=== PATIENT | female | born 1940 | race Caucasian/White ===

== ENCOUNTER → 2016-08-18 | Outpatient (CLI) | payer MEDICARE, OTHER ==
--- NOTE | 2016-08-18 17:06 | CT ---
EXAMINATION TYPE: CT brain wo con DATE OF EXAM: 08/18/2016 4:54 PM COMPARISON: NONE HISTORY: History of stroke. Dizziness and sense of falling to right. CT DLP: 1109.00 mGycm Automated exposure control for dose reduction was used. FINDINGS: Ventricular system is midline. No mass effect or midline shift. Hyperostosis noted. Partially empty s bryon turcica noted.. IMPRESSION: No acute intracranial hemorrhage, mass effect, or midline shift is seen.
== END | disposition home or self-care (01) ==
LOC: RADCTMAIN 16:11
PROVIDERS: ATTEND Psychiatry & Neurology Neurology
DX: Z86.73 Personal history of transient ischemic attack (TIA), and cerebral infarction without residual deficits (principal)
CPT/HCPCS: 70450

== ENCOUNTER → 2017-09-21 | Outpatient (CLI) | payer MEDICARE, OTHER | END | disposition home or self-care (01) | LOC: LABPAT 08:01 | PROVIDERS: ATTEND Orthopaedic Surgery | DX: Z01.812 Encounter for preprocedural laboratory examination (principal); M16.11 Unilateral primary osteoarthritis, right hip | CPT/HCPCS: 36415; 86850; 86900; 86901; 87070 ==

== ENCOUNTER → 2017-09-26 | Outpatient (CLI) | payer MEDICARE, OTHER ==
[2017-09-26 11:51] LABS: Basophils # (A) 0.1 k/uL (0-0.2); Basophils % (A) 1 %; Eosinophils # (A) 0.3 k/uL (0-0.7); Eosinophils % (A) 6 %; HCT 41.9 % (34.0-46.0); Hypochromasia Slight; Lymphocytes # (A) 1.6 k/uL (1.0-4.8); Lymphocytes % (A) 26 %; MCH 30.6 pg (25.0-35.0); MCHC 31.1 g/dL (31.0-37.0); MCV 98.3 fL (80.0-100.0); Mean Platelet Volume 8.2; Monocytes # (A) 0.5 k/uL (0-1.0); Monocytes % (A) 9 %; Neutrophils # (A) 3.4 k/uL (1.3-7.7); Neutrophils % (A) 56 %; Platelet Count 162 k/uL (150-450); RBC 4.26 m/uL (3.80-5.40)
[2017-09-26 11:59] LABS: INR 1.1 (<1.2); Prothrombin Time 10.4 sec (9.0-12.0)
[2017-09-26 12:07] LABS: Potassium 4.5 mmol/L (3.5-5.1)
== END | disposition home or self-care (01) ==
LOC: LABPAT 11:03
PROVIDERS: ATTEND Orthopaedic Surgery
DX: Z01.812 Encounter for preprocedural laboratory examination (principal); M16.11 Unilateral primary osteoarthritis, right hip; Z79.01 Long term (current) use of anticoagulants
CPT/HCPCS: 36415; 80051; 85025; 85610

== ENCOUNTER 2017-09-27 10:30 | Inpatient (IN) | payer MEDICARE, OTHER ==
[2017-09-22 12:40] VITALS: BMI 27.1
--- NOTE | 2017-10-01 15:54 | HP ---
HISTORY AND PHYSICAL Surgery is 10/02/2017. Azul Ravi 76-year-old patient seen with symptomatic right hip osteoarthritis. After treatment options were discussed, she elected to proceed with right total hip arthroplasty. Consent regarding procedure was obtained. Medical clearance provided by Dr. Riley. Cardiac clearance provided by Dr. Cosby. PAST MEDICAL HISTORY: [id number] diabetes, gastroesophageal reflux disease, cardiovascular disease, hyperlipidemia, hypertension. PAST SURGICAL HISTORY: Carpal tunnel surgery, cholecystectomy, knee arthroscopy, rotator cuff repair. Bunionectomy. DAILY MEDICATIONS: Metformin, Micardis, Plavix, Zantac, Vytorin, Orencia, Neurontin. ALLERGIES: ERYTHROMYCIN, ZOFRAN. SOCIAL HISTORY: Patient denies tobacco use. PHYSICAL EXAMINATION: Evaluation right hip: There is very limited range of motion with severe pain. Diffuse tenderness about the hip girdle. Positive hip impingement sign. Straight leg raise is negative. Distal neurovascular exam is intact. RADIOGRAPHS: Radiographs of the right hip reveals severe osteoarthritis. IMPRESSION: 1. Right hip osteoarthritis. 2. Hypertension. 3. Hypercholesterolemia. 4. Gastroesophageal reflux disease. 5. Jkr-bpncgip-elnowfqmg diabetes. PLAN: Direct anterior right total hip arthroplasty. MMODL / IJN: [id number] /
[2017-10-02] MEDS ORDERED: TRANEXAMIC ACID 1,000 MG in SODIUM CHLORIDE 0.9% 50 ML IVPB ONE (05:00)
[2017-10-02] MEDS ORDERED: MELOXICAM 7.5 MG TAB PO ONE (05:00)
[2017-10-02] MEDS ORDERED: ceFAZolin IN SWFI 2 GM/20 ML SYRINGE IVP ONE (05:00)
[2017-10-02] MEDS ORDERED: ACETAMINOPHEN TAB 500 MG TAB PO ONE (05:00)
[2017-10-02] MEDS ORDERED: HYDROmorphone 0.5 MG/0.5 ML SYRINGE IVP PRN ×4 (05:27→12:06)
[2017-10-02] MEDS ORDERED: DEXAMETHASONE SOD PHOSPHATE 10 MG/ML 1 ML VIAL IV ONE (05:27)
[2017-10-02] MEDS ORDERED: ONDANSETRON 4 MG/2 ML VIAL IVP ONE (05:27)
[2017-10-02] MEDS: LACTATED RINGERS 1,000 ML IV SCH (08:59)
[2017-10-02] MEDS ORDERED: LIDOCAINE 1% 20 ML VIAL (10MG/ML) FOR IV START INTRADERMA ONE (08:59)
[2017-10-02 09:08] LABS: Glucose,Whole Blood 176 mg/dL (75-99)
[2017-10-02] MEDS ORDERED: ROPIVACAINE 246.25 MG, EPINEPHrine 0.5 MG, KETOROLAC 30 MG, cloNIDine HCL/PF 80 MCG, WA... MISCELLANE ONE ×5 (09:55)
[2017-10-02] MEDS ORDERED: ceFAZolin 3,000 MG in SODIUM CHLORIDE 0.9% IRRIGATIO 3,000 ML IRRIGATION ONE (10:58)
--- NOTE | 2017-10-02 11:54 | FL ---
Fluoroscopy INDICATION: Pain FINDINGS: Fluoroscopy time: 22 seconds. Images obtained: 1. IMPRESSIONS: 1. Documentation of fluoroscopy.
--- NOTE | 2017-10-02 12:04 | P.OP ---
Date of Procedure: 10/02/17 Preoperative Diagnosis: Right hip osteoarthritis Postoperative Diagnosis: Right hip osteoarthritis Procedure(s) Performed: Direct anterior right total hip arthroplasty Implants: 1. Depuy Corail GUILLORY-coated standard no collar size 13 press-fit femoral stem 2. Depuy pinnacle press-fit acetabular shell 52 mm 3. Depuy pinnacle polyethylene acetabular liner neutral 36 mm ID 52 mm OD 4. Depuy metallic femoral head 36 mm -2 Anesthesia: ADALA, local Surgeon: Asim Oliver Toolroom Attendant #1: Andrea Way Estimated Blood Loss (ml): 250 Pathology: other (Femoral head) Condition: stable Disposition: PACU Indications for Procedure: 76-year-old patient seen with symptomatic right hip osteoarthritis. After treatment options were discussed, she elected to proceed with total hip arthroplasty. Operative Findings: See description of procedure Description of Procedure: The patient was taken to the operative suite. Patient underwent a general anesthetic by the department of anesthesia. Patient was then transferred to the [place] table. Patient was given preoperative IV antibiotics and TXA. Both lower extremities were placed in standard leg spars. The hip was then prepped and draped in the normal sterile orthopedic fashion. A standard anterior incision was made beginning 3 cm lateral and 1 cm distal to the ASIS extending 10 cm. Dissection was then carried down through the subcutaneous soft tissues down to the fascia overlying the tensor fascia florencia. An incision was now made through the fascia. Careful dissection was taken down exposing the tensor fascia florencia muscle. A Cobra retractor was now placed along the medial femoral neck and a second one along the lateral femoral neck. The venous circumflex vessels were now identified, cauterized and clipped. We identified the anterior hip capsule. An incision was made through the hip capsule along the lateral border. Tag sutures were then placed along the anterior capsule and lateral capsule. We then performed a capsulotomy. Retractors were now placed around the femoral neck itself. A Cobra retractor was now placed along the anterior acetabulum. Good exposure was now noted of the femoral head/neck complex. Residual labrum was debrided out. We placed the extremity into 3 turns of fine traction. We were then able to introduce a skid in between the femoral head and acetabulum. A placed a awl into the femoral head. We took 2 turns of traction off the extremity. Rotation was now released. The femoral head was then dislocated without difficulty. Additional releasing was performed of the capsule. The head was then reduced. All traction was released. A femoral neck cut was now made with a sagittal saw. It was completed with an osteotome at the lateral neck area. The femoral head was now removed without difficulty. There was advanced osteoarthritis of both the femoral head and acetabulum. The extremity was now rotated to 60 of external rotation. It was locked in position. Residual labrum was now debrided out. Serial reaming was performed of the acetabulum. Once we reached the appropriate size and a trial was position and fit nicely. The appropriate size was now chosen opened and made available. The wound was irrigated with pulse lavage mechanical irrigation. It was introduced into the acetabulum without difficulty. The C-arm/fluoroscopy was now brought into the operative field. We made sure we had a true AP pelvic view. We now under direct C-arm/ fluoroscopy introduced into the acetabular component with appropriate version and inclination. It was well seated and stable. The C-arm was pulled back. An appropriate liner was introduced and clicked into position. It was felt to be stable. At this point retractors were removed. The extremity was now placed into 120 external rotation with no traction. The leg was now dropped to the ground and adducted. Appropriate retractors were now positioned along the proximal femur. We also placed our femoral look into position. Additional capsular releasing was performed to gain access to the proximal femur. We now used a box osteotome. A canal finder was now utilized. Serial broaching was now performed until we reached the appropriate size with good overall rotational stability. Appropriate calcar planing was performed. A trial head/ neck was placed into position. The hip was now reduced. The C-arm/fluoroscopy was brought back into the operative field. A spot film was obtained of the nonoperative hip. A spot film was obtained of the trial components. Overlays were performed, we noted good overall alignment and positioning for determining leg length. The C-arm/fluoroscopy was pulled back. Retractors were repositioned and the hip was dislocated. The leg was again taken down to the ground and adducted. Appropriate retractors were repositioned as well as the femoral hook. All trial components were removed. The wound was irrigated with pulse lavage mechanical irrigation. The deep soft tissues were infiltrated with local analgesic. The femoral implant was opened along with the femoral head. The femoral implant was introduced with good purchase and fixation noted. The femoral head was introduced with good positioning and fixation noted. Retractors were now removed. The hip was now reduced. There appeared be good positioning of the hip. This was confirmed on fluoroscopy and spot films were obtained intraoperatively to document that. Bipolar cautery had been utilized intermittently through the procedure for hemostasis. The wound was irrigated copiously with pulse lavage mechanical irrigation. The superficial soft tissues were infiltrated local analgesic. The fascia was repaired with Vicryl suture. The subcutaneous soft tissues were repaired in layers with Vicryl suture. The skin was approximated with pernio/Dermabond. Sterile dressings were applied. Patient was then awakened, transferred to a bed and taken to recovery in stable condition. Jorge A ALVARADO assisted with the procedure.
[2017-10-02] MEDS ORDERED: ONDANSETRON 4 MG/2 ML VIAL IVP PRN (12:06)
[2017-10-02] MEDS ORDERED: NALOXONE 0.4 MG/ML 1 ML VIAL IV PRN (12:06)
[2017-10-02] MEDS: ePHEDrine 50 MG/ML 1 ML AMP IVP ONE ×3 (12:38→12:52)
[2017-10-02] MEDS ORDERED: LACTATED RINGERS 1,000 ML IV ONE (12:42)
[2017-10-02] MEDS: HYDROcodone/APAP 7.5-325MG 1 EACH TAB PO PRN ×2 (14:29→21:22)
[2017-10-02] MEDS: traMADol 50 MG TAB PO SCH ×2 (15:20→17:36)
[2017-10-02] MEDS: SODIUM CHLORIDE 0.9% 1,000 ML IV SCH (16:59)
[2017-10-02 17:00] LABS: Glucose,Whole Blood 224 mg/dL (75-99)
[2017-10-02] MEDS: ceFAZolin IN SWFI 2 GM/20 ML SYRINGE IVP SCH (17:36)
[2017-10-02 20:58] LABS: Glucose,Whole Blood 206 mg/dL (75-99)
[2017-10-02] MEDS: SENNOSIDES-DOCUSATE SODIUM 1 EACH TAB PO SCH (22:09)
[2017-10-02] MEDS: INSULIN ASPART 100 UNIT/ML 1 ML 10 ML VIAL SQ SCH (22:10)
[2017-10-02 22:29] LABS: Basophils % (A) 0 %; Eosinophils % (A) 0 %; HCT 31.6 % (34.0-46.0); HGB 10.1 gm/dL (11.4-16.0); Lymphocytes # (A) 0.9 k/uL (1.0-4.8); Lymphocytes % (A) 8 %; MCH 30.6 pg (25.0-35.0); MCHC 31.8 g/dL (31.0-37.0); MCV 96.1 fL (80.0-100.0); Mean Platelet Volume 8.1; Monocytes # (A) 0.7 k/uL (0-1.0); Monocytes % (A) 6 %; Neutrophils # (A) 9.6 k/uL (1.3-7.7); Neutrophils % (A) 85 %; Platelet Count 130 k/uL (150-450); RBC 3.29 m/uL (3.80-5.40); WBC 11.3 k/uL (3.8-10.6)
[2017-10-02 22:44] LABS: Anion Gap 10 mmol/L; Blood Urea Nitrogen 24 mg/dL (7-17); Carbon Dioxide 25 mmol/L (22-30); Chloride 102 mmol/L (98-107); Glucose 182 mg/dL (74-99); Potassium 4.7 mmol/L (3.5-5.1); Sodium 137 mmol/L (137-145)
[2017-10-02] MEDS: metFORMIN 500 MG TAB PO SCH (23:08)
[2017-10-02] MEDS: GABAPENTIN 400 MG CAP PO SCH (23:09)
[2017-10-03] MEDS: traMADol 50 MG TAB PO SCH ×6 (00:12→22:35)
--- NOTE | 2017-10-03 01:03 | CONS ---
CONSULTATION DATE OF SERVICE: 10/02/2017. REASON FOR CONSULTATION: Advice regarding diabetes mellitus and multiple other medical issues, requested by Orthopedic Surgery. HISTORY: The patient is a 76-year-old woman with a past history diabetes, hypertension, history of DJD, rheumatoid arthritis, being followed by Dr. Riley in the outpatient setting, underwent direct anterior right total hip arthroplasty by Dr. Oliver. There is no history of chest pain, no palpitations, no headache or loss consciousness. No nausea, vomiting or diarrhea. PAST MEDICAL HISTORY: Asthma, CVA, TIA, diabetes, hypertension, hyperlipidemia, history of DJD, history of rheumatoid arthritis. MEDICATIONS: Prior home medications: 1. Metformin 500 mg p.o. t.i.d. 2. Norvasc 5 mg p.o. daily. 3. Valsartan hydrochlorothiazide 320/10 mg p.o. a.m. 4. Multivitamins daily. 5. Singular 10 mg at bedtime. 6. [place] 7.5, 1 to 2 tables every 6 hours. 7. Neurontin 800 mg p.o. q.i.d. 8. Lodine 400 mg p.o. b.i.d. 9. Nexium 40 mg b.i.d. 10.Plavix 10 mg b.i.d. 11.Vitamin D3, 5000 daily. 12.Lipitor 40 mg every a.m. 13.Tenormin 12.5 mg a.m. ALLERGIES: REMICADE, ZOFRAN, ERYTHROMYCIN. FAMILY HISTORY: History of cancer in the family. SOCIAL HISTORY: No history of smoking. Occasional alcohol intake. REVIEW OF SYSTEMS: ENT: No diminished vision. CARDIOVASCULAR: No angina. RESPIRATORY: No cough or hemoptysis. GI: No nausea. : No dysuria. NERVOUS SYSTEM: No numbness or weakness. ALLERGY: None. MUSCULOSKELETAL: As mentioned earlier. ENDOCRINE: History of diabetes. CONSTITUTIONAL: As mentioned earlier. DERMATOLOGY: As mentioned. RHEUMATOLOGIC: As mentioned. PHYSICAL EXAMINATION: Alert, oriented x3. Pulse 64, blood pressure 94/60, respiration 20, temp normal, pulse ox 94% on room air. HEENT: Normal. Oral mucosa moist. NECK: No jugular venous distention. No lymph node enlargement. CARDIOVASCULAR: S1 and S2 muffled. LUNGS: Breath sounds diminished in the bases. No rhonchi, no crackles. ABDOMEN: Soft. LEGS: Status post surgery. NERVOUS SYSTEM: Higher functions as mentioned. Moves all four limbs. No focal deficits. SKIN: No rashes. JOINTS: As mentioned earlier. LAB STUDIES: Glucose 206. ASSESSMENT: 1. Status post right hip arthroplasty. 2. Diabetes type 2. 3. Hypertension. 4. Hyperlipidemia. 5. Relative hypotension. 6. History of degenerative joint disease. 7. History of rheumatoid arthritis. 8. History of asthma. 9. History of cholecystectomy. 10.History of degenerative joint disease. RECOMMENDATIONS: Recommend to continue current management and symptomatic treatment. Otherwise at this time I recommend continue with current medications. IV fluid boluses. Hold the blood pressure medications. Otherwise will order stat labs and repeat labs also. Will continue to monitor. Further recommendations to follow. MMUVALDOL / IJN: [id number] /
[2017-10-03] MEDS: ceFAZolin IN SWFI 2 GM/20 ML SYRINGE IVP SCH (01:57)
[2017-10-03 07:02] LABS: Glucose,Whole Blood 140 mg/dL (75-99)
[2017-10-03 07:20] LABS: Anion Gap 6 mmol/L; Blood Urea Nitrogen 24 mg/dL (7-17); Calcium 8.7 mg/dL (8.4-10.2); Carbon Dioxide 28 mmol/L (22-30); Chloride 104 mmol/L (98-107); Glucose 129 mg/dL (74-99); Potassium 4.2 mmol/L (3.5-5.1); Sodium 138 mmol/L (137-145)
[2017-10-03 07:31] LABS: Basophils % (A) 0 %; Eosinophils % (A) 0 %; HGB 9.1 gm/dL (11.4-16.0); Lymphocytes # (A) 1.3 k/uL (1.0-4.8); Lymphocytes % (A) 23 %; MCHC 31.3 g/dL (31.0-37.0); MCV 95.8 fL (80.0-100.0); Mean Platelet Volume 8.5; Monocytes # (A) 0.5 k/uL (0-1.0); Monocytes % (A) 10 %; Neutrophils # (A) 3.7 k/uL (1.3-7.7); Neutrophils % (A) 65 %; Platelet Count 103 k/uL (150-450); RBC 3.03 m/uL (3.80-5.40); RDW 13.2 % (11.5-15.5); WBC 5.6 k/uL (3.8-10.6)
[2017-10-03] MEDS: ENOXAPARIN 40 MG/0.4 ML SYRINGE SQ SCH (08:01)
[2017-10-03] MEDS: metFORMIN 500 MG TAB PO SCH ×3 (08:01→22:29)
[2017-10-03] MEDS: FAMOTIDINE 20 MG TAB PO SCH (08:01)
[2017-10-03] MEDS: MELOXICAM 7.5 MG TAB PO SCH (08:01)
[2017-10-03] MEDS: PANTOPRAZOLE 40 MG TABLET PO SCH (08:01)
[2017-10-03] MEDS: GABAPENTIN 400 MG CAP PO SCH ×4 (08:01→22:29)
[2017-10-03] MEDS: INSULIN ASPART 100 UNIT/ML 1 ML 10 ML VIAL SQ SCH ×4 (08:01→22:28)
[2017-10-03] MEDS: LACTATED RINGERS 1,000 ML IV SCH (08:10)
[2017-10-03] MEDS: HYDROcodone/APAP 7.5-325MG 1 EACH TAB PO PRN ×2 (11:23→18:06)
[2017-10-03 11:37] LABS: Glucose,Whole Blood 121 mg/dL (75-99)
--- NOTE | 2017-10-03 12:06 | P.PN ---
Subjective Progress Note Date: 10/03/17 Principal diagnosis: Status post right total hip arthroplasty Patient is seen today resting in her hospital bed, she appears comfortable. She has ambulate well with physical therapy. She doesn't have much of an appetite today, she did note some nausea yesterday after coming to the floor. She denies any headaches, lightheadedness, chest pain or shortness of breath. Objective - Vital Signs Vital signs: Vital Signs Temp 98.0 F 10/03/17 07:00 Pulse 67 10/03/17 07:00 Resp 14 10/03/17 07:00 BP 95/60 10/03/17 07:00 Pulse Ox 94 L 10/03/17 07:00 Intake & Output 10/02/17 10/03/17 10/03/17 18:59 06:59 18:59 Intake Total 1501 Output Total 250 Balance 1251 Weight 67.132 kg Intake: IV 1501 Output: Estimated Blood Loss 250 Other: # Voids 0 - Exam Right lower extremity: Incision is clean, dry, and intact. There is minimal soft tissue swelling and ecchymosis surrounding the medial and lateral aspects of the incision. Calf is soft, no tenderness with palpation. Plantar flexion, dorsiflexion, EHL, FHL are intact. Sensory exam to light touch throughout the extremity is intact, dorsal pedis pulses 2+. - Labs CBC & Chem 7: 10/03/17 06:54 10/03/17 06:54 Labs: Abnormal Lab Results - Last 24 Hours (Table) 10/02/17 10/02/17 10/02/17 Range/Units 16:58 20:53 22:08 WBC 11.3 H (3.8-10.6) k/uL RBC 3.29 L (3.80-5.40) m/uL Hgb 10.1 L (11.4-16.0) gm/dL Hct 31.6 L (34.0-46.0) % Plt Count 130 L (150-450) k/uL Neutrophils # 9.6 H (1.3-7.7) k/uL Lymphocytes # 0.9 L (1.0-4.8) k/uL BUN (7-17) mg/dL Glucose (74-99) mg/dL POC Glucose (mg/dL) 224 H 206 H (75-99) mg/dL 10/02/17 10/03/17 10/03/17 Range/Units 22:08 06:48 06:54 WBC (3.8-10.6) k/uL RBC 3.03 L (3.80-5.40) m/uL Hgb 9.1 L (11.4-16.0) gm/dL Hct 29.0 L (34.0-46.0) % Plt Count 103 L (150-450) k/uL Neutrophils # (1.3-7.7) k/uL Lymphocytes # (1.0-4.8) k/uL BUN 24 H (7-17) mg/dL Glucose 182 H (74-99) mg/dL POC Glucose (mg/dL) 140 H (75-99) mg/dL 10/03/17 10/03/17 Range/Units 06:54 11:31 WBC (3.8-10.6) k/uL RBC (3.80-5.40) m/uL Hgb (11.4-16.0) gm/dL Hct (34.0-46.0) % Plt Count (150-450) k/uL Neutrophils # (1.3-7.7) k/uL Lymphocytes # (1.0-4.8) k/uL BUN 24 H (7-17) mg/dL Glucose 129 H (74-99) mg/dL POC Glucose (mg/dL) 121 H (75-99) mg/dL Assessment and Plan Plan: Assessment: 1. Postop day #1 status post right total hip arthroplasty Plan: 1. Pain control, continue supportive oral medication 2. Continue work with physical therapy 3. Daily dressing changes/ice and elevate 4. GI and DVT prophylaxis, continue current medication 5. Encourage incentive spirometer 6. Medical recommendations 7. Discharge planning: Patient will likely be discharged home tomorrow Time with Patient: Less than 30
[2017-10-03 12:10] LABS: Hemoglobin A1C 6.8 % (4.0-6.0)
[2017-10-03] MEDS: MULTIVITAMINS, THERA 1 EACH TAB PO SCH (12:56)
[2017-10-03] MEDS: CHOLECALCIFEROL 1,000 UNIT TAB PO SCH (12:56)
[2017-10-03] MEDS: SODIUM CHLORIDE 0.9% 1,000 ML IV SCH (12:59)
[2017-10-03 16:42] LABS: Glucose,Whole Blood 146 mg/dL (75-99)
--- NOTE | 2017-10-03 17:59 | PN ---
PROGRESS NOTE DATE OF SERVICE: 10/03/2017 This 76-year-old woman was admitted after right hip surgery is improving significantly. No chest pain. No palpitations. No fever. PHYSICAL EXAM: Alert and oriented times three. Pulse 78, blood pressure 140/70, respirations 16, temperature 97.2, pulse ox 94% on room air. HEENT: Conjunctivae normal. Neck: No jugular venous distention. Cardiovascular: S1, S2 muffled. RESPIRATORY SYSTEM: Breath sounds diminished at the bases. No rhonchi and no crackles. ABDOMEN: Soft, nontender. LEGS: Status post hip surgery. Nervous system: No focal deficits. LABS: WBC 5.2, hemoglobin 9.1. ASSESSMENT: 1. Status post right hip arthroplasty. 2. Diabetes type 2. 3. Hypertension. 4. Hyperlipidemia. 5. Relative hypotension. 6. History degenerative joint disease. 7. History rheumatoid arthritis. 8. History of asthma. 9. History of cholecystectomy. 10.History of degenerative joint disease. RECOMMENDATIONS AND DISCUSSION: Continue current management and symptomatic treatment. Otherwise repeat labs. Continue the current medication. DVT prophylaxis. Closely follow with Orthopedic Surgery. Further recommendations to follow. MMODL / IJN: [id number] /
[2017-10-03 19:48] LABS: Glucose,Whole Blood 159 mg/dL (75-99)
[2017-10-03] MEDS: ATORVASTATIN 40 MG TAB PO SCH (22:28)
[2017-10-03] MEDS: MONTELUKAST 10 MG TAB PO SCH (22:29)
[2017-10-03] MEDS: SENNOSIDES-DOCUSATE SODIUM 1 EACH TAB PO SCH (22:29)
[2017-10-04 07:14] LABS: Glucose,Whole Blood 152 mg/dL (75-99)
[2017-10-04] MEDS: HYDROcodone/APAP 7.5-325MG 1 EACH TAB PO PRN ×2 (08:36→18:51)
[2017-10-04] MEDS: SODIUM CHLORIDE 0.9% 1,000 ML IV SCH (09:15)
[2017-10-04] MEDS: LACTATED RINGERS 1,000 ML IV SCH (09:15)
[2017-10-04] MEDS: traMADol 50 MG TAB PO SCH ×4 (09:16→20:33)
[2017-10-04] MEDS: metFORMIN 500 MG TAB PO SCH ×3 (09:17→21:21)
[2017-10-04] MEDS: GABAPENTIN 400 MG CAP PO SCH ×4 (09:17→21:21)
[2017-10-04] MEDS: FAMOTIDINE 20 MG TAB PO SCH (09:17)
[2017-10-04] MEDS: MELOXICAM 7.5 MG TAB PO SCH (09:17)
[2017-10-04] MEDS: ENOXAPARIN 40 MG/0.4 ML SYRINGE SQ SCH (09:17)
[2017-10-04] MEDS: PANTOPRAZOLE 40 MG TABLET PO SCH (09:17)
[2017-10-04] MEDS: MULTIVITAMINS, THERA 1 EACH TAB PO SCH (09:17)
[2017-10-04] MEDS: CHOLECALCIFEROL 1,000 UNIT TAB PO SCH (09:17)
[2017-10-04] MEDS: INSULIN ASPART 100 UNIT/ML 1 ML 10 ML VIAL SQ SCH ×4 (09:18→20:32)
[2017-10-04 11:38] LABS: Glucose,Whole Blood 160 mg/dL (75-99)
--- NOTE | 2017-10-04 12:19 | P.PN ---
Subjective Progress Note Date: 10/04/17 Principal diagnosis: Status post right total hip arthroplasty Patient is seen today resting in her hospital bed, she appears comfortable. She has ambulate well with physical therapy. She continues to have some nausea today, she also complains of some nasal congestion at this time. She denies any headaches, lightheadedness, chest pain or shortness of breath. Objective - Vital Signs Vital signs: Vital Signs Temp 101.2 F H 10/04/17 08:20 Pulse 85 10/04/17 08:20 Resp 17 10/04/17 08:20 BP 117/53 10/04/17 08:20 Pulse Ox 96 10/04/17 08:20 Intake & Output 10/03/17 10/04/17 10/04/17 18:59 06:59 18:59 Intake Total 480 Output Total 2 Balance 478 Intake: Oral 480 Output: Urine 2 Other: # Voids 2 1 - Exam Right lower extremity: Incision is clean, dry, and intact. There is minimal soft tissue swelling and ecchymosis surrounding the medial and lateral aspects of the incision. Calf is soft, no tenderness with palpation. Plantar flexion, dorsiflexion, EHL, FHL are intact. Sensory exam to light touch throughout the extremity is intact, dorsal pedis pulses 2+. - Labs CBC & Chem 7: 10/03/17 06:54 10/03/17 06:54 Labs: Abnormal Lab Results - Last 24 Hours (Table) 10/03/17 10/03/17 10/04/17 Range/Units 16:37 19:44 07:08 POC Glucose (mg/dL) 146 H 159 H 152 H (75-99) mg/dL 10/04/17 Range/Units 11:33 POC Glucose (mg/dL) 160 H (75-99) mg/dL Assessment and Plan Plan: Assessment: 1. Postop day #2 status post right total hip arthroplasty Plan: 1. Pain control, continue supportive oral medication 2. Continue work with physical therapy 3. Daily dressing changes/ice and elevate 4. GI and DVT prophylaxis, continue current medication 5. Encourage incentive spirometer 6. Medical recommendations, they are ordering a urinary analysis today 7. Discharge planning: Likely keep patient one additional night with plan for discharge home tomorrow Time with Patient: Less than 30
[2017-10-04] MEDS: PSEUDOEPHEDRINE 30 MG TAB PO PRN (13:31)
[2017-10-04 16:56] LABS: Glucose,Whole Blood 148 mg/dL (75-99)
[2017-10-04 17:23] LABS: Appearance,Urine Clear (Clear); Bacteria,Urine Rare /hpf; Bilirubin,Urine Negative (Negative); Blood,Urine Negative (Negative); Color,Urine Yellow; Glucose,Urine (UA) Negative (Negative); Hyaline Casts,Urine 1 /lpf (0-2); Ketones,Urine Negative (Negative); Leukocyte Esterase,Urine Small (Negative); Mucus,Urine Rare /hpf; Protein,Urine Negative (Negative); RBC,Urine 1 /hpf (0-5); Specific Gravity,Urine 1.009 (1.001-1.035); Squamous Epithelial Cell,Urine <1 /hpf (0-4); Urobilinogen,Urine <2.0 mg/dL (<2.0); WBC,Urine 4 /hpf (0-5)
--- NOTE | 2017-10-04 19:54 | XR ---
EXAMINATION TYPE: XR chest 1V portable DATE OF EXAM: 10/04/2017 COMPARISON: NONE HISTORY: Fever TECHNIQUE: Single frontal view of the chest is obtained. FINDINGS: Heart and mediastinum are normal. Lungs are clear. Diaphragm is normal. Bony thorax is int act. There is spurring in the thoracic spine. IMPRESSION: No active cardiopulmonary disease.
--- NOTE | 2017-10-04 20:12 | PN ---
PROGRESS NOTE DATE OF SERVICE: 10/04/2017 This 76-year-old woman who was admitted with right hip surgery is improving significantly. No chest pain. No palpitations. No fever. The patient is running a mild fever. On exam, alert and oriented x3. Pulse is 79, blood pressure 113/54, respiration 16, temperature 99.1, T-max 101.2, pulse ox 100% on room air. HEENT: Conjunctivae normal. Oral mucosa moist. NECK: No jugular venous distention. No carotid bruit. No lymph node enlargement. CARDIOVASCULAR SYSTEM: S1, S2 muffled. RESPIRATORY SYSTEM: Breath sounds diminished at the bases. No rhonchi. No crackles. ABDOMEN: Soft, non-tender. LEGS: No edema. No swelling. NERVOUS SYSTEM: No focal deficit. The patient is also complaining of also. LABS: WBC 5.6, hemoglobin 9.1, glucose 148. UA unremarkable. Influenza is negative. Chest x-ray is not available. ASSESSMENT: 1. Status post right hip arthroplasty. 2. Fever for evaluation. 3. Diabetes mellitus, type 2. 4. Hypertension. 5. Hyperlipidemia. 6. Relative hypotension. 7. History of degenerative joint disease. 8. History of rheumatoid arthritis. 9. History of asthma. 10.History of cholecystectomy. RECOMMENDATIONS AND DISCUSSION: I recommend to continue current medications, continue with symptomatic treatment. I would recommend a portable chest x-ray. Monitor closely. Cultures. Repeat labs. There is no obvious cause for fever at this time. Continue to monitor. Further recommendations to follow. I would also recommend a liver function panel. Closely follow with Orthopedic Surgery. ROGERSL / IJN: [id number] / LENY
[2017-10-04 20:13] LABS: Glucose,Whole Blood 174 mg/dL (75-99)
[2017-10-04] MEDS: ATORVASTATIN 40 MG TAB PO SCH (20:31)
[2017-10-04] MEDS: SENNOSIDES-DOCUSATE SODIUM 1 EACH TAB PO SCH (20:31)
[2017-10-04] MEDS: MONTELUKAST 10 MG TAB PO SCH (20:32)
[2017-10-05 06:50] LABS: Basophils % (A) 1 %; Eosinophils # (A) 0.2 k/uL (0-0.7); Eosinophils % (A) 3 %; HCT 25.3 % (34.0-46.0); HGB 8.1 gm/dL (11.4-16.0); Lymphocytes # (A) 1.1 k/uL (1.0-4.8); Lymphocytes % (A) 20 %; MCH 30.4 pg (25.0-35.0); MCHC 32.1 g/dL (31.0-37.0); MCV 94.8 fL (80.0-100.0); Mean Platelet Volume 8.7; Monocytes # (A) 0.4 k/uL (0-1.0); Monocytes % (A) 8 %; Neutrophils # (A) 3.8 k/uL (1.3-7.7); Neutrophils % (A) 66 %; RBC 2.67 m/uL (3.80-5.40); RDW 13.1 % (11.5-15.5); WBC 5.7 k/uL (3.8-10.6)
[2017-10-05 06:54] LABS: ALT 28 U/L (9-52); AST 38 U/L (14-36); Albumin 2.9 g/dL (3.5-5.0); Alkaline Phosphatase 44 U/L (38-126); Anion Gap 5 mmol/L; Blood Urea Nitrogen 11 mg/dL (7-17); Calcium 8.6 mg/dL (8.4-10.2); Carbon Dioxide 30 mmol/L (22-30); Chloride 102 mmol/L (98-107); Glucose 145 mg/dL (74-99); Potassium 4.4 mmol/L (3.5-5.1); Sodium 137 mmol/L (137-145); Total Bilirubin 1.4 mg/dL (0.2-1.3)
[2017-10-05 07:01] LABS: Glucose,Whole Blood 163 mg/dL (75-99)
[2017-10-05] MEDS: SODIUM CHLORIDE 0.9% 1,000 ML IV SCH (07:23)
[2017-10-05] MEDS: LACTATED RINGERS 1,000 ML IV SCH (07:23)
[2017-10-05] MEDS: traMADol 50 MG TAB PO SCH ×2 (08:09→12:43)
[2017-10-05] MEDS: ENOXAPARIN 40 MG/0.4 ML SYRINGE SQ SCH (08:14)
[2017-10-05] MEDS: MELOXICAM 7.5 MG TAB PO SCH (08:14)
[2017-10-05] MEDS: INSULIN ASPART 100 UNIT/ML 1 ML 10 ML VIAL SQ SCH ×2 (08:14→13:10)
[2017-10-05] MEDS: metFORMIN 500 MG TAB PO SCH (08:14)
[2017-10-05] MEDS: PANTOPRAZOLE 40 MG TABLET PO SCH (08:14)
[2017-10-05] MEDS: HYDROcodone/APAP 7.5-325MG 1 EACH TAB PO PRN (08:14)
[2017-10-05] MEDS: GABAPENTIN 400 MG CAP PO SCH ×2 (08:14→12:46)
[2017-10-05 08:20] LABS: Platelet Count 90 k/uL (150-450)
--- NOTE | 2017-10-05 09:07 | P.PN ---
Subjective Progress Note Date: 10/05/17 Principal diagnosis: Status post right total hip arthroplasty Patient is seen today resting in her hospital bed, she appears comfortable. She has ambulate well with physical therapy. Nausea has improved. She denies any headaches, lightheadedness, chest pain or shortness of breath. Objective - Vital Signs Vital signs: Vital Signs Temp 99.0 F 10/05/17 07:29 Pulse 92 10/05/17 07:29 Resp 16 10/05/17 07:29 BP 106/55 10/05/17 07:29 Pulse Ox 92 L 10/05/17 07:29 Intake & Output 10/04/17 10/05/17 10/05/17 18:59 06:59 18:59 Intake Total 720 830 Balance 720 830 Intake: Oral 720 830 Other: # Voids 2 3 - Exam Right lower extremity: Incision is clean, dry, and intact. There is minimal soft tissue swelling and ecchymosis surrounding the medial and lateral aspects of the incision. Calf is soft, no tenderness with palpation. Plantar flexion, dorsiflexion, EHL, FHL are intact. Sensory exam to light touch throughout the extremity is intact, dorsal pedis pulses 2+. - Labs CBC & Chem 7: 10/05/17 06:08 10/05/17 06:08 Labs: Abnormal Lab Results - Last 24 Hours (Table) 10/04/17 10/04/17 10/04/17 Range/Units 11:33 16:53 17:00 RBC (3.80-5.40) m/uL Hgb (11.4-16.0) gm/dL Hct (34.0-46.0) % Plt Count (150-450) k/uL Glucose (74-99) mg/dL POC Glucose (mg/dL) 160 H 148 H (75-99) mg/dL Total Bilirubin (0.2-1.3) mg/dL AST (14-36) U/L Total Protein (6.3-8.2) g/dL Albumin (3.5-5.0) g/dL Ur Leukocyte Esterase Small H (Negative) Urine Bacteria Rare H (None) /hpf Urine Mucus Rare H (None) /hpf 10/04/17 10/05/17 10/05/17 Range/Units 20:11 06:08 06:08 RBC 2.67 L (3.80-5.40) m/uL Hgb 8.1 L (11.4-16.0) gm/dL Hct 25.3 L (34.0-46.0) % Plt Count 90 L (150-450) k/uL Glucose 145 H (74-99) mg/dL POC Glucose (mg/dL) 174 H (75-99) mg/dL Total Bilirubin 1.4 H (0.2-1.3) mg/dL AST 38 H (14-36) U/L Total Protein 5.0 L (6.3-8.2) g/dL Albumin 2.9 L (3.5-5.0) g/dL Ur Leukocyte Esterase (Negative) Urine Bacteria (None) /hpf Urine Mucus (None) /hpf 10/05/17 Range/Units 06:59 RBC (3.80-5.40) m/uL Hgb (11.4-16.0) gm/dL Hct (34.0-46.0) % Plt Count (150-450) k/uL Glucose (74-99) mg/dL POC Glucose (mg/dL) 163 H (75-99) mg/dL Total Bilirubin (0.2-1.3) mg/dL AST (14-36) U/L Total Protein (6.3-8.2) g/dL Albumin (3.5-5.0) g/dL Ur Leukocyte Esterase (Negative) Urine Bacteria (None) /hpf Urine Mucus (None) /hpf Microbiology - Last 24 Hours (Table) 10/04/17 18:11 Urine Culture - Preliminary Urine,Voided Assessment and Plan Plan: Assessment: 1. Postop day #3 status post right total hip arthroplasty Plan: 1. Pain control, continue supportive oral medication 2. Continue work with physical therapy 3. Daily dressing changes/ice and elevate 4. GI and DVT prophylaxis, continue current medication 5. Encourage incentive spirometer 6. Medical recommendation 7. Discharge planning: Likely discharged home today Time with Patient: Less than 30
--- NOTE | 2017-10-05 09:11 | P.DS ---
Providers Date of admission: 10/02/17 08:10 Expected date of discharge: 10/05/17 Attending physician: Asim Oliver Consults: 10/02/17 12:06 Consult Physician Routine Consulting Provider: Robert Castle Consult Reason/Comments: Medical management Do you want consulting provider notified?: Yes Primary care physician: Yana Jeffries Osvaldo [facility] Course: Date of admission: 10/02/2017 Date of discharge: 10/05/2017 Admission diagnosis: Status post right total hip arthroplasty Discharge diagnosis: Same Attending physician: Dr. Oliver Surgical procedures: Right total hip arthroplasty Brief history: Patient is a 76-year-old female with a history of progressive primary right hip osteoarthritis. At this point patient has failed conservative treatment measures and has opted to proceed with a elective right total hip arthroplasty. Hospital course: Details of patient's surgery can be found in operative report. Patient tolerated the procedure well and was subsequently transported to orthopedic floor. Patient's orthopeidc and medical care was provided daily. Patient had daily laboratory tests performed for evaluation of overall blood counts. Patient had daily physical therapy to include strengthening range of motion as well as education with walker ambulation. Patient was treated with Lovenox for their postoperative DVT prophylaxis during their inpatient stay. Patient was noted to have a relatively uneventful postoperative course. Patient reported satisfactory pain control with oral pain medications by postoperative day 0. Patient showed satisfactory progress with physical therapy. Patient moved steadily through the program and had no difficulty meeting the goals by postoperative day 3. Given patient's otherwise satisfactory course and having met physical therapy goals, plan is to discharge patient home on postoperative day 3. Discharge condition/disposition: Patient will be discharged home in stable condition. Discharge medications: Instructions are given on resumption of patient's normal daily medications per primary care recommendation, in addition patient will be prescribed Bayamon 7.5 mg/325 mg, Prilosec 20 mg, aspirin 325 mg. Discharge instructions: 1. Wound care and infection precautions, keep incision dry and covered while showering, no lotions, creams, moisturizers. No soaking, tubs, pools, hottubs. Do not scrub over the incision. 2. Weight-bear as tolerated with walker / cane until follow-up. 3. Ice and elevate when necessary. Do not exceed 20 minutes per hour with ice pack. 4. Utilize compression sleeve until seen at first follow up appointment. 5. Visiting nursing care. 6. Home physical therapy. 7. Pain meds and anticoagulants per prescription. 8. Pain medication has potential to cause constipation. Increase oral fluid and fiber intake. Contact primary care provider if you have not had a bowel movement within 48 hours after discharge 9. No anti-inflammatory medication until discussed at first post operative visit, this including Motrin, Aleve, Mobic, Diclofenac. 10. Follow up in office at 2 weeks [address]op with Jorge A Way PA-C 11. Follow up with your primary care doctor 7-10 days after discharge. 12. Contact [facility] with any questions, . Procedures: Right total hip arthroplasty Patient Condition at Discharge: Good Plan - Discharge Summary New Discharge Prescriptions: New Aspirin 325 mg PO DAILY #30 tab Famotidine [Pepcid] 20 mg PO DAILY #30 tablet HYDROcodone/APAP 7.5-325MG [Bayamon 7.5] 1 - 2 each PO Q6HR PRN #60 tab PRN Reason: Pain No Action Clopidogrel [Plavix] 75 mg PO DAILY metFORMIN HCL [Glucophage] 500 mg PO TID Potassium Chloride [K-Tab] 10 meq PO DAILY Multivitamins, Thera [Multivitamin] 1 tab PO DAILY Cholecalciferol [Vitamin D3] 5,000 unit PO DAILY amLODIPine [Norvasc] 5 mg PO DAILY Montelukast [Singulair] 10 mg PO HS Atenolol [Tenormin] 12.5 mg PO QAM Etodolac [Lodine] 400 mg PO BID Atorvastatin [Lipitor] 40 mg PO HS Valsartan/Hydrochlorothiazide [Valsartan-Hctz 320-25 mg Tab] 1 tab PO QAM Gabapentin [Neurontin] 800 mg PO QID Discharge Medication List Clopidogrel [Plavix] 75 mg PO DAILY 01/07/14 [History] metFORMIN HCL [Glucophage] 500 mg PO TID 01/07/14 [History] Multivitamins, Thera [Multivitamin] 1 tab PO DAILY 04/28/14 [History] Potassium Chloride [K-Tab] 10 meq PO DAILY 04/28/14 [History] Atenolol [Tenormin] 12.5 mg PO QAM 09/22/17 [History] Atorvastatin [Lipitor] 40 mg PO HS 09/22/17 [History] Cholecalciferol [Vitamin D3] 5,000 unit PO DAILY 09/22/17 [History] Etodolac [Lodine] 400 mg PO BID 09/22/17 [History] Gabapentin [Neurontin] 800 mg PO QID 09/22/17 [History] Montelukast [Singulair] 10 mg PO HS 09/22/17 [History] Valsartan/Hydrochlorothiazide [Valsartan-Hctz 320-25 mg Tab] 1 tab PO QAM [History] amLODIPine [Norvasc] 5 mg PO DAILY 09/22/17 [History] Aspirin 325 mg PO DAILY #30 tab 10/05/17 [Rx] Famotidine [Pepcid] 20 mg PO DAILY #30 tablet 10/05/17 [Rx] HYDROcodone/APAP 7.5-325MG [Bayamon 7.5] 1 - 2 each PO Q6HR PRN #60 tab 10/05/17 [ Rx] Follow up Appointment(s)/Referral(s): [facility], [NON-STAFF] - Andrea Way PAC [PHYSICIAN BEARING PRESS MACHINE OPERATOR] - 2 Weeks Activity/Diet/Wound Care/Special Instructions: [facility] - [phone] - will deliver to bedside prior to discharge. Orthopedic Discharge Instructions: 1. Wound care and infection precautions, [keep incision dry and covered while showering], no lotions, creams, moisturizers. No soaking, pools, hot tubs. Do not scrub over incision. 2. Weight-bear [as tolerated] with walker / cane until follow-up. 3. Ice and elevate when necessary. Do not exceed 20 minutes per hour with ice pack. 4. Utilize compression sleeve until seen at first follow up appointment. 5. Visiting nursing care. 6. Home physical therapy. 7. Pain meds and anticoagulants per prescription. 8. Pain medication has potential to cause constipation. Increase oral fluid and fiber intake. Contact primary care provider if you have not had a bowel movement within 48 hours after discharge. 9. No anti-inflammatory medication until discussed at first post operative visit, this including Motrin, Aleve, Mobic, Diclofenac. 10. Follow up in office at [address] weeks [address] with Jorge A Way PA-C 11. Follow up with your primary care doctor 7-10 days after discharge. 12. Contact [facility] with any questions, . Discharge Disposition: HOME WITH HOME HEALTH SERVICES
[2017-10-05] MEDS: PSEUDOEPHEDRINE 30 MG TAB PO PRN (09:59)
[2017-10-05 11:32] LABS: Glucose,Whole Blood 137 mg/dL (75-99)
[2017-10-05] MEDS: MULTIVITAMINS, THERA 1 EACH TAB PO SCH (12:44)
[2017-10-05] MEDS: CHOLECALCIFEROL 1,000 UNIT TAB PO SCH (13:09)
[2017-10-05] MEDS ORDERED: HYDROmorphone 2 MG TAB PO PRN ×3 (13:39→13:43)
[2017-10-05 14:22] VITALS: BP 94/57; PULSE 76; RESP 18; TEMP 98.8
--- NOTE | 2017-10-05 23:45 | PN ---
PROGRESS NOTE DATE OF SERVICE: 10/05/2017 This 76-year-old woman who was admitted after right total knee joint arthroplasty has improved significantly. No chest pain. No palpitations. No cough. The patient has a fever, which is improving. EXAM: Alert oriented x3. Blood pressure 94/57, respiration 18, temperature 98.8, pulse ox 94% on room air. Conjunctivae normal. NECK: No jugular venous distention. CARDIOVASCULAR: S2, S2. [id number]: Diminished breath sounds in the bases. No rhonchi, no crackles. ABDOMEN: Soft. LEGS: Status post cyanosis. NERVOUS: No focal deficits. LABS: Hemoglobin 8.1, platelets 90. Total bilirubin is 1.4, AST 38. ASSESSMENT: 1. Status post right hip arthroplasty. 2. Fever, improved. 3. Diabetes type 2. 4. Anemia. 5. Hypertension. 6. Hyperlipidemia. 7. Anemia as expected. 8. Thrombocytopenia. 9. Relative hypotension. 10.History of degenerative joint disease. 11.History of rheumatoid arthritis. 12.History of asthma. 13.History of cholecystectomy. RECOMMENDATIONS AND DISCUSSION: I recommend to continue current medications, continue with symptomatic treatment. I recommend the patient to follow up with primary physician closely in the outpatient setting and repeat labs, otherwise repeat CBC. Further recommendations to follow. Discussed with staff. Followup with Dr. Riley in the outpatient setting. MMUVALDOL / FLORIAN: [id number] /
== END 2017-10-05 15:45 | disposition home health service (06) | DRG 470 ==
LOC: 2ORMAIN 10-02 08:10 → 3SUR 10-02 12:11
PROVIDERS: ADMIT Orthopaedic Surgery; ATTEND Orthopaedic Surgery
PROC: 0SR902A Replacement of Right Hip Joint with Metal on Polyethylene Synthetic Substitute, Uncemented, Open Approach (ICD-10-PCS; principal; 2017-10-02 10:25)
DX: M16.11 Unilateral primary osteoarthritis, right hip (principal); I95.9 Hypotension, unspecified; D69.6 Thrombocytopenia, unspecified; D64.9 Anemia, unspecified; E11.9 Type 2 diabetes mellitus without complications; M06.9 Rheumatoid arthritis, unspecified; E78.00 Pure hypercholesterolemia, unspecified; E78.5 Hyperlipidemia, unspecified; K21.9 Gastro-esophageal reflux disease without esophagitis; R50.9 Fever, unspecified; J45.909 Unspecified asthma, uncomplicated; R11.0 Nausea; I10 Essential (primary) hypertension; Z90.49 Acquired absence of other specified parts of digestive tract; Z79.899 Other long term (current) drug therapy; Z79.84 Long term (current) use of oral hypoglycemic drugs; Z88.1 Allergy status to other antibiotic agents; Z88.8 Allergy status to other drugs, medicaments and biological substances; Z86.73 Personal history of transient ischemic attack (TIA), and cerebral infarction without residual deficits; Z79.02 Long term (current) use of antithrombotics/antiplatelets; Z79.891 Long term (current) use of opiate analgesic; Z80.9 Family history of malignant neoplasm, unspecified
CPT/HCPCS: 36415; 71045; 73501; 80048; 80053; 81001; 83036; 85025; 86850; 86900; 86901; 87086; 87502; 88300

== ENCOUNTER → 2019-06-04 | Outpatient (CLI) | payer MEDICARE, OTHER ==
[2019-06-04 11:31] LABS: Appearance,Urine Clear (Clear); Bilirubin,Urine Negative (Negative); Blood,Urine Negative (Negative); Color,Urine Light Yellow; Glucose,Urine (UA) Negative (Negative); Ketones,Urine Negative (Negative); Leukocyte Esterase,Urine Trace (Negative); Mucus,Urine Rare /hpf; Nitrite,Urine Negative (Negative); Protein,Urine Negative (Negative); RBC,Urine 1 /hpf (0-5); Specific Gravity,Urine 1.008 (1.001-1.035); Squamous Epithelial Cell,Urine 1 /hpf (0-4); Urobilinogen,Urine <2.0 mg/dL (<2.0); WBC,Urine 1 /hpf (0-5)
[2019-06-04 11:33] LABS: ALT 28 U/L (9-52); AST 24 U/L (14-36); African American GFR (CKD) >90 (>60 ml/min/1.73 sqM); Albumin 4.5 g/dL (3.5-5.0); Alkaline Phosphatase 67 U/L (38-126); Anion Gap 8 mmol/L; Blood Urea Nitrogen 18 mg/dL (7-17); Calcium 9.9 mg/dL (8.4-10.2); Carbon Dioxide 30 mmol/L (22-30); Chloride 102 mmol/L (98-107); Glucose 159 mg/dL (74-99); Sodium 140 mmol/L (137-145); Total Bilirubin 1.4 mg/dL (0.2-1.3)
[2019-06-04 11:45] LABS: HCT 43.7 % (34.0-46.0); HGB 14.3 gm/dL (11.4-16.0); MCHC 32.8 g/dL (31.0-37.0); MCV 94.3 fL (80.0-100.0); Mean Platelet Volume 7.4; Platelet Count 145 k/uL (150-450); RBC 4.63 m/uL (3.80-5.40); RDW 13.1 % (11.5-15.5); WBC 5.1 k/uL (3.8-10.6)
[2019-06-04 12:14] LABS: INR 0.9 (<1.2); Partial Thromboplastin Time 22.3 sec (22.0-30.0)
== END | disposition home or self-care (01) ==
LOC: LABPAT 10:13
PROVIDERS: ATTEND Orthopaedic Surgery
DX: Z01.812 Encounter for preprocedural laboratory examination (principal); M16.12 Unilateral primary osteoarthritis, left hip; Z79.01 Long term (current) use of anticoagulants
CPT/HCPCS: 80053; 81001; 85027; 85610; 85730; 87070

== ENCOUNTER 2019-06-11 05:44 | Inpatient (IN) | payer MEDICARE, OTHER ==
[~2019-06-11 05:44] MED LIST: ACETAMINOPHEN TAB 500 MG TAB PO ONE; DEXAMETHASONE SOD PHOSPHATE 10 MG/ML 1 ML VIAL IV ONE; GABAPENTIN 300 MG CAP PO ONE; LACTATED RINGERS 1,000 ML IV SCH; LIDOCAINE 1% 20 ML VIAL (10MG/ML) FOR IV START INTRADERMA PRN; MELOXICAM 7.5 MG TAB PO ONE; MIDAZOLAM 2 MG/2 ML VIAL IV PRN; SCOPOLAMINE 1.5MG/72HR PATCH TRANSDERM ONE; TRANEXAMIC ACID 1,000 MG in SODIUM CHLORIDE 0.9% 100 ML IVPB ONE
[2019-06-11] MEDS ORDERED: ROPIVACAINE 246.25 MG, EPINEPHrine 0.5 MG, KETOROLAC 30 MG, cloNIDine HCL/PF 80 MCG, WA... MISCELLANE ONE ×5 (06:00)
[2019-06-11 06:40] LABS: Glucose,Whole Blood 195 mg/dL (75-99)
[2019-06-11] MEDS ORDERED: HYDROcodone/APAP 5-325MG 1 EACH TAB PO PRN (06:58)
[2019-06-11] MEDS ORDERED: HYDROmorphone 0.5 MG/0.5 ML SYRINGE IVP PRN ×3 (06:58)
[2019-06-11] MEDS ORDERED: DIAZEPAM 5 MG TAB PO PRN (06:58)
[2019-06-11] MEDS ORDERED: MAGNESIUM HYDROXIDE 2,400 MG/10 ML CUP PO PRN (06:58)
[2019-06-11] MEDS ORDERED: NALOXONE 0.4 MG/ML 1 ML VIAL IV PRN (06:58)
[2019-06-11] MEDS ORDERED: LACTATED RINGERS 1,000 ML IV ONE ×2 (08:47)
[2019-06-11] MEDS ORDERED: ASPIRIN 81 MG PO SCH (09:00)
--- NOTE | 2019-06-11 09:03 | P.OP ---
Date of Procedure: 06/11/19 Preoperative Diagnosis: Severe osteoarthritis left hip Postoperative Diagnosis: Severe osteoarthritis left hip Procedure(s) Performed: Left total hip arthroplasty with a direct anterior approach Implants: Cates and nephew Polarstem size 4 standard Cates & Nephew R3, 3 hole acetabular shell, 52 mm Cates [employer] Nephew reflection 6.5 mm cancellus screw, 20 mm 2, 25 mm Cates [employer] Nephew R3, XLPE 20 acetabular liner Cates & Nephew Oxinium femoral head 36 m, +0 All components were press-fit. The articulation is Oxinium on polyethylene. Anesthesia: GETA Surgeon: Woody Boateng Gas Charger #1: Loida [place] Estimated Blood Loss (ml): 750 (349 mL returned with Cell Saver) Pathology: other (Femoral head) Condition: stable Disposition: PACU Indications for Procedure: After failure of conservative treatment we discussed the surgical and nonsurgical treatment options at length. Patient wishes to proceed with a total hip arthroplasty with a direct anterior approach. Complications specific to this procedure were discussed at length, including but not limited to infection, leg length discrepancy, dislocation, and nerve injury. Patient is aware of all these complications and informed consent was obtained Operative Findings: The operative findings are consistent with severe osteoarthritis of the left hip Description of Procedure: Patient was seen and evaluated in the preoperative area, consent was reviewed, and the surgical site was marked with a skin marker. Patient was then brought to the operating room and given prophylactic antibiotics intravenously. 1 g of Tranexamic acid was also given. A general anesthetic was administered by the anesthesia department. The patient was then placed on the Larchwood table with the bony prominences well-padded. The hip area was then prepped and draped in usual sterile fashion. A universal timeout was then performed, which confirmed the patient's name, surgical site, ALLERGIES, and procedure being performed. Next the incision site was located at 1 cm distal and 1 cm lateral to the anterior superior iliac spine. The skin and subcutaneous tissues were sharply incised. Incision was carefully dissected down to the fascia overlying the tensor fascia florencia muscle. This fascia was then incised in line with the incision. Next, using blunt finger dissection, the tensor fascia florencia muscle was dissected off its investing fascia. The muscle was then carefully retracted laterally with a cobra retractor over the lateral neck of the femur. Next, the circumflex vessels were identified and cauterized using the AquaMantis device. The anterior hip capsule was then exposed. The capsule was then opened and an inverted T fashion. Cobra retractors were then placed intracapsularly. The proximal femur was then visualized. The femoral neck was then osteotomized appropriate level above the lesser trochanter. Small amount of traction was placed with the Larchwood table. A small wedge of bone was then removed from the remaining femoral head. Next, using a corkscrew femoral head was easily removed from the acetabulum. On gross visual inspection, the femoral head had complete loss of articular cartilage in multiple periarticular osteophytes. Attention was then turned to the acetabulum. the acetabulum was exposed and any remaining labrum was excised. Sequential reaming of the acetabulum was performed using fluoroscopic guidance. When the appropriate size was reached, a trial was then placed. The position and fit of the trial was checked with fluoroscopy. The trial was then removed. Then, usin g fluoroscopic guidance, the final implant was impacted at 20 of anteversion and 40 of abduction, and fully seated in the acetabulum. 2 screws were then placed in the acetabulum. Again fluoroscopy was used to check position of the screws. Next, the liner was then impacted, with a 20 elevated liner located in the anterior superior quadrant. Component locking was confirmed. Attention was then directed to the femur. With the aid of the Larchwood table, the femur was externally rotated to approximately 130, extended, and abducted under the opposite leg. A side hook was then placed under the proximal femur, and the side hook elevator was used to elevate the proximal femur. Retractors were then placed. A capsular release was performed, as well as a release of the conjoined tendon, which afforded excellent visualization of the proximal femur. Next, a box osteotome was used to lateralize the proximal femur. A drum handler was then used to locate the femoral canal. Sequential broaching was then performed with appropriate size which afforded excellent fixation in the proximal femur. A trial was then placed with appropriate head and neck, and the hip was gently reduced with the aid of the Larchwood table. Fluoroscopy was then used to check position of the components, as well as to ensure equal leg lengths. The hip was then gently dislocated and the trials were then removed. Final implants were then impacted and the hip was again reduced. Final fluoroscopic x-rays confirmed that the components were in anatomic position, as well as equal leg lengths. The hip was also taken through range of motion, and found to be stable. The hip was then copiously irrigated with antibiotic solution with pulsatile lavage. The hip was then irrigated with Irrisept solution. The soft tissues were then injected with a ropivacaine solution, which consisted of 246.25 mg of ropivacaine, 0.5 mg of epinephrine, 30 mg of Toradol, 80 g of clonidine, and 48.45 mL of sterile water, for a total of 100 mL of fluid injected. A second dose of 1 g of Tranexamic acid was also given. the fascia was then closed with 2-0 strata fix suture. The subcutaneous tissue was closed with 3-0 Vicryl. The subcuticular tissue was closed with 3-0 strata fix suture. The skin was then closed with Dermabond glue and a sterile silver dressing. The patient was then transferred to the recovery room in stable condition. The certified teacher assistant JENNY Courtney was required due to the complexity of surgery, and the need for skilled director medical surgical for positioning, draping, exposure, retraction, and closure of the wound.
--- NOTE | 2019-06-11 09:06 | FL ---
EXAMINATION TYPE: FL guidance operating room, XR Hip Limited LT DATE OF EXAM: 06/11/2019 CLINICAL HISTORY: Left hip pain and osteoarthritis TECHNIQUE: Fluoroscopy. COMPARISON: None. FINDINGS: Fluoroscopic guidance was provided during hip replacement procedure performed by Dr. Imtiaz gibbs. A total of 58 seconds of fluoroscopic time was utilized during the procedure and two spot intra operative images are acquired. Images acquired show metallic hardware from total left hip arthroplasty satisfactory in position on f rontal projection. There is surrounding lucency noted. There is incidental partial visualization of r ight hip arthroplastic changes. IMPRESSION: As Above.
[2019-06-11] MEDS: HYDROmorphone 0.5 MG/0.5 ML SYRINGE IVP PRN ×3 (09:28→09:48)
--- NOTE | 2019-06-11 09:31 | XR ---
EXAMINATION TYPE: XR Hip Limited LT DATE OF EXAM: 06/11/2019 CLINICAL HISTORY: Left hip pain and osteoarthritis. TECHNIQUE: Single AP portable view of left hip is obtained immediately postoperatively. COMPARISON: None. FINDINGS: Metallic hardware from total left hip arthroplasty is seen and appears satisfactory in alig nment and position. There is evidence of recent surgery with subcutaneous gas noted laterally. IMPRESSION: Metallic hardware from a left hip arthroplasty is satisfactory in position.
[2019-06-11 11:56] VITALS: BMI 25.9
[2019-06-11 12:08] LABS: Glucose,Whole Blood 251 mg/dL (75-99)
[2019-06-11] MEDS ORDERED: MONTELUKAST 10 MG TAB PO PRN (14:20)
[2019-06-11] MEDS: SODIUM CHLORIDE 0.9% 1,000 ML IV SCH ×2 (17:02→23:43)
[2019-06-11] MEDS: metFORMIN 500 MG TAB PO SCH (17:18)
[2019-06-11] MEDS: GABAPENTIN 400 MG CAP PO SCH ×2 (17:18→21:26)
[2019-06-11 17:23] LABS: Glucose,Whole Blood 230 mg/dL (75-99)
--- NOTE | 2019-06-11 20:17 | CONS ---
CONSULTATION DATE OF SERVICE: 06/11/2019. REASON FOR CONSULTATION: Advice regarding diabetes mellitus and other multiple medical issues, requested by Orthopedic Surgery. HISTORY OF PRESENT ILLNESS: This 78-year-old woman with a past medical history of multiple medical problems, including asthma, history of CVA, TIA, diabetes mellitus, hyperlipidemia, memory impairment, history of rheumatoid arthritis, CVA, being followed by Dr. Riley in the outpatient setting, underwent left total hip joint arthroplasty by Dr. Boateng. The patient tolerated the procedure well. There is no history of chest pain. No history of palpitations. No history of headache, loss of consciousness, nausea, vomiting, diarrhea, fever, rigor or chills at this time. PAST MEDICAL HISTORY: 1. Asthma. 2. CVA, TIA. 3. Diabetes mellitus. 4. Hypertension. 5. Hyperlipidemia. 6. Memory impairment. 7. DJD. 8. Rheumatoid arthritis. HOME MEDICATIONS: 1. Neurontin 800 mg p.o. t.i.d. 2. Vitamin D3 5000 daily. 3. Lipitor 40 mg at bedtime. 4. Glucophage 500 mg p.o. t.i.d. 5. Multivitamins one p.o. daily. 6. Singulair 10 mg at bedtime p.r.n. 7. Tenormin 12.5 mg each morning. 8. Aspirin 81 mg p.o. daily. 9. Plavix 75 mg p.o. daily. 10.Mobic 1 tablet p.o. daily. 11.Zestril 1 tablet p.o. daily. ALLERGIES: 1. REMICADE. 2. ZOFRAN. 3. ERYTHROMYCIN BASE. 4. ADHESIVES. FAMILY HISTORY: History of cancer, history of diabetes mellitus, type 2. SOCIAL HISTORY: History of occasional alcohol intake. No history of smoking. REVIEW OF SYSTEMS: ENT: Diminished hearing. Diminished vision. CARDIOVASCULAR SYSTEM: No angina, palpitations. RESPIRATORY SYSTEM: As mentioned earlier. GI: No nausea, vomiting. : No dysuria or retention. NERVOUS SYSTEM: No numbness, weakness. ALLERGY/IMMUNOLOGY: No asthma, hayfever. MUSCULOSKELETAL: As mentioned earlier. HEMATOLOGY/ONCOLOGY: No history of anemia. ENDOCRINE: Diabetes mellitus. CONSTITUTIONAL: As mentioned earlier. DERMATOLOGY: Negative. RHEUMATOLOGY: Negative. PSYCHIATRY: As mentioned earlier. PHYSICAL EXAMINATION: Patient alert and oriented x3. Pulse 65, blood pressure 108/47, respiration 17, temperature 98.2, pulse ox 94% on room air. HEENT: Conjunctivae normal. Oral mucosa moist. NECK: No jugular venous distention. No carotid bruit. No lymph node enlargement. CARDIOVASCULAR SYSTEM: S1, S2 muffled. No S3. No S4. RESPIRATORY SYSTEM: Breath sounds diminished at the bases. No rhonchi. No crackles. ABDOMEN: Soft, non-tender. No mass palpable. LEGS: Status post left total hip joint arthroplasty. NERVOUS SYSTEM: Higher functions as mentioned earlier. Moves all 4 limbs. No focal motor or sensory deficit. LYMPHATICS: No lymph node palpable in neck, axillae or groin. SKIN: No ulcer, rash, bleeding. JOINTS: No active deforming arthropathy. LABS: Accu-Cheks are 195, 251. ASSESSMENT: 1. Status post left total hip joint arthroplasty. 2. Diabetes mellitus, type 2. 3. History of cerebrovascular accident, transient ischemic attack. 4. History of asthma. 5. Hypertension. 6. Hyperlipidemia. 7. History of memory impairment. 8. History of degenerative joint disease. 9. History rheumatoid arthritis. 10.History of arrhythmia. 11.History of cholecystectomy. RECOMMENDATIONS AND DISCUSSION: In this 78-year-old woman who presented with multiple complex medical issues, we will monitor the patient closely, continue the current medications, continue symptomatic treatment. Will initiate home medications. Accu-Cheks before meals and at bedtime. Monitor blood sugars closely. DVT prophylaxis. Incentive spirometry. Proton pump inhibitors. We will follow the patient closely with you. The patient may be asked to follow up with a primary physician closely after discharge. Plavix and aspirin may be started when okay with Orthopedic Surgery. Thank you, Dr. Boateng, for letting us participate in the care of this patient. MMODL / IJN: [id number] /
[2019-06-11 20:44] LABS: Glucose,Whole Blood 214 mg/dL (75-99)
[2019-06-11] MEDS ORDERED: SENNOSIDES-DOCUSATE SODIUM 1 EACH TAB PO SCH (21:00)
[2019-06-11] MEDS ORDERED: ATORVASTATIN 40 MG TAB PO SCH (21:00)
[2019-06-11] MEDS: HYDROcodone/APAP 5-325MG 1 EACH TAB PO PRN (21:27)
[2019-06-12 07:18] LABS: Glucose,Whole Blood 155 mg/dL (75-99)
[2019-06-12] MEDS: HYDROcodone/APAP 5-325MG 1 EACH TAB PO PRN (07:31)
[2019-06-12] MEDS: metFORMIN 500 MG TAB PO SCH (07:32)
[2019-06-12] MEDS: GABAPENTIN 400 MG CAP PO SCH (07:32)
[2019-06-12 08:19] VITALS: BP 111/70; PULSE 69; RESP 15; TEMP 98.9
--- NOTE | 2019-06-12 08:40 | P.DS ---
Providers Date of admission: 06/11/19 05:44 Expected date of discharge: 06/12/19 Attending physician: Woody Boateng Consults: 06/11/19 06:58 Consult Physician Routine Consulting Provider: Robert Castle Consult Reason/Comments: medical management and anticoagulation Do you want consulting provider notified?: Yes Primary care physician: Yana Riley - Discharge Diagnosis(es) (1) Osteoarthritis of left hip Current Visit: Yes Status: Acute (2) S/P total hip arthroplasty Current Visit: Yes Status: Acute Hospital Course: This is a 78-year-old female with known history of degenerative arthritis of the left hip. The patient presents for evaluation. After discussion and consideration patient elects to proceed with total hip arthroplasty. The patient is seen preoperatively by Dr. Boateng and medically cleared for surgery by their primary care physician. Patient is admitted to [facility] on 06/11/2019 for total hip arthroplasty. The procedures performed without complication or sequelae. The patient is doing well postoperatively. Labs and vital signs are stable on day of discharge. On day of discharge patient's hip incision is healing well. There is minimal erythema. There is no drainage noted at this time. There is minimal soft tissue swelling to the hip and thigh. Patient has full foot and ankle motion without difficulty or pain. Calf is soft and nontender to palpation. Neurovascular status to the left lower extremity is intact. Patient is discharged home in good condition. Opioid start talking form is reviewed and signed at patient bedside. Patient has resumed Plavix postoperatively. Recommend aspirin 81 mg twice daily along with Plavix for DVT prophylaxis. Patient states that she has these prescriptions at home. Please see med rec for accurate list of home medications. Plan - Discharge Summary Discharge Rx Participant: No New Discharge Prescriptions: New HYDROcodone/APAP 5-325MG [[place] 5-325] 1 - 2 tab PO Q6HR PRN #56 tab PRN Reason: Pain Sennosides [Senokot] 1 tab PO BID #60 tablet No Action Clopidogrel [Plavix] 75 mg PO DAILY metFORMIN HCL [Glucophage] 500 mg PO TID Multivitamins, Thera [Multivitamin (formulary)] 1 tab PO DAILY Cholecalciferol [Vitamin D3 (25 Mcg = 1000 Iu)] 5,000 unit PO DAILY Montelukast [Singulair] 10 mg PO HS PRN PRN Reason: allergies Atenolol [Tenormin] 12.5 mg PO QAM Atorvastatin [Lipitor] 40 mg PO HS Gabapentin [Neurontin] 800 mg PO TID Aspirin 81 mg PO DAILY Mobic(Unknown Dose) 1 tab PO DAILY Lisinopril [Zestril] 1 tab PO DAILY Discharge Medication List Clopidogrel [Plavix] 75 mg PO DAILY 01/07/14 [History] metFORMIN HCL [Glucophage] 500 mg PO TID 01/07/14 [History] Multivitamins, Thera [Multivitamin (formulary)] 1 tab PO DAILY 04/28/14 [History] Atenolol [Tenormin] 12.5 mg PO QAM 09/22/17 [History] Atorvastatin [Lipitor] 40 mg PO HS 09/22/17 [History] Cholecalciferol [Vitamin D3 (25 Mcg = 1000 Iu)] 5,000 unit PO DAILY 09/22/17 [History] Gabapentin [Neurontin] 800 mg PO TID 09/22/17 [History] Montelukast [Singulair] 10 mg PO HS PRN 09/22/17 [History] Aspirin 81 mg PO DAILY 06/05/19 [History] Mobic(Unknown Dose) 1 tab PO DAILY 06/05/19 [History] Lisinopril [Zestril] 1 tab PO DAILY 06/11/19 [History] HYDROcodone/APAP 5-325MG [Athol 5-325] 1 - 2 tab PO Q6HR PRN #56 tab 06/12/19 [Rx] Sennosides [Senokot] 1 tab PO BID #60 tablet 06/12/19 [Rx] Follow up Appointment(s)/Referral(s): Woody Boateng DO [Doctor of Osteopathic Medicine] - 2 Weeks Activity/Diet/Wound Care/Special Instructions: Weightbearing as tolerated with walker. Leave dressing intact. Dressing may be removed by home care nurse or by patient in 10 days. May shower with dressing on. Continue Plavix daily. Recommend aspirin 81 mg twice daily for 30 days for DVT prophylaxis. Recommend use of compression stockings daily for at least 2 weeks during the day to help prevent swelling and blood clots. May remove at night before sleeping. [facility] with [facility] 2 weeks and call with any questions or concerns, . Discharge Disposition: HOME WITH HOME HEALTH SERVICES
[2019-06-12 08:42] LABS: Chloride 105 mmol/L (98-107); Glucose 151 mg/dL (74-99)
[2019-06-12 08:43] LABS: African American GFR (CKD) >90 (>60 ml/min/1.73 sqM); Anion Gap 5 mmol/L; Blood Urea Nitrogen 13 mg/dL (7-17); Calcium 8.4 mg/dL (8.4-10.2); Carbon Dioxide 29 mmol/L (22-30); Potassium 4.2 mmol/L (3.5-5.1); Sodium 139 mmol/L (137-145)
[2019-06-12 08:49] LABS: Basophils % (A) 1 %; Eosinophils # (A) 0.1 k/uL (0-0.7); Eosinophils % (A) 1 %; HCT 31.5 % (34.0-46.0); Lymphocytes # (A) 1.2 k/uL (1.0-4.8); Lymphocytes % (A) 22 %; MCH 31.7 pg (25.0-35.0); MCHC 33.7 g/dL (31.0-37.0); Mean Platelet Volume 8.1; Monocytes # (A) 0.5 k/uL (0-1.0); Monocytes % (A) 9 %; Neutrophils # (A) 3.7 k/uL (1.3-7.7); Neutrophils % (A) 66 %; Platelet Count 102 k/uL (150-450); RBC 3.35 m/uL (3.80-5.40); RDW 13.2 % (11.5-15.5); WBC 5.6 k/uL (3.8-10.6)
[2019-06-12 08:51] LABS: HGB 10.6 gm/dL (11.4-16.0)
[2019-06-12] MEDS ORDERED: ASPIRIN 81 MG PO SCH ×2 (09:00)
[2019-06-12] MEDS ORDERED: MULTIVITAMINS, THERA 1 EACH TAB PO SCH (09:00)
[2019-06-12] MEDS ORDERED: LISINOPRIL 2.5 MG TAB PO SCH (09:00)
[2019-06-12] MEDS ORDERED: CLOPIDOGREL 75 MG TAB PO SCH ×2 (09:00)
[2019-06-12] MEDS ORDERED: ATENOLOL 12.5 MG TAB PO SCH (09:00)
[2019-06-12] MEDS ORDERED: CHOLECALCIFEROL 1,000 UNIT TAB PO SCH (09:00)
[2019-06-12 12:19] LABS: Glucose,Whole Blood 163 mg/dL (75-99)
--- NOTE | 2019-06-12 20:14 | PN ---
PROGRESS NOTE DATE OF SERVICE: 06/12/2019 This 78-year-old woman who was admitted after left total hip joint arthroplasty is improving significantly. No chest pain. No palpitations. No fever. PHYSICAL EXAMINATION: Alert and oriented x3. Pulse 69, blood pressure 111/70, respiration 15, temperature 98.9, pulse ox 98% on room air. HEENT: Conjunctivae normal. NECK: No jugular venous distention. CARDIOVASCULAR SYSTEM: S1, S2 muffled. RESPIRATORY SYSTEM: Breath sounds diminished at the bases. No rhonchi. No crackles. ABDOMEN: Soft. LEGS: Status post hip arthroplasty. NERVOUS SYSTEM: No focal deficit. LABS: WBC 5.6, hemoglobin 10.6, platelets 102. ASSESSMENT: 1. Status post left total hip joint arthroplasty. 2. Diabetes mellitus, type 2. 3. History of cerebrovascular accident, transient ischemic attack. 4. History of asthma. 5. Hypertension. 6. Hyperlipidemia. 7. History of memory impairment. 8. History of degenerative joint disease. 9. History of rheumatoid arthritis. 10.History of arrhythmia. 11.History of cholecystectomy. 12.Mild thrombocytopenia, likely chronic, per history. RECOMMENDATIONS AND DISCUSSION: I recommend to continue current medications, continue with the monitoring, symptomatic treatment. Resume the home medications and closely follow with the primary physician in the outpatient setting. Repeat CBC. I recommend CBC with Dr. Riley. Continue to monitor. Further recommendations to follow. MMODL / IJN: [id number] /
== END 2019-06-12 13:44 | disposition home health service (06) | DRG 470 ==
LOC: 2ORMAIN 05:44 → 4SSUR 09:31
PROVIDERS: ADMIT Orthopaedic Surgery; ATTEND Orthopaedic Surgery
PROC: 0SRB06A Replacement of Left Hip Joint with Oxidized Zirconium on Polyethylene Synthetic Substitute, Uncemented, Open Approach (ICD-10-PCS; principal; 2019-06-11 07:00)
DX: M16.12 Unilateral primary osteoarthritis, left hip (principal); D69.6 Thrombocytopenia, unspecified; E11.9 Type 2 diabetes mellitus without complications; E78.5 Hyperlipidemia, unspecified; I10 Essential (primary) hypertension; J45.909 Unspecified asthma, uncomplicated; M06.9 Rheumatoid arthritis, unspecified; Z79.02 Long term (current) use of antithrombotics/antiplatelets; Z79.82 Long term (current) use of aspirin; Z79.84 Long term (current) use of oral hypoglycemic drugs; Z79.899 Other long term (current) drug therapy; Z83.3 Family history of diabetes mellitus; Z86.73 Personal history of transient ischemic attack (TIA), and cerebral infarction without residual deficits; Z90.49 Acquired absence of other specified parts of digestive tract; I49.9 Cardiac arrhythmia, unspecified; R41.3 Other amnesia; Z88.1 Allergy status to other antibiotic agents; Z88.8 Allergy status to other drugs, medicaments and biological substances; Z79.1 Long term (current) use of non-steroidal anti-inflammatories (NSAID)
CPT/HCPCS: 73501; 80048; 85025; 86850; 86891; 86900; 86901; 88300

== ENCOUNTER → 2023-06-06 | Outpatient (CLI) | payer MEDICARE, OTHER ==
--- NOTE | 2023-06-06 15:57 | CT ---
EXAMINATION TYPE: CT lumbar spine wo con DATE OF EXAM: 06/06/2023 COMPARISON: None HISTORY: Low back pain, arthritis, frequent falls. CT DLP: 578.8 mGycm CONTRAST: None TECHNIQUE: CT of the lumbar spine is performed on a spiral scan at 3 mm thick sections. Reconstructed images are performed in the coronal and sagittal planes. FINDINGS: There is scoliosis through the lumbar spine. There is loss of disc height L5-S1. Vacuum dis c phenomenon is present L2-3 through L5-S1. Grade 1 spondylolisthesis of L4 anterior on L5 is evident . T10-T11: Facet hypertrophy is present. Correlate for left radicular symptoms. T11-12: No focal disc herniation or significant disc bulge. T12-L1: There is a large central disc herniation with moderate anterior thecal sac compression. L1-L2: No focal disc herniation or significant disc bulge is evident. No spinal canal stenosis or n eural foraminal stenosis is present L2-L3: Broad-based disc bulge has mild anterior thecal sac compression. Facet hypertrophy and ligamen barbara flavum laxity are present. Some spinal canal stenosis is present at this level. Moderate to sever e bilateral foraminal stenosis is present L3-L4: Mild disc bulge is present with anterior thecal sac flattening. Facet hypertrophy and ligament um flavum laxity are present contributing to spinal canal stenosis. Moderate to severe bilateral fora aj narrowing is present. L4-L5: Disc uncovering is evident. Facet hypertrophy and ligamentum flavum laxity are present. Severe spinal canal stenosis is present. Moderate right and severe left foraminal stenosis. L5-S1: No focal disc herniation or significant disc bulge is evident. No spinal canal stenosis or n eural foraminal stenosis is present IMPRESSION: 1. Large disc herniation T12-L1 with moderate anterior thecal sac compression and no stenosis. 2. Broad-based disc bulge with mild anterior thecal sac compression L2-3. Some spinal canal stenosis is present with facet hypertrophy and ligamentum flavum laxity. 3. Spinal canal stenosis L3-4 secondary to facet hypertrophy of ligamentum flavum laxity and mild dis c bulging. 4. Severe spinal canal stenosis secondary to facet hypertrophy ligamentum flavum laxity and disc unco vering. 5. Grade 1 spondylolisthesis of L4 anteriorly on L5. 6. Moderate to severe foraminal stenosis discussed above
== END | disposition home or self-care (01) ==
LOC: RADCTMAIN 14:59
PROVIDERS: ATTEND Orthopaedic Surgery Orthopaedic Surgery of the Spine
DX: M47.27 Other spondylosis with radiculopathy, lumbosacral region (principal); M43.16 Spondylolisthesis, lumbar region; M41.86 Other forms of scoliosis, lumbar region; M51.16 Intervertebral disc disorders with radiculopathy, lumbar region; M79.12 Myalgia of auxiliary muscles, head and neck; M25.78 Osteophyte, vertebrae; M47.22 Other spondylosis with radiculopathy, cervical region; M50.122 Cervical disc disorder at C5-C6 level with radiculopathy; M51.15 Intervertebral disc disorders with radiculopathy, thoracolumbar region; M50.123 Cervical disc disorder at C6-C7 level with radiculopathy; M48.061 Spinal stenosis, lumbar region without neurogenic claudication; M99.73 Connective tissue and disc stenosis of intervertebral foramina of lumbar region; M24.28 Disorder of ligament, vertebrae; R53.1 Weakness; R26.9 Unspecified abnormalities of gait and mobility
CPT/HCPCS: 72131

== ENCOUNTER → 2024-05-30 | Outpatient (CLI) | payer MEDICARE, OTHER ==
--- NOTE | 2024-05-30 13:11 | XR ---
Right foot. HISTORY: Second toe pain. COMPARISON: None. TECHNIQUE: 3 views of the right foot were obtained. FINDINGS: There are no destructive changes involving the osseous structures of the right toe. There is no corti calvin disruption or periosteal reaction. There is moderate hallux valgus deformity and marked osteoarthritis of the first MTP joint. There is a large plantar calcaneal spur. There is no soft tissue gas or radiopaque foreign body. IMPRESSION: 1. No osseous abnormality of the second toe of the right foot. 2. Marked osteoarthritis of the first MTP joint and hallux valgus deformity. 3. No acute fracture or dislocation. 4. marked plantar calcaneal spur [facility], , 05/30/2024 1:08 PM
== END | disposition home or self-care (01) ==
LOC: RADXRMAIN 10:55
PROVIDERS: ATTEND Podiatrist Primary Podiatric Medicine

== ENCOUNTER 2024-06-25 14:06 | Observation (INO) | payer MEDICARE, OTHER ==
--- NOTE | 2024-06-25 14:09 | ED ---
Syncope HPI - General Stated Complaint: Syncope Time Seen by Provider: 06/25/24 14:08 Source: RN notes reviewed, old records reviewed Mode of arrival: ambulatory Limitations: no limitations - History of Present Illness Initial Comments: This is an 83-year-old female from primary care's office for elevated heart rate atrial fibrillation with RVR. Significant. Patient has persistent and significantly elevated heart rate here in the emergency department, lightheadedness and dizziness but no shortness of breath no chest pain, patient was unaware that she had a syncopal event but is comes to the ER by EMS has history of A-fib on Janett OLIVEIRA Complaint: loss of consciousness -: minutes(s) Prodromal Symptoms: lightheaded -: second(s) Witnessed: yes - by bystander Injuries Sustained Associated with Event: None Current Symptoms: lightheaded History: previous syncopal episode, other (History of atrial fibrillation) Context: at rest Treatments Prior to Arrival: none - Related Data Home Medications Medication Instructions Recorded Confirmed Aspirin 81 mg PO DAILY 06/05/19 06/11/19 Apixaban [Eliquis] 2.5 mg PO BID 06/25/24 06/25/24 Empagliflozin [Jardiance] 10 mg PO DAILY 06/25/24 06/25/24 Insulin Aspart [NovoLOG Flexpen] 3 units SQ AC-TID 06/25/24 06/25/24 Insulin Glargine,Hum.rec.anlog 15 units SQ HS 06/25/24 06/25/24 [Lantus Solostar Pen] Metoprolol Succinate (ER) [Toprol 50 mg PO DAILY 06/25/24 06/25/24 Xl] Omeprazole 20 mg PO HS 06/25/24 06/25/24 Pregabalin [Lyrica] 100 mg PO BID 06/25/24 06/25/24 Sarilumab [Kevzara] 200 mg IV Q14D 06/25/24 06/25/24 amLODIPine [Norvasc] 5 mg PO HS 06/25/24 06/25/24 lisinopriL [Zestril] 10 mg PO DAILY 06/25/24 06/25/24 metFORMIN HCL ER [Glucophage XR] 1,000 mg PO BID 06/25/24 06/25/24 predniSONE 17.5 mg PO DAILY 06/25/24 06/25/24 Allergies Allergy/AdvReac Type Severity Reaction Status Date / Time infliximab [From Remicade] Allergy Severe Anaphylaxis Verified 06/25/24 16:24 ondansetron HCl [From Zofran] Allergy Severe Vomiting, Verified 06/25/24 16:24 red streak up arm with IV administration erythromycin base Allergy hives Verified 06/25/24 16:24 [Erythromycin Base] adhesive AdvReac red, itchy Verified 06/25/24 16:24 skin Review of Systems ROS Statement: Those systems with pertinent positive or pertinent negative responses have been documented in the HPI. ROS Other: All systems not noted in ROS Statement are negative. 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, hx migraines, History of Any Multi-Drug Resistant Organisms: None Reported Past Surgical History: Cholecystectomy, Hysterectomy, Joint Replacement, Orthopedic Surgery, Tonsillectomy Additional Past Surgical History / Comment(s): cataracts, lopez knee arthroscopy, rt thumb joint replacement, left knee replacement, lopez shoulder rotator cuff, lopez capral bunnel, lopez bunionectomy Past Anesthesia/Blood Transfusion Reactions: No Reported Reaction Past Psychological History: No Psychological Hx Reported Past Alcohol Use History: Occasional Past Drug Use History: None Reported - Past Family History Mother Family Medical History: Cancer Son(s) Family Medical History: Diabetes Mellitus Additional Family Medical History / Comment(s): son passed from complications diabetes General Exam General appearance: alert, in no apparent distress Head exam: Present: atraumatic, normocephalic, normal inspection Eye exam: Present: normal appearance, PERRL, EOMI. Absent: scleral icterus, conjunctival injection, periorbital swelling ENT exam: Present: normal exam, mucous membranes moist Neck exam: Present: normal inspection. Absent: tenderness, meningismus, lymphadenopathy Respiratory exam: Present: normal lung sounds bilaterally. Absent: respiratory distress, wheezes, rales, rhonchi, stridor Cardiovascular Exam: Present: regular rate, normal rhythm, normal heart sounds. Absent: systolic murmur, diastolic murmur, rubs, gallop, clicks GI/Abdominal exam: Present: soft, normal bowel sounds. Absent: distended, tenderness, guarding, rebound, rigid Extremities exam: Present: normal inspection, full ROM, normal capillary refill. Absent: tenderness, pedal edema, joint swelling, calf tenderness Back exam: Present: normal inspection Neurological exam: Present: alert, oriented X3, CN II-XII intact Psychiatric exam: Present: normal affect, normal mood Skin exam: Present: warm, dry, intact, normal color. Absent: rash Course Vital Signs 06/25/24 14:07 Temperature 98.0 F Pulse Rate 108 H Respiratory 18 Rate Blood Pressure 135/67 O2 Sat by Pulse 98 Oximetry - Reevaluation(s) Reevaluation #1: 06/25/24 14:09 Medical records reviewed Reevaluation #2: 06/25/24 16:33 Patient has significant elevated heart rate throughout ER stay Reevaluation #3: 06/25/24 16:33 Patient informed of results questions answered Reevaluation #4: Was pt. sent in by a medical professional or institution (, PA, BUHR DRESSER, urgent care, hospital, or senior care...) When possible be specific @ -no Did you speak to anyone other than the patient for history (EMS, parent, family, police, friend...)? What history was obtained from this source @ -no Did you review nursing and triage notes (agree or disagree)? Why? @ -agree Are old charts reviewed (outside hosp., previous admission, EMS record, old EKG, old radiological studies, urgent care reports/EKG's, senior care records)? Report findings @ -yes Differential Diagnosis (chest pain, altered mental status, abdominal pain women, abdominal pain men, vaginal bleeding, weakness, fever, dyspnea, syncope, headache, dizziness, GI bleed, back pain, seizure, CVA, palpatations, mental h ealth, musculoskeletal)? @ -prior EKG interpreted by me (3pts min.). @ -yes X-rays interpreted by me (1pt min.). @ -yes negative for acute disease CT interpreted by me (1pt min.). @ -no U/S interpreted by me (1pt. min.). @ -no What testing was considered but not performed or refused? (CT, X-rays, U/S, labs)? Why? @ -none What meds were considered but not given or refused? Why? @ -none Did you discuss the management of the patient with other professionals (professionals i.e. , PA, [employer] DRESSER, lab, RT, psych nurse, social worker aide, salesperson men's hats, teacher, chief commercial officer, pillowcase turner)? Give summary @ -no Was smoking cessation discussed for >3mins.? @ -no Was critical care preformed (if so, how long)? @ -no Were there social determinants of health that impacted care today? How? (Homelessness, low income, unemployed, alcoholism, drug addiction, transportation, low edu. Level, literacy, decrease access to med. care, alf, rehab)? @ -none Was there de-escalation of care discussed even if they declined (Discuss DNR or withdrawal of care, Hospice)? DNR status @ -no What co-morbidities impacted this encounter? (DM, HTN, Smoking, COPD, CAD, Cancer, CVA, ARF, Chemo, Hep., AIDS, mental health diagnosis, sleep apnea, morbid obesity)? @ -none Was patient admitted / discharged? Hospital course, mention meds given and route, prescriptions, significant lab abnormalities, going to OR and other p ertinent info. @ - Undiagnosed new problem with uncertain prognosis? @ -no Drug Therapy requiring intensive monitoring for toxicity (Heparin, Nitro, Insulin, Cardizem)? @ -no Were any procedures done? @ -no Diagnosis/symptom? @ - Acute, or Chronic, or Acute on Chronic? @ -Acute Uncomplicated (without systemic symptoms) or Complicated (systemic symptoms)? @ -Complicated Side effects of treatment? @ -no Exacerbation, Progression, or Severe Exacerbation? @ -exacerbation Poses a threat to life or bodily function? How? (Chest pain, [place], [place], pneumonia, PE, COPD, DKA, ARF, appy, cholecystitis, CVA, Diverticulitis, Homicidal, Suicidal, threat to staff... and all critical care pts) @ -yes Reevaluation #5: Differential Syncope: Valvular disease, hypertrophic cardiomyopathy, pulmonary embolism, tamponade, tachycardia, bradycardia, [place], hypovolemia, hemorrhage, dissection, anemia, intracranial hemorrhage, seizure, hypoglycemia, carbon monoxide poisoning, this is not meant to be an all-inclusive list. - Consultations Consultation #1: Spoke with [facility] who agrees to admit this patient EKG Findings - EKG Comments: EKG Findings:: EKG is A-fib 133 QRS 85 QTc 378 - EKG Results: EKG: interpreted by SIRENA Medical Decision Making - Medical Decision Making 83 female to ER with a syncopal event and atrial fibrillation with RVR, patient will be admitted for cardiology evaluation and treatment - Lab Data Result diagrams: 06/25/24 14:16 06/25/24 14:16 Lab Results 06/25/24 06/25/24 06/25/24 Range/Units 14:16 14:16 14:16 WBC 3.7 L (3.8-10.6) k/uL RBC 4.08 (3.80-5.40) m/uL Hgb 13.0 (11.4-16.0) gm/dL Hct 40.0 (34.0-46.0) % MCV 98.0 (80.0-100.0) fL MCH 31.9 (25.0-35.0) pg MCHC 32.5 (31.0-37.0) g/dL RDW 13.6 (11.5-15.5) % Plt Count 119 L (150-450) k/uL MPV 9.0 Neutrophils % 41 % Lymphocytes % 46 % Monocytes % 9 % Eosinophils % 1 % Basophils % 1 % Neutrophils # 1.5 (1.3-7.7) k/uL Lymphocytes # 1.7 (1.0-4.8) k/uL Monocytes # 0.3 (0-1.0) k/uL Eosinophils # 0.0 (0-0.7) k/uL Basophils # 0.0 (0-0.2) k/uL Hypochromasia Slight PT 11.2 (10.0-12.5) sec INR 1.0 (<1.2) APTT 20.2 L (22.0-30.0) sec D-Dimer 0.61 H (<0.60) mg/L FEU Sodium 135 L (137-145) mmol/L Potassium 4.6 (3.5-5.1) mmol/L Chloride 111 H (98-107) mmol/L Carbon Dioxide 19 L (22-30) mmol/L Anion Gap 5 mmol/L BUN 28 H (7-17) mg/dL Creatinine 0.72 (0.52-1.04) mg/dL Est GFR (CKD-EPI)AfAm >90 (>60 ml/min/1.73 sqM) Est GFR (CKD-EPI)NonAf 79 (>60 ml/min/1.73 sqM) Glucose 91 (74-99) mg/dL Calcium 7.5 L (8.4-10.2) mg/dL Magnesium 1.8 (1.6-2.3) mg/dL Total Bilirubin 1.2 (0.2-1.3) mg/dL AST 33 (14-36) U/L ALT 20 (4-34) U/L Alkaline Phosphatase 33 L (38-126) U/L Troponin I (0.000-0.034) ng/mL Total Protein 4.8 L (6.3-8.2) g/dL Albumin 2.7 L (3.5-5.0) g/dL 06/25/24 Range/Units 14:16 WBC (3.8-10.6) k/uL RBC (3.80-5.40) m/uL Hgb (11.4-16.0) gm/dL Hct (34.0-46.0) % MCV (80.0-100.0) fL MCH (25.0-35.0) pg MCHC (31.0-37.0) g/dL RDW (11.5-15.5) % Plt Count (150-450) k/uL MPV Neutrophils % % Lymphocytes % % Monocytes % % Eosinophils % % Basophils % % Neutrophils # (1.3-7.7) k/uL Lymphocytes # (1.0-4.8) k/uL Monocytes # (0-1.0) k/uL Eosinophils # (0-0.7) k/uL Basophils # (0-0.2) k/uL Hypochromasia PT (10.0-12.5) sec INR (<1.2) APTT (22.0-30.0) sec D-Dimer (<0.60) mg/L FEU Sodium (137-145) mmol/L Potassium (3.5-5.1) mmol/L Chloride (98-107) mmol/L Carbon Dioxide (22-30) mmol/L Anion Gap mmol/L BUN (7-17) mg/dL Creatinine (0.52-1.04) mg/dL Est GFR (CKD-EPI)AfAm (>60 ml/min/1.73 sqM) Est GFR (CKD-EPI)NonAf (>60 ml/min/1.73 sqM) Glucose (74-99) mg/dL Calcium (8.4-10.2) mg/dL Magnesium (1.6-2.3) mg/dL Total Bilirubin (0.2-1.3) mg/dL AST (14-36) U/L ALT (4-34) U/L Alkaline Phosphatase (38-126) U/L Troponin I 0.025 (0.000-0.034) ng/mL Total Protein (6.3-8.2) g/dL Albumin (3.5-5.0) g/dL - EKG Data -: EKG Interpreted by Me Critical Care Time Critical Care Time: Yes Total Critical Care Time: 31 Disposition Clinical Impression: Dehydration, Syncope, Atrial fibrillation with rapid ventricular response Disposition: ADMITTED IP TO THIS [facility] Condition: Serious Is patient prescribed a controlled substance at d/c from ED?: No Referrals: Yana Riley III, MD [Primary Care Provider] - 1-2 days Time of Disposition: 16:00
[2024-06-25 14:27] LABS: Basophils % (A) 1 %; Eosinophils % (A) 1 %; Hypochromasia Slight; Lymphocytes # (A) 1.7 k/uL (1.0-4.8); Lymphocytes % (A) 46 %; MCH 31.9 pg (25.0-35.0); MCHC 32.5 g/dL (31.0-37.0); Monocytes # (A) 0.3 k/uL (0-1.0); Monocytes % (A) 9 %; Neutrophils # (A) 1.5 k/uL (1.3-7.7); Neutrophils % (A) 41 %; Platelet Count 119 k/uL (150-450); RBC 4.08 m/uL (3.80-5.40); RDW 13.6 % (11.5-15.5); WBC 3.7 k/uL (3.8-10.6)
[2024-06-25 14:39] LABS: ALT 20 U/L (4-34); African American GFR (CKD) >90 (>60 ml/min/1.73 sqM); Anion Gap 5 mmol/L; Blood Urea Nitrogen 28 mg/dL (7-17); Calcium 7.5 mg/dL (8.4-10.2); Carbon Dioxide 19 mmol/L (22-30); Chloride 111 mmol/L (98-107); Glucose 91 mg/dL (74-99); Non-African American GFR(CKD) 79 (>60 ml/min/1.73 sqM); Sodium 135 mmol/L (137-145)
[2024-06-25 14:43] LABS: AST 33 U/L (14-36); Albumin 2.7 g/dL (3.5-5.0); Alkaline Phosphatase 33 U/L (38-126); Magnesium 1.8 mg/dL (1.6-2.3); Potassium 4.6 mmol/L (3.5-5.1); Total Bilirubin 1.2 mg/dL (0.2-1.3); Total Protein 4.8 g/dL (6.3-8.2)
[2024-06-25 15:02] LABS: Prothrombin Time 11.2 sec (10.0-12.5)
[2024-06-25 15:18] LABS: Partial Thromboplastin Time 20.2 sec (22.0-30.0)
[2024-06-25] MEDS: SODIUM CHLORIDE 0.9% 1,000 ML IV STA (15:39)
[2024-06-25] MEDS ORDERED: ONDANSETRON ODT 4 MG TAB PO PRN (16:25)
[2024-06-25] MEDS ORDERED: NALOXONE 0.4 MG/ML 1 ML VIAL IV PRN (16:25)
[2024-06-25] MEDS ORDERED: MORPHINE SULFATE 4 MG/ML SYRINGE IV PRN (16:25)
[2024-06-25] MEDS: SODIUM CHLORIDE 0.9% 1,000 ML IV SCH (17:31)
[2024-06-25] MEDS: DILTIAZEM DRIP BOLUS FROM BAG 1 MG SOLN IV ONE (17:37)
[2024-06-25] MEDS: DILTIAZEM 125 MG in SODIUM CHLORIDE 0.9% 100 ML IV SCH (17:37)
[2024-06-25] MEDS: SODIUM CHLORIDE 0.9% 1,000 ML IV ONE (17:45)
[2024-06-25] MEDS ORDERED: ACETAMINOPHEN TAB 325 MG TAB PO PRN (20:31)
[2024-06-25] MEDS ORDERED: DEXTROSE 50% SYRINGE 50 ML IVP PRN (20:32)
[2024-06-25 22:27] LABS: Glucose,Whole Blood 153 mg/dL (70-110)
[2024-06-25] MEDS: INSULIN DETEMIR (LEVEMIR) 100 UNIT/ML SYR SQ SCH (22:28)
[2024-06-25] MEDS: INSULIN ASPART (NovoLOG) 100 UNIT/ML VIAL SQ SCH (22:30)
[2024-06-25] MEDS: PREGABALIN 100 MG CAP PO SCH (23:00)
[2024-06-25] MEDS: APIXABAN 2.5 MG TABLET PO SCH (23:00)
[2024-06-25] MEDS: PANTOPRAZOLE 40 MG TABLET PO SCH (23:00)
--- NOTE | 2024-06-26 00:51 | P.HPIM ---
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 Presents to the emergency department today after syncopal episode. She was at her primary care's office when she had 1 episode of syncope which was witnessed by a nurse practitioner, who stated she was out for approximately 30 seconds to 1 minute. Patient states that she was seated in a chair at the time, and recal ls that they were discussing her medications at home prior to the syncopal episode which she does not recall. She denies any symptoms preceding the syncopal episode, denying lightheadedness, dizziness, chest pain, shortness of breath or palpitations. She states that following the episode she just remembers them continuing to discuss her medications. She states that she was diagnosed with A-fib a while ago, however was only started on Eliquis more recently, she has never endorsed an episode of active A-fib since her diagnosis. Since the patient has been in the emergency department she has had a persistently elevated heart rate, and was started on a Cardizem drip. When seen at bedside patient was accompanied by 2 of her sons, who were able to add additional details, although the patient herself is an excellent historian. Patient endorsed some "floaters" in her left visual khan. Denies headache or temporal tenderness. Notes that she had a severe headache when she was previously diagnosed with GCA and lost her vision. She states that she is resting comfortably at this time and has no other acute complaints. Labratory review: -WBCs 3.7, Hgb 13.0, hct 40.0, PLT 119; D-dimer 0.61; sodium 135, potassium 4.6, BUN 28, creatinine 0.72, AST 33, ALT 20, alkaline phosphatase 73 -Trending troponins: Initial troponin 0.025 -> 0.013 Imaging: -EKG done in the ER showed heart rate of 133, atrial tachycardia with short NC interval Vitals: -On arrival: Blood pressure 135/67, heart rate 108, respiratory rate 18, SpO2 98% on room air -Currently: Blood pressure 87/49, heart rate 81, respiratory rate 16, SpO2 100% on 2 L nasal cannula Patient admitted to internal medicine service REVIEW OF SYSTEMS: CONSTITUTIONAL: No fever, no malaise, no fatigue. HEENT: No recent visual problems or hearing problems. Denied any sore throat. CARDIOVASCULAR: No chest pain, orthopnea, PND, no palpitations, no syncope. PULMONARY: No shortness of breath, no cough, no hemoptysis. GASTROINTESTINAL: No diarrhea, no nausea, no vomiting, no abdominal pain. NEUROLOGICAL: No headaches, no weakness, no numbness. HEMATOLOGICAL: Denies any bleeding or petechiae. GENITOURINARY: Denies any burning micturition, frequency, or urgency. MUSCULOSKELETAL/RHEUMATOLOGICAL: Denies any joint pain, swelling, or any muscle pain. ENDOCRINE: Denies any polyuria or polydipsia. The rest of the 14-point review of systems is negative. PHYSICAL EXAMINATION: GENERAL: The patient is alert and oriented x3, not in any acute distress. Well developed, well nourished. HEENT: Pupils are round and equally reacting to light. EOMI. No scleral icterus. No conjunctival pallor. Normocephalic, atraumatic. No pharyngeal erythema. No thyromegaly. CARDIOVASCULAR: S1 and S2 present. No murmurs, rubs, or gallops. PULMONARY: Chest is clear to auscultation, no wheezing or crackles. ABDOMEN: Soft, nontender, nondistended, normoactive bowel sounds. No palpable organomegaly. MUSCULOSKELETAL: No joint swelling or deformity. EXTREMITIES: No cyanosis, clubbing, or pedal edema. NEUROLOGICAL: Gross neurological examination did not reveal any focal deficits. SKIN: No rashes. Bruising and various scabs at different stages of healing in all extremities. Assessment and plan 83-year-old female with PMH of A-fib on Eliquis, asthma, CVA/TIA, diabetes mellitus, hyperlipidemia, hypertension, osteo arthritis and rheumatoid arthritis. Presents to the emergency department today after syncopal episode. Case was discussed with the ED and the patient been admitted to the internal medicine service for further evaluation. #Syncopal Episode #A-fib with RVR on Eliquis -Patient started on Cardizem drip in the emergency department -At home maintained on amiodarone, currently held -Cardiology consulted -Cardiac monitoring -Magnesium and phosphorus currently pending -Repeat EKG in the morning (06/26) -Follows with Dr. 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 14 days -Check ESR and CRP levels GI prohylaxis: Protonix 40 mg daily DVT prophylaxis: Maintained at home on Eliquis 2.5 mg twice daily Dictation was produced using [employer] dictation software. please excuse any grammatical, word or spelling errors. 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, hx migraines, History of Any Multi-Drug Resistant Organisms: None Reported Past Surgical History: Cholecystectomy, Hysterectomy, Joint Replacement, Orthopedic Surgery, Tonsillectomy Additional Past Surgical History / Comment(s): cataracts, lopez knee arthroscopy, rt thumb joint replacement, left knee replacement, lopez shoulder rotator cuff, lopez capral bunnel, lopez bunionectomy Past Anesthesia/Blood Transfusion Reactions: No Reported Reaction Past Psychological History: No Psychological Hx Reported Past Alcohol Use History: Occasional Past Drug Use History: None Reported - Past Family History Mother Family Medical History: Cancer Son(s) Family Medical History: Diabetes Mellitus Additional Family Medical History / Comment(s): son passed from complications diabetes Medications and Allergies Home Medications Medication Instructions Recorded Confirmed Type Aspirin 81 mg PO DAILY 06/05/19 06/25/24 History Apixaban [Eliquis] 2.5 mg PO BID 06/25/24 06/25/24 History Empagliflozin [Jardiance] 10 mg PO DAILY 06/25/24 06/25/24 History Insulin Aspart [NovoLOG Flexpen] 3 units SQ AC-TID 06/25/24 06/25/24 History Insulin Glargine,Hum.rec.anlog 15 units SQ HS 06/25/24 06/25/24 History [Lantus Solostar Pen] Metoprolol Succinate (ER) [Toprol 50 mg PO DAILY 06/25/24 06/25/24 History Xl] Omeprazole 20 mg PO HS 06/25/24 06/25/24 History Pregabalin [Lyrica] 100 mg PO BID 06/25/24 06/25/24 History Sarilumab [Kevzara] 200 mg IV Q14D 06/25/24 06/25/24 History amLODIPine [Norvasc] 5 mg PO HS 06/25/24 06/25/24 History lisinopriL [Zestril] 10 mg PO DAILY 06/25/24 06/25/24 History metFORMIN HCL ER [Glucophage XR] 1,000 mg PO BID 06/25/24 06/25/24 History predniSONE 17.5 mg PO DAILY 06/25/24 06/25/24 History Allergies Allergy/AdvReac Type Severity Reaction Status Date / Time infliximab [From Remicade] Allergy Severe Anaphylaxis Verified 06/25/24 16:24 ondansetron HCl [From Zofran] Allergy Severe Vomiting, Verified 06/25/24 16:24 red streak up arm with IV administration erythromycin base Allergy hives Verified 06/25/24 16:24 [Erythromycin Base] adhesive AdvReac red, itchy Verified 06/25/24 16:24 skin Physical Exam Vitals: Vital Signs Temp Pulse Resp BP Pulse Ox 06/25/24 19:25 82 20 96/61 100 06/25/24 17:34 81 16 87/49 100 06/25/24 14:07 98.0 F 108 H 18 135/67 98 Intake and Output 06/25/24 06/25/24 06/25/24 06:59 14:59 22:59 Other: Weight 54.885 kg Results CBC & Chem 7: 06/25/24 14:16 06/25/24 14:16 Labs: Abnormal Lab Results - Last 24 Hours (Table) 06/25/24 06/25/24 06/25/24 Range/Units 14:16 14:16 14:16 WBC 3.7 L (3.8-10.6) k/uL Plt Count 119 L (150-450) k/uL APTT 20.2 L (22.0-30.0) sec D-Dimer 0.61 H (<0.60) mg/L FEU Sodium 135 L (137-145) mmol/L Chloride 111 H (98-107) mmol/L Carbon Dioxide 19 L (22-30) mmol/L BUN 28 H (7-17) mg/dL Calcium 7.5 L (8.4-10.2) mg/dL Alkaline Phosphatase 33 L (38-126) U/L Total Protein 4.8 L (6.3-8.2) g/dL Albumin 2.7 L (3.5-5.0) g/dL
[2024-06-26] MEDS: HYDROcodone/APAP 5-325MG 1 EACH TAB PO STA (02:25)
[2024-06-26 06:17] LABS: Glucose,Whole Blood 64 mg/dL (70-110)
[2024-06-26] MEDS: DEXTROSE 50% SYRINGE 50 ML IVP PRN (06:20)
[2024-06-26 06:33] LABS: Glucose,Whole Blood 199 mg/dL (70-110)
[2024-06-26 08:51] LABS: ALT 19 U/L (8-44); AST 17 U/L (13-35); Albumin 3.1 g/dL (3.8-4.9); Albumin/Globulin Ratio 2.38 Ratio (1.60-3.17); Alkaline Phosphatase 36 U/L (41-126); Blood Urea Nitrogen 19.2 mg/dL (9.0-27.0); Calcium 7.9 mg/dL (8.7-10.3); Carbon Dioxide 21.5 mmol/L (21.6-31.8); Chloride 113 mmol/L (96-109); Globulin 1.3 g/dL (1.6-3.3); Glucose 73 mg/dL (70-110); HCT 40.7 % (37.2-46.3); HGB 12.6 g/dL (12.0-15.0); MCH 30.1 pg (27.0-32.0); MCV 97.4 FL (80.0-97.0); Magnesium 2.1 mg/dL (1.5-2.4); Mean Platelet Volume 11.5 FL (9.5-12.2); NRBC Per 100 WBC 0 X 10*3/uL (0.00-0.01); Phosphorus 3.5 mg/dL (2.4-5.1); Platelet Count 118 X 10*3/uL (140-440); RBC 4.18 X 10*6/uL (4.10-5.20); Sodium 142 mmol/L (135-145); Total Bilirubin 0.5 mg/dL (0.3-1.2); Total Protein 4.4 g/dL (6.2-8.2); WBC 2.96 X 10*3/uL (4.50-10.00)
[2024-06-26] MEDS: predniSONE 10 MG TAB PO SCH (08:58)
[2024-06-26] MEDS: ASPIRIN 81 MG PO SCH (08:58)
[2024-06-26] MEDS: METOPROLOL SUCCINATE (ER) 50 MG TAB.ER.24H PO SCH (09:08)
[2024-06-26] MEDS: METOPROLOL SUCCINATE (ER) 25 MG TAB.ER.24H PO SCH ×2 (09:25→10:22)
[2024-06-26 10:00] LABS: Basophils # (A) 0.03 X 10*3/uL (0.00-0.10); Eosinophils # (A) 0.03 X 10*3/uL (0.04-0.35); Immature Grans, Automated 0 %; Lymphocytes # (A) 1.62 X 10*3/uL (0.90-5.00); Lymphocytes % (A) 54.7 %; Monocytes # (A) 0.35 X 10*3/uL (0.20-1.00); Monocytes % (A) 11.8 %; Neutrophils # (A) 0.93 X 10*3/uL (1.80-7.70); Neutrophils % (A) 31.5 %
--- NOTE | 2024-06-26 10:43 | CA ---
Transthoracic Echo Report Name: Azul Ravi Age: 83 Gender: F : 1940 Exam Date: 06/26/2024 09:20 Exam Location: [facility] Ht (in): 62 Wt (lb): 121 Ordering Physician: Rajendra Ma MD Attending/Referring Phys: Component Assembler Margarita Mcneil RDCS Procedure CPT: Indications: Syncope Cardiac Hx: Technical Quality: Good Contrast 1: Total Dose (mL): Contrast 2: Total Dose (mL): MEASUREMENTS (Male / Female) Normal Values 2D ECHO LV Diastolic Diameter PLAX 3.7 cm 4.2 - 5.9 / 3.9 - 5.3 cm LV Systolic Diameter PLAX 1.9 cm IVS Diastolic Thickness 1.0 cm 0.6 - 1.0 / 0.6 - 0.9 cm LVPW Diastolic Thickness 0.8 cm 0.6 - 1.0 / 0.6 - 0.9 cm LV Relative Wall Thickness 0.5 RV Internal Dim ED PLAX 3.1 cm LVOT Diameter 2.0 cm LA Systolic Diameter LX 3.2 cm 3.0 - 4.0 / 2.7 - 3.8 cm LV Diastolic Volume MOD 4C 64.4 cm??? LV Systolic Volume MOD 4C 37.2 cm??? LV Ejection Fraction MOD 4C 42.2 % LV Cardiac Index MOD 4C 1484.9 cm???/min???m??? LV Diastolic Length 4C 6.8 cm LV Systolic Length 4C 5.8 cm LV Diastolic Volume MOD 2C 71.7 cm??? LV Systolic Volume MOD 2C 36.4 cm??? LV Ejection Fraction MOD 2C 49.2 % LV Cardiac Index MOD 2C 1929.6 cm???/min???m??? LV Diastolic Length 2C 5.8 cm LV Systolic Length 2C 5.1 cm LA Volume 35.1 cm??? 18 - 58 / 22 - 52 cm??? LA Volume Index 22.6 cm???/m??? 16 - 28 cm???/m??? M-MODE Aortic Root Diameter MM 2.8 cm AV Cusp Separation MM 2.0 cm DOPPLER AV Peak Velocity 163.5 cm/s AV Peak Gradient 10.7 mmHg AV Mean Velocity 100.0 cm/s AV Mean Gradient 4.9 mmHg AV Velocity Time Integral 27.7 cm AI Peak Velocity 336.9 cm/s AI Peak Gradient 45.4 mmHg AI Pressure Half Time 1784.9 ms LVOT Peak Velocity 89.0 cm/s LVOT Peak Gradient 3.2 mmHg LVOT Velocity Time Integral 15.2 cm LVOT Stroke Volume 49.4 cm??? LVOT Stroke Volume Index 32.0 ml/m??? LVOT Cardiac Index 2701.8 cm???/min???m??? AV Area Cont Eq vti 1.8 cm??? AV Area Cont Eq pk 1.8 cm??? MV Area PHT 5.2 cm??? MV Deceleration Time 176.5 ms TR Peak Velocity 277.3 cm/s TR Peak Gradient 30.8 mmHg Right Ventricular Systolic Press 35.4 mmHg FINDINGS Left Ventricle Left ventricular ejection fraction is estimated at 40-45 %. Small left ventricular cavity. Left ventricular wall thickness normal. Stroke-volume 39 mL/min, indexed stroke-volume 25.3 ml/m2 Right Ventricle Normal right ventricular size and function. Mild pulmonary hypertension. Right Atrium Normal right atrial size. No right atrial thrombus or mass seen. Left Atrium Moderate left atrial dilated Mitral Valve Structurally normal mitral valve. No mitral stenosis, regurgitation or prolapse. Aortic Valve Trileaflet aortic valve. Calcific thickening of the aortic valve leaflet. mild aortic regurgitation. Tricuspid Valve Structurally normal tricuspid valve. Mild tricuspid regurgitation. Pulmonic Valve Structurally normal pulmonic valve. No pulmonic regurgitation. Pericardium No pericardial or pleural effusion. Aorta Normal size aortic root and proximal ascending aorta. CONCLUSIONS LVEF 40 to 45% Moderately reduced LV systolic function. Small LV cavity. Trileaflet aortic valve with calcific thickening of valve leaflets. Mild aortic regurgitation Moderate tricuspid regurgitation Normal RV size and systolic function. RVSP 36 mmHg Moderate left atrial dilatation Previewed by: Dr Mikel De Souza (Electronically Signed) Final Date: 26 June 2024 10:42
--- NOTE | 2024-06-26 11:43 | P.CRDCN ---
History of Present Illness History of present illness: HISTORY OF PRESENT ILLNESS: This is a 83-year-old female with a past medical history significant for atrial fibrillation, hypertension, diabetes, CVA, nonischemic cardiomyopathy, giant ce ll arteritis, frequent PACs and atrial tachycardia. Patient follows in the office with Dr. Cosby. We have been asked to see the patient in consultation for A-fib with RVR. Patient examined at the bedside. 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 Apparently, the patient had a syncopal episode that was witnessed by her provider. The patient states that she does not remember passing out. She does state that she sometimes loses her balance at home but denies previous episodes of syncope. Patient states that she was feeling well in the morning. She states that she ate breakfast before her doctor's appointment. She denied any nausea vomiting or diarrhea. Denied any chest pain or shortness of breath. The patient was found to be in A-fib with RVR when she presented to the hospital. She has since converted to sinus mechanism. Patient is hypotensive this morning with a blood pressure of 77/51. It is noted that when the patient was seen in the office on 05/24/2024 she was in atrial fibrillation at that time and was recently taken off of her beta- juanis as she was admitted at [facility] in April for malnutrition and dehydration. DIAGNOSTICS: - EKG reveals A-fib with RVR - Laboratory data: WBC 2.96. Hemoglobin 12.6. Platelet count 118. Sodium 142. Potassium 4.0. BUN 19.2. Creatinine 0.6. Troponin negative x 3. C-reactive protein less than 0.5. - Current home cardiac medications include amlodipine 5 mg at night, lisinopril 10 mg daily, aspirin 81 mg daily, Jardiance 10 mg daily, Eliquis 2.5 mg twice a day, metoprolol succinate 50 mg daily although patient was not taking this. -Echocardiogram obtained this admission reveals EF 40 to 45%, moderate TR, mild AI -Patient underwent Lexiscan stress test in January 2023 without evidence of ischem ia REVIEW OF SYSTEMS: At the time of my exam: CONSTITUTIONAL: Denies fever or chills. HEENT: Denies blurred vision, vision changes, or eye pain. Denies hemoptysis CARDIOVASCULAR: Denies chest pain. Denies orthopnea. Denies PND. Denies palpitations RESPIRATORY: Denies shortness of breath. GASTROINTESTINAL: Denies abdominal pain. Denies nausea or vomiting. HEMATOLOGIC: Denies bleeding disorders. GENITOURINARY: Denies any blood in urine. SKIN: Denies pruitis. Denies rash. PHYSICAL EXAM: VITAL SIGNS: Reviewed. GENERAL: Well-developed in no acute distress. HEENT: Head is normocephalic. Pupils are equal, round. Sclerae anicteric. Mucous membranes of the mouth are moist. Neck supple. No JVD or thyromegaly LUNGS: Respirations even and unlabored. Lungs essentially clear to auscultation bilaterally. HEART: Regular rate and rhythm. S1 and S2 heard. ABDOMEN: Soft. Nondistended. Nontender. EXTREMITIES: Normal range of motion. No clubbing or cyanosis. Peripheral pulses intact. No lower extremity edema NEUROLOGIC: Awake and alert. Oriented x 3. ASSESSMENT: Syncope Hypotension Paroxysmal atrial fibrillation with RVR History of nonischemic cardiomyopathy, 4045% History of giant cell arteritis Hypertension Diabetes History of CVA History of frequent PACs History of atrial tachycardia History of [employer] loop recorder, 07/2022 PLAN: 2D echo obtained and reviewed Discontinue amlodipine and lisinopril Begin low-dose metoprolol 12.5 mg daily. Hold for systolic blood pressure less than 90. Obtain orthostatic blood pressures Interrogate loop recorder Continue telemetry monitoring Further recommendations pending patient course Nurse practitioner note has been reviewed by physician. Signing provider agrees with the documented findings, assessment, and plan of care documented by GIS DATABASE ADMINISTRATOR as a scribe. 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, hx migraines, History of Any Multi-Drug Resistant Organisms: None Reported Past Surgical History: Cholecystectomy, Hysterectomy, Joint Replacement, Orthopedic Surgery, Tonsillectomy Additional Past Surgical History / Comment(s): cataracts, lopez knee arthroscopy, rt thumb joint replacement, left knee replacement, lopez shoulder rotator cuff, lopez capral bunnel, lopez bunionectomy Past Anesthesia/Blood Transfusion Reactions: No Reported Reaction Past Psychological History: No Psychological Hx Reported Past Alcohol Use History: Occasional Past Drug Use History: None Reported - Past Family History Mother Family Medical History: Cancer Son(s) Family Medical History: Diabetes Mellitus Additional Family Medical History / Comment(s): son passed from complications diabetes Medications and Allergies Home Medications Medication Instructions Recorded Confirmed Type Aspirin 81 mg PO DAILY 06/05/19 06/25/24 History Apixaban [Eliquis] 2.5 mg PO BID 06/25/24 06/25/24 History Empagliflozin [Jardiance] 10 mg PO DAILY 06/25/24 06/25/24 History Insulin Aspart [NovoLOG Flexpen] 3 units SQ AC-TID 06/25/24 06/25/24 History Insulin Glargine,Hum.rec.anlog 15 units SQ HS 06/25/24 06/25/24 History [Lantus Solostar Pen] Omeprazole 20 mg PO HS 06/25/24 06/25/24 History Pregabalin [Lyrica] 100 mg PO BID 06/25/24 06/25/24 History Sarilumab [Kevzara] 200 mg IV Q14D 06/25/24 06/25/24 History metFORMIN HCL ER [Glucophage XR] 1,000 mg PO BID 06/25/24 06/25/24 History predniSONE 17.5 mg PO DAILY 06/25/24 06/25/24 History Allergies Allergy/AdvReac Type Severity Reaction Status Date / Time infliximab [From Remicade] Allergy Severe Anaphylaxis Verified 06/25/24 16:24 ondansetron HCl [From Zofran] Allergy Severe Vomiting, Verified 06/25/24 16:24 red streak up arm with IV administration erythromycin base Allergy hives Verified 06/25/24 16:24 [Erythromycin Base] adhesive AdvReac red, itchy Verified 06/25/24 16:24 skin Physical Exam Vitals: Vital Signs Temp Pulse Pulse Resp BP BP Pulse Ox 06/26/24 08:49 60 16 77/51 98 06/26/24 07:00 97.3 F L 60 16 98 06/26/24 00:55 97.3 F L 69 18 106/72 98 06/26/24 00:22 76 18 79/60 95 06/25/24 23:39 74 18 84/52 98 06/25/24 19:25 82 20 96/61 100 06/25/24 17:34 81 16 87/49 100 06/25/24 14:07 98.0 F 108 H 18 135/67 98 Intake and Output 06/25/24 06/26/24 06/26/24 22:59 06:59 14:59 Other: # Voids 2 Weight 54.885 kg Results 06/26/24 03:35 06/26/24 03:35 Cardiac Enzymes 06/25/24 06/25/24 06/25/24 Range/Units 14:16 14:16 17:26 AST 33 (14-36) U/L Troponin I 0.025 0.013 (0.000-0.034) ng/mL 06/25/24 06/26/24 Range/Units 20:37 03:35 AST 17 (14-36) U/L Troponin I 0.013 (0.000-0.034) ng/mL Coagulation 06/25/24 Range/Units 14:16 PT 11.2 (10.0-12.5) sec APTT 20.2 L (22.0-30.0) sec CBC 06/25/24 06/26/24 Range/Units 14:16 03:35 WBC 3.7 L 2.96 L (3.8-10.6) k/uL RBC 4.08 4.18 (3.80-5.40) m/uL Hgb 13.0 12.6 (11.4-16.0) gm/dL Hct 40.0 40.7 (34.0-46.0) % Plt Count 119 L 118 L (150-450) k/uL Comprehensive Metabolic Panel 06/25/24 06/26/24 Range/Units 14:16 03:35 Sodium 135 L 142 (137-145) mmol/L Potassium 4.6 4.0 (3.5-5.1) mmol/L Chloride 111 H 113 H (98-107) mmol/L Carbon Dioxide 19 L 21.5 L (22-30) mmol/L BUN 28 H 19.2 (7-17) mg/dL Creatinine 0.72 0.6 (0.52-1.04) mg/dL Glucose 91 73 (74-99) mg/dL Calcium 7.5 L 7.9 L (8.4-10.2) mg/dL AST 33 17 (14-36) U/L ALT 20 19 (4-34) U/L Alkaline Phosphatase 33 L 36 L (38-126) U/L Total Protein 4.8 L 4.4 L (6.3-8.2) g/dL Albumin 2.7 L 3.1 L (3.5-5.0) g/dL Current Medications Generic Name Dose Route Start Last Admin Trade Name Freq PRN Reason Stop Dose Admin Acetaminophen 650 mg 06/25/24 20:31 Acetaminophen Tab 325 Mg Tab PO Q6HR PRN Fever and/ or Pain Apixaban 2.5 mg 06/25/24 21:00 06/26/24 08:58 Apixaban 2.5 Mg Tablet PO 2.5 mg BID CRISTINA Administration Protocol Aspirin 81 mg 06/26/24 09:00 06/26/24 08:58 Aspirin 81 Mg PO 81 mg DAILY CRISTINA Administration Dextrose/Water 25 ml 06/25/24 20:32 06/26/24 06:20 Dextrose 50% Syringe 50 Ml IVP 25 ml PER PROTOCOL PRN Administration Hypoglycemia Protocol Dextrose/Water 50 ml 06/25/24 20:32 Dextrose 50% Syringe 50 Ml IVP PER PROTOCOL PRN Hypoglycemia Protocol Sodium Chloride 1,000 mls @ 75 mls/hr 06/25/24 16:30 06/26/24 06:09 Saline 0.9% IV 75 mls/hr .[id number] CRISTINA Administration Insulin Aspart 0 unit 06/25/24 21:00 06/26/24 06:17 Insulin Aspart (Novolog) 100 Unit/Ml Vial SQ Not Given ACHS [facility] Protocol Insulin Detemir 15 unit 06/25/24 21:00 06/25/24 22:28 Insulin Detemir (Levemir) 100 Unit/Ml Syr SQ 15 unit HS [facility] Administration Metoprolol Succinate 12.5 mg 06/26/24 09:15 06/26/24 09:25 Metoprolol Succinate (Er) 25 Mg Tab.Er.24h PO Not Given DAILY CRISTINA Morphine Sulfate 4 mg 06/25/24 16:25 Morphine Sulfate 4 Mg/Ml Syringe IV Q4HR PRN Severe Pain (Scale 7 to 10) Naloxone HCl 0.2 mg 06/25/24 16:25 Naloxone 0.4 Mg/Ml 1 Ml Vial IV Q2M PRN Opioid Reversal Ondansetron HCl 4 mg 06/25/24 16:25 Ondansetron Odt 4 Mg Tab PO Q8HR PRN Nausea And Vomiting Pantoprazole Sodium 40 mg 06/25/24 20:45 06/26/24 06:24 Pantoprazole 40 Mg Tablet PO 40 mg [id number] CRISTINA Administration Prednisone 17.5 mg 06/26/24 09:00 06/26/24 08:58 Prednisone 10 Mg Tab PO 17.5 mg DAILY CRISTINA Administration Pregabalin 100 mg 06/25/24 21:00 06/26/24 08:58 Pregabalin 100 Mg Cap PO 100 mg BID CRISTINA Administration Intake and Output 06/25/24 06/26/24 06/26/24 22:59 06:59 14:59 Other: # Voids 2 Weight 54.885 kg 06/26/24 03:35 06/26/24 03:35
[2024-06-26 12:33] LABS: Glucose,Whole Blood 189 mg/dL (70-110)
[2024-06-26 14:01] VITALS: BMI 22.1
[2024-06-26 17:22] LABS: Glucose,Whole Blood 340 mg/dL (70-110)
--- NOTE | 2024-06-26 17:59 | P.PN ---
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 She presented to the hospital on 06/25/2024 after reports of syncopal episode. Patient was sitting in chair when she was witnessed to slump over losing consciousness by a nurse practitioner home stated episode lasted approximately 1 minute. Upon arrival to our facility, patient underwent evaluation in the emergency department. Vital signs upon arrival show blood pressure 135/67, heart rate 108, respiratory rate 18, temp 98.0 F, and SpO2 of 90% on room air. EKG was completed showing atrial fibrillation with RVR at [address] depression in lateral leads I, II, and aVL. Labs were completed and reviewed. CBC showing bicytopenia with WBC count of 3.7 and platelet count of 119. Coagulation profile showing low PTT of 20.2 and elevated D-dimer of 0.61 normal with age adjustment. BMP showing non-anion gap metabolic acidosis with chloride of 111, bicarb of 19, and anion gap of 5 and prerenal azotemia with BUN of 28. Blood glucose was 91. Magnesium 1.8. Liver profile showing a low alkaline phosphatase of 33 otherwise normal findings. Troponin was 0.025. Patient was admitted under services with consultation to cardiology. Troponins were trended resulting at 0.025, 0.013, and 0.013. Echocardiogram completed showing a reduced EF of 40 to 45% with mild aortic regurgitation and moderate tricuspid regurgitation. Physical exam: Vital signs reviewed and stable. General: Nontoxic, no distress and appears stated age. Derm: Skin warm and dry, normal coloration for ethnicity. Bruising in different stages of healing to upper extremities. Head: Atraumatic, normocephalic and symmetric. Eyes: EOM's intact, no lid lag, and anicteric sclera Mouth: no lip lesions, mucus membranes moist Cardiovascular: regular rate and rhythm with normal S1S2, systolic murmur, positive posterior tibial pulses bilaterally, and cap refill < 2 seconds. Lungs: Respirations even, regular, and unlabored on room air. Lungs CTA bilaterally, no rhonchi, no rales, no wheezing, and no accessory muscle usage. Abdominal: soft, nontender to palpation, no guarding, no appreciable organomegaly Ext: ROM intact. No gross muscle atrophy, no edema, no contractures. Venous discoloration to bilateral lower extremities. Neuro: Speech clear, face symmetrical and CN II-XII grossly intact with no noted focal neuro deficits Psych: Alert and oriented to person, place, time, and situation. Appropriate and pleasant affect. Assessment and Plan of Care: Syncopal episode Hypotension Atrial fibrillation with RVR Nonischemic cardiomyopathy Hypertension Hyperlipidemia History of CVA -Cardiology following discontinuing amlodipine and lisinopril starting patient on low-dose metoprolol 12.5 mg daily. -Orthostatic vitals -Cardiology to interrogate loop recorder -Patient to remain on continuous telemetry monitoring -Troponins were trended resulting at 0.025, 0.013, and 0.013. -Echocardiogram completed showing a reduced EF of 40 to 45% with mild aortic regurgitation and moderate tricuspid regurgitation. Insulin-dependent diabetes mellitus -Hemoglobin A1c 10.6%. -Continue with 15 units Levemir nightly along with glycemic protocol and NovoLog sliding scale. 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 14 days -CRP less than 0.5 and ESR less than 1. Data and imaging reviewed: Morning labs reviewed. CBC showing continued bicytopenia with WBC count of 2.96 and platelet count of 118. BMP showing non-anion gap metabolic acidosis with chloride of 113, bicarb of 21.5, and anion gap of 7.50. Blood glucose 73. Magnesium 2.1. Liver profile showing low alkaline phosphatase of 36. Albumin low at 3.1. Troponins were trended resulting at 0.025, 0.013, and 0.013.CRP less than 0.5 and ESR less than 1. Vital signs reviewed. Blood pressure low this morning at 77/51, heart rate 60, respiratory rate 16, temp 97.3 F, and SpO2 of 98% on room air. Echocardiogram completed showing a reduced EF of 40 to 45% with mild aortic regurgitation and moderate tricuspid regurgitation. CODE STATUS: Full code DVT prophylaxis: Eliquis Anticipated discharge date: Pending clinical course Anticipated discharge place: Home Patient was seen independently by Nurse Pracitioner. This document was prepared using [employer] dictation software. Please allow for errors in market research associate, while rare they do occur. Roger Sorto NP rendered care for this patient independently, reviewed the findings and plan as documented in the note above and agree with plan. I did not physically speak with or examine the patient on this date. Objective - Vital Signs Vital signs: Vital Signs Temp 97.3 F L 06/26/24 07:00 Pulse 60 06/26/24 07:00 Resp 16 06/26/24 07:00 BP 106/72 06/26/24 00:55 Pulse Ox 98 06/26/24 07:00 FiO2 Intake & Output 06/25/24 06/26/24 06/26/24 18:59 06:59 18:59 Weight 54.885 kg Other: # Voids 2 - Labs CBC & Chem 7: 06/26/24 03:35 06/26/24 03:35 Labs: Abnormal Lab Results - Last 24 Hours (Table) 06/25/24 06/25/24 06/25/24 Range/Units 14:16 14:16 14:16 WBC 3.7 L (3.8-10.6) k/uL Plt Count 119 L (150-450) k/uL APTT 20.2 L (22.0-30.0) sec D-Dimer 0.61 H (<0.60) mg/L FEU Sodium 135 L (137-145) mmol/L Chloride 111 H (98-107) mmol/L Carbon Dioxide 19 L (22-30) mmol/L BUN 28 H (7-17) mg/dL POC Glucose (mg/dL) (70-110) mg/dL Calcium 7.5 L (8.4-10.2) mg/dL Alkaline Phosphatase 33 L (38-126) U/L Total Protein 4.8 L (6.3-8.2) g/dL Albumin 2.7 L (3.5-5.0) g/dL 06/25/24 06/26/24 06/26/24 Range/Units 22:26 06:16 06:27 WBC (3.8-10.6) k/uL Plt Count (150-450) k/uL APTT (22.0-30.0) sec D-Dimer (<0.60) mg/L FEU Sodium (137-145) mmol/L Chloride (98-107) mmol/L Carbon Dioxide (22-30) mmol/L BUN (7-17) mg/dL POC Glucose (mg/dL) 153 H 64 L 199 H (70-110) mg/dL Calcium (8.4-10.2) mg/dL Alkaline Phosphatase (38-126) U/L Total Protein (6.3-8.2) g/dL Albumin (3.5-5.0) g/dL
[2024-06-26 20:20] LABS: Glucose,Whole Blood 267 mg/dL (70-110)
[2024-06-27 06:25] LABS: Glucose,Whole Blood 144 mg/dL (70-110)
--- NOTE | 2024-06-27 10:08 | P.DS ---
Providers Date of admission: 06/25/24 16:46 Expected date of discharge: 06/27/24 Attending physician: Rajendra Ma MD Consults: 06/25/24 16:25 Consult Physician Routine Consulting Provider: Gonzalez Wild Consult Reason/Comments: [email or web address] Do you want consulting provider notified?: Yes Primary care physician: Yana Jeffries [facility] Course: Discharge Diagnosis: Syncopal episode. Likely secondary to hypotension. Amlodipine, lisinopril, and metoprolol were discontinued and patient started back on the low-dose metoprolol succinate at 12.5 mg daily. Patient was evaluated by cardiology and echocardiogram was completed showing a reduced EF of 40 to 45% with mild aortic regurgitation and moderate tricuspid regurgitation. After medication changes blood pressure much better stabilized. Currently 113/73 with heart rate of 62 on discharge. Patient also cleared from cardiology perspective recommending outpatient follow-up in their office in 1 to 2 weeks. 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 She presented to the hospital on 06/25/2024 after reports of syncopal episode. Patient was sitting in chair when she was witnessed to slump over losing consciousness by a nurse practitioner home stated episode lasted approximately 1 minute. Upon arrival to our facility, patient underwent evaluation in the emergency department. Vital signs upon arrival show blood pressure 135/67, heart rate 108, respiratory rate 18, temp 98.0 F, and SpO2 of 90% on room air. EKG was completed showing atrial fibrillation with RVR at [address] depression in lateral leads I, II, and aVL. Labs were completed and reviewed. CBC showing bicytopenia with WBC count of 3.7 and platelet count of 119. Coagulation profile showing low PTT of 20.2 and elevated D-dimer of 0.61 normal with age adjustment. BMP showing non-anion gap metabolic acidosis with chloride of 111, bicarb of 19, and anion gap of 5 and prerenal azotemia with BUN of 28. Blood glucose was 91. Magnesium 1.8. Liver profile showing a low alkaline phosphatase of 33 otherwise normal findings. Troponin was 0.025. Patient was admitted under services with consultation to cardiology. Troponins were trended resulting at 0.025, 0.013, and 0.013. Echocardiogram completed showing a reduced EF of 40 to 45% with mild aortic regurgitation and moderate tricuspid regurgitation. Syncopal episode is believed to be secondary to hypotension. Amlodipine, lisinopril, and metoprolol were discontinued and patient started back on a low-dose metoprolol succinate at 12.5 mg daily. Patient was evaluated by cardiology and cleared from their perspective recommending outpatient follow-up in their office in 1 to 2 weeks. After medication changes blood pressure much better stabilized. Currently 113/73 with heart rate of 62 on discharge. Patient updated on discharge plans and to follow-up with PCP in 1 to 2 days and with marine safety officer in 1 to 2 weeks. Physical exam: Vital signs reviewed and stable. General: Nontoxic, no distress and appears stated age. Derm: Skin warm and dry, normal coloration for ethnicity. Bruising in different stages of healing to upper extremities. Head: Atraumatic, normocephalic and symmetric. Eyes: EOM's intact, no lid lag, and anicteric sclera Mouth: no lip lesions, mucus membranes moist Cardiovascular: regular rate and rhythm with normal S1S2, systolic murmur, positive posterior tibial pulses bilaterally, and cap refill < 2 seconds. Lungs: Respirations even, regular, and unlabored on room air. Lungs CTA bi laterally, no rhonchi, no rales, no wheezing, and no accessory muscle usage. Abdominal: soft, nontender to palpation, no guarding, no appreciable organomegaly Ext: ROM intact. No gross muscle atrophy, no edema, no contractures. Venous discoloration to bilateral lower extremities. Neuro: Speech clear, face symmetrical and CN II-XII grossly intact with no noted focal neuro deficits Psych: Alert and oriented to person, place, time, and situation. Appropriate and pleasant affect. A total of 35 minutes of time were spent preparing this complex discharge summary. Pt was discharged on 06/27/2024 at 10:02 AM Patient was seen independently by Nurse Practitioner. This document was prepared using [employer] dictation software. Please allow for errors in maltster while rare they do occur. Roger Sorto NP rendered care for this patient independently, reviewed the findings and plan as documented in the note above. I did not physically speak with or examine the patient on this date. : Patient Condition at Discharge: Stable Plan - Discharge Summary Discharge Rx Participant: No New Discharge Prescriptions: New Metoprolol Succinate (ER) [Toprol XL] 12.5 mg PO DAILY 30 Days #30 tab Continue Aspirin 81 mg PO DAILY Empagliflozin [Jardiance] 10 mg PO DAILY metFORMIN HCL ER [Glucophage XR] 1,000 mg PO BID Omeprazole 20 mg PO HS Sarilumab [Kevzara] 200 mg IV Q14D Pregabalin [Lyrica] 100 mg PO BID Insulin Glargine,Hum.rec.anlog [Lantus Solostar Pen] 15 units SQ HS Apixaban [Eliquis] 2.5 mg PO BID predniSONE 17.5 mg PO DAILY Insulin Aspart [NovoLOG Flexpen] 3 units SQ AC-TID Discontinued amLODIPine [Norvasc] 5 mg PO HS lisinopriL [Zestril] 10 mg PO DAILY Metoprolol Succinate (ER) [Toprol Xl] 50 mg PO DAILY Discharge Medication List Aspirin 81 mg PO DAILY 06/05/19 [History] Apixaban [Eliquis] 2.5 mg PO BID 06/25/24 [History] Empagliflozin [Jardiance] 10 mg PO DAILY 06/25/24 [History] Insulin Aspart [NovoLOG Flexpen] 3 units SQ AC-TID 06/25/24 [History] Insulin Glargine,Hum.rec.anlog [Lantus Solostar Pen] 15 units SQ HS 06/25/24 [History] Omeprazole 20 mg PO HS 06/25/24 [History] Pregabalin [Lyrica] 100 mg PO BID 06/25/24 [History] Sarilumab [Kevzara] 200 mg IV Q14D 06/25/24 [History] metFORMIN HCL ER [Glucophage XR] 1,000 mg PO BID 06/25/24 [History] predniSONE 17.5 mg PO DAILY 06/25/24 [History] Metoprolol Succinate (ER) [Toprol XL] 12.5 mg PO DAILY 30 Days #30 tab 06/27/24 [Rx] Follow up Appointment(s)/Referral(s): Yana Riley III, MD [Primary Care Provider] - 1-2 days Patient Instructions/Handouts: Syncope (DC), Syncope in Older Adults (DC) Activity/Diet/Wound Care/Special Instructions: Activity: As tolerated. Take breaks as needed. Diet: Heart healthy and carb consistent diet. Avoid salts, or foods with hidden salts such as canned or boxed foods and frozen dinners. Extra salt makes your heart work harder and traps the fluid in your body for longer. Special Instructions: Take all of your medications as directed and remember to keep all of your doctor's appointments and follow-up as needed. Thank you for allowing us to participate in your care, it was truly a pleasure having you for our patient!!! . Discharge Disposition: HOME SELF-CARE
--- NOTE | 2024-06-27 11:03 | P.PN ---
Subjective HISTORY OF PRESENT ILLNESS: This is a 83-year-old female with a past medical history significant for atrial fibrillation, hypertension, diabetes, CVA, nonischemic cardiomyopathy, giant cell arteritis, frequent PACs and atrial tachycardia. Patient follows in the office with Dr. Cosby. We have been asked to see the patient in consultation for A-fib with RVR. Patient examined at the bedside. 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 Apparently, the patient had a syncopal episode that was witnessed by her provider. The patient states that she does not remember passing out. She does state that she sometimes loses her balance at home but denies previous episodes of syncope. Patient states that she was feeling well in the morning. She states that she ate breakfast before her doctor's appointment. She denied any nausea vomiting or diarrhea. Denied any chest pain or shortness of breath. The patient was found to be in A-fib with RVR when she presented to the hospital. She has since converted to sinus mecha nism. Patient is hypotensive this morning with a blood pressure of 77/51. It is noted that when the patient was seen in the office on 05/24/2024 she was in atrial fibrillation at that time and was recently taken off of her beta-juanis as she was admitted at [facility] in April for malnutrition and dehydration. DIAGNOSTICS: - EKG reveals A-fib with RVR - Laboratory data: WBC 2.96. Hemoglobin 12.6. Platelet count 118. Sodium 142. Potassium 4.0. BUN 19.2. Creatinine 0.6. Troponin negative x 3. C-reactive protein less than 0.5. - Current home cardiac medications include amlodipine 5 mg at night, lisinopril 10 mg daily, aspirin 81 mg daily, Jardiance 10 mg daily, Eliquis 2.5 mg twice a day, metoprolol succinate 50 mg daily although patient was not taking this. -Echocardiogram obtained this admission reveals EF 40 to 45%, moderate TR, mild AI -Patient underwent Lexiscan stress test in January 2023 without evidence of ischemia 06/27/2024 Patient examined this morning the bedside. Patient currently denies chest pain or pressure. She denies shortness of breath. Loop recorder interrogated revealing atrial fibrillation but no significant events were noted. Patient's blood pressures improved this morning. Last blood pressure reading 100/61. PHYSICAL EXAM: VITAL SIGNS: Reviewed. GENERAL: Well-developed in no acute distress. HEENT: Head is normocephalic. Pupils are equal, round. Sclerae anicteric. Mucous membranes of the mouth are moist. Neck supple. No JVD or thyromegaly LUNGS: Respirations even and unlabored. Lungs essentially clear to auscultation bilaterally. HEART: Regular rate and rhythm. S1 and S2 heard. ABDOMEN: Soft. Nondistended. Nontender. EXTREMITIES: Normal range of motion. No clubbing or cyanosis. Peripheral pulses intact. No lower extremity edema NEUROLOGIC: Awake and alert. Oriented x 3. ASSESSMENT: Syncope Hypotension Paroxysmal atrial fibrillation with RVR History of nonischemic cardiomyopathy, 4045% History of giant cell arteritis Hypertension Diabetes History of CVA History of frequent PACs History of atrial tachycardia History of [employer] loop recorder, 07/2022 PLAN: 2D echo obtained and reviewed Amlodipine and lisinopril have been discontinued. Do not resume upon discharge. Continue low-dose metoprolol 12.5 mg daily Patient may be discharged home today from a cardiac standpoint Patient to follow-up postdischarge in the office with Dr. Cosby Nurse practitioner note has been reviewed by physician. Signing provider agrees with the documented findings, assessment, and plan of care documented by DEPUTY CHIEF MAGISTRATE as a scribe. Objective - Vital Signs Vital signs: Vital Signs Temp 97.6 F 06/27/24 02:45 Pulse 67 06/27/24 02:45 Resp 18 06/27/24 02:45 BP 100/61 06/27/24 02:45 Pulse Ox 98 06/27/24 02:45 FiO2 Intake & Output 06/26/24 06/27/24 06/27/24 18:59 06:59 18:59 Intake Total 118 Balance 118 Weight 54.885 kg Intake: Oral 118 Other: Voiding Method Toilet # Voids 3 1 - Labs CBC & Chem 7: 06/26/24 03:35 06/26/24 03:35 Labs: Abnormal Lab Results - Last 24 Hours (Table) 06/26/24 06/26/24 06/26/24 Range/Units 12:31 17:20 20:19 POC Glucose (mg/dL) 189 H 340 H 267 H (70-110) mg/dL 06/27/24 Range/Units 06:23 POC Glucose (mg/dL) 144 H (70-110) mg/dL
[2024-06-27 11:07] VITALS: BP 113/73; PULSE 62; RESP 17; TEMP 97.8
== END 2024-06-27 11:48 | disposition home or self-care (01) ==
LOC: EC 14:06 → 6NMEDSUR 16:46
PROVIDERS: ADMIT Internal Medicine; ATTEND Internal Medicine
DX: I95.9 Hypotension, unspecified (principal); I48.0 Paroxysmal atrial fibrillation; E86.0 Dehydration; J45.909 Unspecified asthma, uncomplicated; E11.9 Type 2 diabetes mellitus without complications; I10 Essential (primary) hypertension; E78.5 Hyperlipidemia, unspecified; I42.8 Other cardiomyopathies; M31.6 Other giant cell arteritis; I47.19 Other supraventricular tachycardia; I08.2 Rheumatic disorders of both aortic and tricuspid valves; D75.89 Other specified diseases of blood and blood-forming organs; Z86.73 Personal history of transient ischemic attack (TIA), and cerebral infarction without residual deficits; Z79.01 Long term (current) use of anticoagulants; Z79.82 Long term (current) use of aspirin; Z79.84 Long term (current) use of oral hypoglycemic drugs; Z79.4 Long term (current) use of insulin; Z79.899 Other long term (current) drug therapy; Z88.1 Allergy status to other antibiotic agents
CPT/HCPCS: 96376; 96365; 96366; 99291; 36415; 93005; 93306; 85379; 80053 ×2; 85652; 83735 ×2; 84100; 84484; 85025 ×2; 85610; 85730; 86140; 83036; G0378 ×3; J7512 ×2

== ENCOUNTER 2024-08-27 14:57 | Inpatient (IN) | payer MEDICARE, OTHER ==
--- NOTE | 2024-08-27 15:22 | ED ---
Weakness HPI - General Chief complaint: Recheck/Abnormal Lab/Rx Stated complaint: bradycardia Time Seen by Provider: 08/27/24 15:09 Source: patient, EMS, RN notes reviewed, old records reviewed Mode of arrival: EMS Limitations: no limitations - History of Present Illness Initial comments: This is a 83-year-old female to the ER for evaluation patient notes today for evaluation of severe weakness profound weakness and is brought to ER by EMS. Patient recently had recorder placed to watch her heart she has history of atrial fibrillation no current chest pain just feels weak and per family is confused MD Complaint: generalized weakness, lack of energy, difficulty walking -: hour(s) Location: generalized Severity: severe Severity scale (1-10): 9 Consistency: constant Improves with: none Worsens with: none Context: recent illness, history of similar Associated Symptoms: chest pain, confusion, shortness of breath, syncope - Related Data Home Medications Medication Instructions Recorded Confirmed Aspirin 81 mg PO DAILY 06/05/19 08/27/24 Apixaban [Eliquis] 2.5 mg PO BID 06/25/24 08/27/24 Empagliflozin [Jardiance] 10 mg PO DAILY 06/25/24 08/27/24 Insulin Aspart [NovoLOG Flexpen] 3 units SQ AC-TID 06/25/24 08/27/24 Insulin Glargine,Hum.rec.anlog 15 units SQ HS 06/25/24 08/27/24 [Lantus Solostar Pen] Omeprazole 20 mg PO HS 06/25/24 08/27/24 Pregabalin [Lyrica] 100 mg PO BID 06/25/24 08/27/24 Sarilumab [Kevzara] 200 mg IV Q14D 06/25/24 08/27/24 metFORMIN HCL ER [Glucophage XR] 500 mg PO BID 06/25/24 08/27/24 Amiodarone [Cordarone] 200 mg PO BID 08/27/24 08/27/24 Gabapentin [Neurontin] 400 mg PO TID 08/27/24 08/27/24 predniSONE 3 mg PO DAILY 08/27/24 08/27/24 predniSONE 5 mg PO DAILY 08/27/24 08/27/24 Previous Rx's Medication Instructions Recorded Metoprolol Succinate (ER) [Toprol 25 mg PO DAILY 30 Days #30 tab 08/28/24 XL] lisinopriL [Zestril] See Taper PO DAILY 30 Days #30 08/28/24 Allergies Allergy/AdvReac Type Severity Reaction Status Date / Time infliximab [From Remicade] Allergy Severe Anaphylaxis Verified 08/27/24 16:20 ondansetron HCl [From Zofran] Allergy Severe Vomiting, Verified 08/27/24 16:20 red streak up arm with IV administration erythromycin base Allergy hives Verified 08/27/24 16:20 [Erythromycin Base] adhesive AdvReac red, itchy Verified 08/27/24 16:20 skin Review of Systems ROS Statement: Those systems with pertinent positive or pertinent negative responses have been documented in the HPI. ROS Other: All systems not noted in ROS Statement are negative. 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, hx migraines, History of Any Multi-Drug Resistant Organisms: None Reported Past Surgical History: Cholecystectomy, Hysterectomy, Joint Replacement, Orthopedic Surgery, Tonsillectomy Additional Past Surgical History / Comment(s): cataracts, lopez knee arthroscopy, rt thumb joint replacement, left knee replacement, lopez shoulder rotator cuff, lopez capral bunnel, lopez bunionectomy Past Anesthesia/Blood Transfusion Reactions: No Reported Reaction Past Psychological History: No Psychological Hx Reported Smoking Status: Never smoker Past Alcohol Use History: Occasional Past Drug Use History: None Reported - Past Family History Mother Family Medical History: Cancer Son(s) Family Medical History: Diabetes Mellitus Additional Family Medical History / Comment(s): son passed from complications diabetes General Exam Limitations: altered mental status, physical limitation General appearance: alert, lethargic Head exam: Present: atraumatic, normocephalic, normal inspection Eye exam: Present: normal appearance, PERRL, EOMI. Absent: scleral icterus, conjunctival injection, periorbital swelling ENT exam: Present: normal exam, mucous membranes moist Neck exam: Present: normal inspection. Absent: tenderness, meningismus, lymphadenopathy Respiratory exam: Present: normal lung sounds bilaterally. Absent: respiratory distress, wheezes, rales, rhonchi, stridor Cardiovascular Exam: Present: normal rhythm, bradycardia, normal heart sounds. Absent: systolic murmur, diastolic murmur, rubs, gallop, clicks GI/Abdominal exam: Present: soft, normal bowel sounds. Absent: distended, tenderness, guarding, rebound, rigid Extremities exam: Present: normal inspection, full ROM, normal capillary refill. Absent: tenderness, pedal edema, joint swelling, calf tenderness Back exam: Present: normal inspection Neurological exam: Present: alert, oriented X3, CN II-XII intact Psychiatric exam: Present: normal affect, normal mood Skin exam: Present: warm, dry, intact, normal color. Absent: rash Course Vital Signs 08/27/24 08/27/24 08/27/24 15:00 15:13 15:29 Temperature 97.3 F L Pulse Rate 36 L 35 L 34 L Respiratory 16 18 18 Rate Blood Pressure 89/50 105/55 111/56 O2 Sat by Pulse 100 100 99 Oximetry 08/27/24 08/27/24 08/27/24 16:25 16:42 16:50 Temperature Pulse Rate 32 L 33 L 33 L Respiratory 18 18 18 Rate Blood Pressure 54/30 111/88 101/43 O2 Sat by Pulse 95 Oximetry 08/27/24 08/27/24 08/27/24 16:59 17:12 17:15 Temperature Pulse Rate 33 L 37 L 41 L Respiratory 18 18 18 Rate Blood Pressure 66/46 95/50 108/50 O2 Sat by Pulse 95 94 L Oximetry 08/27/24 08/27/24 08/27/24 17:20 17:25 17:29 Temperature Pulse Rate 55 L 56 L 58 L Respiratory 18 18 18 Rate Blood Pressure 127/87 144/59 135/74 O2 Sat by Pulse 95 94 L Oximetry 08/27/24 08/27/24 08/27/24 17:40 17:53 18:01 Temperature Pulse Rate 60 60 58 L Respiratory 18 18 18 Rate Blood Pressure 138/72 156/95 101/74 O2 Sat by Pulse 96 96 94 L Oximetry 08/27/24 18:08 Temperature Pulse Rate 57 L Respiratory 18 Rate Blood Pressure 120/62 O2 Sat by Pulse 95 Oximetry - Reevaluation(s) Reevaluation #1: 08/27/24 17:13 Records reviewed Reevaluation #2: 08/27/24 17:13 Patient symptoms continue to worsen here in the emergency department patient becoming more weak confused Reevaluation #3: 08/27/24 17:14 Patient and family informed of results questions answered Reevaluation #4: Was pt. sent in by a medical professional or institution ([facility]ENNY Arevalo, [employer], urgent care, hospital, or group home...) When possible be specific @ -no Did you speak to anyone other than the patient for history (EMS, parent, family, police, friend...)? What history was obtained from this source @ -no Did you review nursing and triage notes (agree or disagree)? Why? @ -agree Are old charts reviewed (outside hosp., previous admission, EMS record, old EKG, old radiological studies, urgent care reports/EKG's, group home records)? Report findings @ -yes Differential Diagnosis (chest pain, altered mental status, abdominal pain women, abdominal pain men, vaginal bleeding, weakness, fever, dyspnea, syncope, headache, dizziness, GI bleed, back pain, seizure, CVA, palpatations, mental health, musculoskeletal)? @ -prior EKG interpreted by me (3pts min.). @ -yes X-rays interpreted by me (1pt min.). @ -no CT interpreted by me (1pt min.). @ -no U/S interpreted by me (1pt. min.). @ -no What testing was considered but not performed or refused? (CT, X-rays, U/S, labs)? Why? @ -none What meds were considered but not given or refused? Why? @ -none Did you discuss the management of the patient with other professionals (professionals i.e. , JENNY, [employer], lab, RT, psych nurse, social media marketing analyst, payroll accounting specialist, teacher, sba business development officer, case advocate)? Give summary @ -no Was smoking cessation discussed for >3mins.? @ -no Was critical care preformed (if so, how long)? @ -yes95 Were there social determinants of health that impacted care today? How? (Homelessness, low income, unemployed, alcoholism, drug addiction, transportation, low edu. Level, literacy, decrease access to med. care, longterm, rehab)? @ -none Was there de-escalation of care discussed even if they declined (Discuss DNR or withdrawal of care, Hospice)? DNR status @ -no What co-morbidities impacted this encounter? (DM, HTN, Smoking, COPD, CAD, Cancer, CVA, ARF, Chemo, Hep., AIDS, mental health diagnosis, sleep apnea, morbid obesity)? @ -none Was patient admitted / discharged? Hospital course, mention meds given and route, prescriptions, significant lab abnormalities, going to OR and other pertinent info. @ - 83 female who presents today for evaluation of weakness patient was found to be in profound bradycardia history of atrial fibrillation currently with implantable loop recorder. Patient will be admitted for pacemaker treatment requiring both double pressor support including Levophed and dopamine here in the ER Admitted Undiagnosed new problem with uncertain prognosis? @ -no Drug Therapy requiring intensive monitoring for toxicity (Heparin, Nitro, Insulin, Cardizem)? @ -no Were any procedures done? @ -no Diagnosis/symptom? @ -Symptomatic bradycardia weakness altered mental status Acute, or Chronic, or Acute on Chronic? @ -Acute Uncomplicated (without systemic symptoms) or Complicated (systemic symptoms)? @ -Complicated Side effects of treatment? @ -no Exacerbation, Progression, or Severe Exacerbation? @ -exacerbation Poses a threat to life or bodily function? How? (Chest pain, USA, PA, pneumonia, PE, COPD, DKA, ARF, appy, cholecystitis, CVA, Diverticulitis, Homicidal, Suicidal, threat to staff... and all critical care pts) @ -yes severe bradycardia Reevaluation #5: Differential Weakness: Hypoglycemia, shock, sepsis, hyponatremia, anemia, infection, PA, ETOH, adverse medicine reaction, overdose, stroke, this is not meant to be an all-inclusive list. - Consultations Consultation #1: Spoke with Dr. Mukherjee he did evaluate the patient here at the bedside Consultation #2: Spoke with [facility] who agrees to admit the patient EKG Findings - EKG Comments: EKG Findings:: EKG is bradycardia 36 QRS 89 QTc 394 - EKG Results: EKG shows: bradycardia Medical Decision Making - Medical Decision Making 83 female who presents today for evaluation of weakness patient was found to be in profound bradycardia history of atrial fibrillation currently with impla ntable loop recorder. Patient will be admitted for pacemaker treatment requiring both double pressor support including Levophed and dopamine here in the ER - Lab Data Result diagrams: 08/28/24 02:30 08/28/24 01:59 Lab Results 01/21/25 01/21/25 01/21/25 Range/Units 15:13 15:28 15:28 WBC 6.9 (3.8-10.6) k/uL RBC 4.99 (3.80-5.40) m/uL Hgb 13.6 (11.4-16.0) gm/dL Hct 44.6 (34.0-46.0) % MCV 89.2 D (80.0-100.0) fL MCH 27.3 (25.0-35.0) pg MCHC 30.6 L (31.0-37.0) g/dL RDW 14.5 (11.5-15.5) % Plt Count 166 (150-450) k/uL MPV 8.7 Neutrophils % 86 % Lymphocytes % 9 % Monocytes % 4 % Eosinophils % 0 % Basophils % 1 % Neutrophils # 5.9 (1.3-7.7) k/uL Lymphocytes # 0.6 L (1.0-4.8) k/uL Monocytes # 0.3 (0-1.0) k/uL Eosinophils # 0.0 (0-0.7) k/uL Basophils # 0.0 (0-0.2) k/uL Hypochromasia Marked PT 11.2 (10.0-12.5) sec INR 1.0 (<1.2) APTT 20.7 L (22.0-30.0) sec Sodium 135 L (137-145) mmol/L Potassium 5.7 H (3.5-5.1) mmol/L Chloride 103 (98-107) mmol/L Carbon Dioxide 22 (22-30) mmol/L Anion Gap 10 mmol/L BUN 20 H (7-17) mg/dL Creatinine 0.84 (0.52-1.04) mg/dL Est GFR (CKD-EPI)AfAm 75 (>60 ml/min/1.73 sqM) Est GFR (CKD-EPI)NonAf 65 (>60 ml/min/1.73 sqM) Glucose 262 H (74-99) mg/dL Lactic Ac Sepsis Rflx Plasma Lactic Acid Pepe (0.7-2.0) mmol/L Calcium 9.1 (8.4-10.2) mg/dL Phosphorus 4.9 H (2.5-4.5) mg/dL Magnesium 1.8 (1.6-2.3) mg/dL Total Bilirubin 1.8 H (0.2-1.3) mg/dL AST 454 H (14-36) U/L ALT 314 H (4-34) U/L Alkaline Phosphatase 48 (38-126) U/L Ammonia (<30) umol/L Troponin I (0.000-0.034) ng/mL NT-Pro-B Natriuret Pep 860 pg/mL Total Protein 6.0 L (6.3-8.2) g/dL Albumin 4.0 (3.5-5.0) g/dL Lipase (23-300) U/L TSH 5.640 H (0.465-4.680) mIU/L Free T4 (0.78-2.19) ng/dL 08/27/24 08/27/24 08/27/24 Range/Units 15:28 15:28 15:28 WBC (3.8-10.6) k/uL RBC (3.80-5.40) m/uL Hgb (11.4-16.0) gm/dL Hct (34.0-46.0) % MCV (80.0-100.0) fL MCH (25.0-35.0) pg MCHC (31.0-37.0) g/dL RDW (11.5-15.5) % Plt Count (150-450) k/uL MPV Neutrophils % % Lymphocytes % % Monocytes % % Eosinophils % % Basophils % % Neutrophils # (1.3-7.7) k/uL Lymphocytes # (1.0-4.8) k/uL Monocytes # (0-1.0) k/uL Eosinophils # (0-0.7) k/uL Basophils # (0-0.2) k/uL Hypochromasia PT (10.0-12.5) sec INR (<1.2) APTT (22.0-30.0) sec Sodium (137-145) mmol/L Potassium (3.5-5.1) mmol/L Chloride (98-107) mmol/L Carbon Dioxide (22-30) mmol/L Anion Gap mmol/L BUN (7-17) mg/dL Creatinine (0.52-1.04) mg/dL Est GFR (CKD-EPI)AfAm (>60 ml/min/1.73 sqM) Est GFR (CKD-EPI)NonAf (>60 ml/min/1.73 sqM) Glucose (74-99) mg/dL Lactic Ac Sepsis Rflx Plasma Lactic Acid Pepe 5.6 H* (0.7-2.0) mmol/L Calcium (8.4-10.2) mg/dL Phosphorus (2.5-4.5) mg/dL Magnesium (1.6-2.3) mg/dL Total Bilirubin (0.2-1.3) mg/dL AST (14-36) U/L ALT (4-34) U/L Alkaline Phosphatase (38-126) U/L Ammonia (<30) umol/L Troponin I <0.012 (0.000-0.034) ng/mL NT-Pro-B Natriuret Pep pg/mL Total Protein (6.3-8.2) g/dL Albumin (3.5-5.0) g/dL Lipase (23-300) U/L TSH (0.465-4.680) mIU/L Free T4 1.52 (0.78-2.19) ng/dL 08/27/24 08/27/24 08/27/24 Range/Units 15:52 16:40 16:40 WBC (3.8-10.6) k/uL RBC (3.80-5.40) m/uL Hgb (11.4-16.0) gm/dL Hct (34.0-46.0) % MCV (80.0-100.0) fL MCH (25.0-35.0) pg MCHC (31.0-37.0) g/dL RDW (11.5-15.5) % Plt Count (150-450) k/uL MPV Neutrophils % % Lymphocytes % % Monocytes % % Eosinophils % % Basophils % % Neutrophils # (1.3-7.7) k/uL Lymphocytes # (1.0-4.8) k/uL Monocytes # (0-1.0) k/uL Eosinophils # (0-0.7) k/uL Basophils # (0-0.2) k/uL Hypochromasia PT (10.0-12.5) sec INR (<1.2) APTT (22.0-30.0) sec Sodium (137-145) mmol/L Potassium (3.5-5.1) mmol/L Chloride (98-107) mmol/L Carbon Dioxide (22-30) mmol/L Anion Gap mmol/L BUN (7-17) mg/dL Creatinine (0.52-1.04) mg/dL Est GFR (CKD-EPI)AfAm (>60 ml/min/1.73 sqM) Est GFR (CKD-EPI)NonAf (>60 ml/min/1.73 sqM) Glucose (74-99) mg/dL Lactic Ac Sepsis Rflx Y Plasma Lactic Acid Pepe (0.7-2.0) mmol/L Calcium (8.4-10.2) mg/dL Phosphorus (2.5-4.5) mg/dL Magnesium (1.6-2.3) mg/dL Total Bilirubin (0.2-1.3) mg/dL AST (14-36) U/L ALT (4-34) U/L Alkaline Phosphatase (38-126) U/L Ammonia <9 (<30) umol/L Troponin I (0.000-0.034) ng/mL NT-Pro-B Natriuret Pep pg/mL Total Protein (6.3-8.2) g/dL Albumin (3.5-5.0) g/dL Lipase 121 (23-300) U/L TSH (0.465-4.680) mIU/L Free T4 (0.78-2.19) ng/dL - EKG Data -: EKG Interpreted by [place] Critical Care Time Critical Care Time: Yes Total Critical Care Time: 95 Disposition Clinical Impression: Dehydration, Atrial fibrillation, Bradycardia, Near syncope Disposition: ADMITTED IP TO THIS HOSP Condition: Serious Is patient prescribed a controlled substance at d/c from ED?: No Time of Disposition: 17:00
[2024-08-27] MEDS: SODIUM CHLORIDE 0.9% 500 ML 500 ML IV STA (15:28)
[2024-08-27] MEDS: CALCIUM CHLORIDE 100 MG/ML 10 ML SYRINGE IVP STA (15:29)
[2024-08-27 15:46] LABS: Basophils % (A) 1 %; Eosinophils % (A) 0 %; HCT 44.6 % (34.0-46.0); HGB 13.6 gm/dL (11.4-16.0); Hypochromasia Marked; Lymphocytes # (A) 0.6 k/uL (1.0-4.8); Lymphocytes % (A) 9 %; MCH 27.3 pg (25.0-35.0); MCHC 30.6 g/dL (31.0-37.0); Mean Platelet Volume 8.7; Monocytes # (A) 0.3 k/uL (0-1.0); Monocytes % (A) 4 %; Neutrophils # (A) 5.9 k/uL (1.3-7.7); Neutrophils % (A) 86 %; Platelet Count 166 k/uL (150-450); RBC 4.99 m/uL (3.80-5.40); RDW 14.5 % (11.5-15.5); WBC 6.9 k/uL (3.8-10.6)
[2024-08-27 15:47] LABS: ALT 314 U/L (4-34); African American GFR (CKD) 75 (>60 ml/min/1.73 sqM); Anion Gap 10 mmol/L; Blood Urea Nitrogen 20 mg/dL (7-17); Calcium 9.1 mg/dL (8.4-10.2); Carbon Dioxide 22 mmol/L (22-30); Chloride 103 mmol/L (98-107); Glucose 262 mg/dL (74-99); Non-African American GFR(CKD) 65 (>60 ml/min/1.73 sqM); Sodium 135 mmol/L (137-145); Total Bilirubin 1.8 mg/dL (0.2-1.3)
[2024-08-27 15:47] LABS: MCV 89.2 fL (80.0-100.0)
[2024-08-27 15:51] LABS: AST 454 U/L (14-36); Alkaline Phosphatase 48 U/L (38-126); Magnesium 1.8 mg/dL (1.6-2.3); Phosphorus 4.9 mg/dL (2.5-4.5); Potassium 5.7 mmol/L (3.5-5.1)
[2024-08-27 15:54] LABS: Prothrombin Time 11.2 sec (10.0-12.5)
[2024-08-27 15:56] LABS: NT-Pro-B-Type Natriuretic Pept 860 pg/mL
[2024-08-27 15:57] LABS: Partial Thromboplastin Time 20.7 sec (22.0-30.0)
[2024-08-27] MEDS: DOPamine DRIP 800 MG in DEXTROSE/WATER 1 250ML.BAG IV ONE (16:35)
[2024-08-27] MEDS: SODIUM CHLORIDE 0.9% 1,000 ML IV STA (16:42)
[2024-08-27] MEDS: NOREPINEPHRINE 4 MG in SODIUM CHLORIDE 0.9% 250 ML IV ONE (17:09)
[2024-08-27] MEDS ORDERED: NALOXONE 0.4 MG/ML 1 ML VIAL IV PRN (17:40)
[2024-08-27] MEDS ORDERED: ONDANSETRON 4 MG/2 ML VIAL IVP PRN (17:40)
[2024-08-27] MEDS ORDERED: ceFAZolin 1,000 MG in SODIUM CHLORIDE 0.9% IRRIGATIO 1,000 ML IRRIGATION ONE (17:48)
[2024-08-27] MEDS ORDERED: SUCCINYLCHOLINE CHLORIDE 200 MG/10 ML VIAL IV ONE (18:30)
[2024-08-27] MEDS: SODIUM CHLORIDE 0.9% 1,000 ML IV ONE (18:30)
[2024-08-27] MEDS ORDERED: NOREPINEPHRINE 1 MG/ML 4 ML VIAL IV ONE (18:30)
[2024-08-27] MEDS ORDERED: ETOMIDATE 2 MG/ML 10 ML VIAL ONE (18:30)
[2024-08-27] MEDS ORDERED: LIDOCAINE 1% INJ 10MG/ML (20 ML MDV) ONE (18:30)
[2024-08-27] MEDS: LACTATED RINGERS 1,000 ML IV ONE (18:30)
[2024-08-27] MEDS ORDERED: ePHEDrine 50 MG/ML 1 ML VIAL ONE (18:30)
[2024-08-27] MEDS ORDERED: PHENYLEPHRINE 10 MG/ML VIAL ONE (18:30)
[2024-08-27] MEDS: VANCOMYCIN 1,000 MG in SODIUM CHLORIDE 0.9% 250 ML IVPB STA (19:00)
[2024-08-27] MEDS: IOPAMIDOL-250 100ML BTL IVP ONE (19:01)
[2024-08-27] MEDS: LIDOCAINE 1% INJ 10MG/ML (20 ML MDV) SQ ONE (19:28)
[2024-08-27] MEDS: ROPIVACAINE 5 MG/ML 30 ML VIAL MISCELLANE ONE (19:28)
[2024-08-27] MEDS: HEPARIN SODIUM,PORCINE (1 ML) 2,500 UNIT in SODIUM CHLORIDE 0.9% 250 ML IRRIGATION ONE (19:37)
[2024-08-27] MEDS: ceFAZolin 1,000 MG in SODIUM CHLORIDE 0.9% IRRIG BTL 250 ML IRRIGATION ONE (19:37)
--- NOTE | 2024-08-27 20:36 | P.EPPROC ---
- EP Procedure Note Electrophysiology Procedure Note: Diagnosis Symptomatic bradycardia, severe junctional rhythm at 30 beats a minute, associated with hypotension and confusion Tachy-bradycardia syndrome Normal potassium near normal TSH On prednisone for giant cell arteritis Procedure Dual-chamber pacemaker implantation Details Patient was brought to the EP lab in a fasting state. Written informed consent was obtained prior to the procedure. Conscious sedation provided. IV antibiotics administered including vancomycin. Local anesthesia administered. A 4 cm incision made in the pectoral area. Subfascial pocket made. Venous accesses obtained Venous sheaths placed. Leads placed in the right heart Atrial lead position the right atrial appendage. Active fix lead in the right atrial appendage, Castanon Ultipace 52 cm lead Pacing threshold 0.5 V at 0.5 ms and pacing impedance of 440 ohms. Small retrograde P waves during junctional rhythm RV lead position in the RV apex. Passive lead Castanon Isoflex lead, 50 cm in length Pacing threshold 0.8 V at 0.5 ms, R waves greater than 12 mV and pacing impedance of 950 ohms Device assistant manager retail: [employer] Assurity MRI dual-chamber pacemaker Dual-chamber pacemaker device connected to the leads and placed in the subfascial pocket Antibiotic pouch placed Patient tolerated the procedure well without acute complications Pacemaker programming DDDR with VIP pacing, Plan Reduce amiodarone to 200 mg p.o. daily for 1 to 2 months and then subsequently further reduce it to 100 mg p.o. daily Once her blood pressure normalizes then resume beta-blockers at 25 mg p.o. daily Later start lisinopril 5 mg p.o. daily Continue anticoagulation
[2024-08-27 22:05] VITALS: TEMP 98.2
[2024-08-27] MEDS: SODIUM CHLORIDE 0.9% 1,000 ML IV SCH (22:06)
[2024-08-27] MEDS: APIXABAN 2.5 MG TABLET PO SCH (22:13)
[2024-08-27] MEDS: PRAVASTATIN SODIUM 20 MG TAB PO SCH (22:13)
[2024-08-28] MEDS: MORPHINE SULFATE 4 MG/ML SYRINGE IV PRN (01:50)
[2024-08-28 01:59] LABS: Glucose,Whole Blood 103 mg/dL (70-110)
[2024-08-28 02:26] LABS: Basophils % (A) 1 %; Eosinophils # (A) 0.1 k/uL (0-0.7); Eosinophils % (A) 1 %; HCT 36.2 % (34.0-46.0); HGB 11.5 gm/dL (11.4-16.0); Hypochromasia Moderate; Lymphocytes # (A) 1.4 k/uL (1.0-4.8); Lymphocytes % (A) 26 %; MCH 27.6 pg (25.0-35.0); MCHC 31.8 g/dL (31.0-37.0); MCV 86.9 fL (80.0-100.0); Mean Platelet Volume 8.8; Monocytes # (A) 0.5 k/uL (0-1.0); Monocytes % (A) 10 %; Neutrophils # (A) 3.2 k/uL (1.3-7.7); Neutrophils % (A) 61 %; Platelet Count 152 k/uL (150-450); Poikilocytosis Slight; RBC 4.17 m/uL (3.80-5.40); RDW 14.7 % (11.5-15.5); WBC 5.3 k/uL (3.8-10.6)
[2024-08-28 02:33] LABS: ALT 397 U/L (4-34); AST 368 U/L (14-36); African American GFR (CKD) 83 (>60 ml/min/1.73 sqM); Albumin 3.5 g/dL (3.5-5.0); Alkaline Phosphatase 61 U/L (38-126); Anion Gap 7 mmol/L; Blood Urea Nitrogen 20 mg/dL (7-17); Calcium 9.7 mg/dL (8.4-10.2); Carbon Dioxide 24 mmol/L (22-30); Chloride 104 mmol/L (98-107); Glucose 102 mg/dL (74-99); Magnesium 1.8 mg/dL (1.6-2.3); Non-African American GFR(CKD) 72 (>60 ml/min/1.73 sqM); Phosphorus 5.2 mg/dL (2.5-4.5); Potassium 4.4 mmol/L (3.5-5.1); Sodium 135 mmol/L (137-145); Total Bilirubin 2.1 mg/dL (0.2-1.3); Total Protein 5.4 g/dL (6.3-8.2)
[2024-08-28] MEDS: ACETAMINOPHEN TAB 325 MG TAB PO PRN (03:58)
[2024-08-28 06:07] LABS: Glucose,Whole Blood 113 mg/dL (70-110)
--- NOTE | 2024-08-28 08:03 | XR ---
EXAMINATION TYPE: XR chest 1V DATE OF EXAM: 08/28/2024 6:45 AM COMPARISON: Chest x-ray October 04, 2017 CLINICAL INDICATION: Female, 83 years old with history of ppm new, bradycardia. TECHNIQUE: Single AP portable frontal view of the chest is obtained. FINDINGS: Surgical change left humeral head is redemonstrated. High riding right humeral head suggest s chronic rotator cuff tear. Lungs are grossly clear. Cardiomegaly is redemonstrated. There is new du al lead pacemaker projecting over the right atrium and right ventricle. Overlying loop recorder is pr esent. No pneumothorax is identified bilaterally. IMPRESSION: As above. [facility], , 08/28/2024 8:01 AM
--- NOTE | 2024-08-28 08:23 | CONS ---
CONSULTATION CHIEF COMPLAINT: Confusion, dizziness, and hypotension. HISTORY OF PRESENT ILLNESS: This is an 83-year-old lady with history of persistent atrial fibrillation, hypertension, diabetes, prior CVA, giant cell arteritis, and nonischemic cardiomyopathy with an ejection fraction of 45%, who presented to hospital complaining of fatigue, tiredness, not feeling well and came to the ER where she was found to be bradycardic. She had a regular narrow complex rhythm, seems like an accelerated rhythm with a heart rate in the 30s. Initially, her blood pressures were normal, but subsequently her blood pressure dropped. She received IV fluids and by the time I evaluated the patient, they just started her on IV dopamine. The patient was on amiodarone at home and is also taking Toprol-XL. Sees Dr. Cosby regularly. In fact was seen by him yesterday. The patient was admitted to hospital in June 2024 with atrial fibrillation with rapid ventricular rate. The patient has tachy-herve syndrome and needs pacemaker for effective treatment. I spoke to Dr. Cosby, her primary grind operator and he is going to proceed with a pacemaker. In the meantime, I will continue her on dopamine and if necessary Levophed. LABS: Show that the hemoglobin is 13.6, potassium is 5.7, but it is a hemolyzed sample. Blood sugar is 260. BNP is 860. TSH is 5.6. PAST MEDICAL HISTORY: Significant for persistent atrial fibrillation, [id number]-pemtttism diabetes. MEDICATIONS: At home include: 1. Amiodarone 200 b.i.d. 2. Insulin. 3. Aspirin. 4. Eliquis 2.5 b.i.d. 5. Metformin. 6. Lyrica. ALLERGIES: Are as documented including Zofran, erythromycin, and Remicade. SOCIAL HISTORY: Unremarkable. There is no history of smoking, ETOH abuse, or drug abuse. REVIEW OF SYSTEMS: 14 out of 14 review of systems has been performed, pertinent are as documented. PHYSICAL EXAM: VITAL SIGNS: Heart rate is around 33 beats per minute. Blood pressure is 110/70, respiratory rate is 18. CHEST: Reveals good air entry bilaterally. HEART: Reveals first and second heart sounds and a systolic murmur at the left lower sternal border. ABDOMEN: Soft. EXTREMITIES: Did not reveal any edema An echocardiogram in June showed an ejection fraction of 40% to 45% with moderate tricuspid regurgitation. White cell count is normal. Sodium is 135, creatinine is 0.8. Liver enzymes are elevated. ASSESSMENT AND PLAN: 1. Symptomatic bradycardia. 2. Tachy-herve syndrome. 3. History of persistent atrial fibrillation. PLAN: The patient will undergo a pacemaker. Dr. Cosby, her primary grind operator will perform the same. MMTONI / MIKON: [id number] /
--- NOTE | 2024-08-28 08:44 | P.HPIM ---
History of Present Illness H&P Date: 08/28/24 Chief Complaint: Bradycardia Patient is a 83-year-old female with paroxysmal atrial fibrillation on Eliquis 2.5 mg twice daily, diabetes mellitus, hyperlipidemia, hypertension who was brought in to the ER by EMS for severe weakness. Patient report that yesterday she was feeling a bit lightheaded and dizzy and fell sideways into the couch. Patient denied any loss of consciousness, passing out, syncope. Patient has never had anything like this before. Patient does take Eliquis 2.5 mg twice daily and amiodarone 200 mg daily for paroxysmal atrial fibrillation. Patient was brought in by EMS for severe weakness. Initial EKG showed supraventricular bradycardia with ventricular rate of 36 bpm. Subsequently patient was evaluated by cardiology patient underwent dual-chamber pacemaker implantation on 08/27/2024. She was seen at bedside today. She reports feeling better since the pacemaker implantation yesterday. Patient denies fever, chills, chest pain, shortness of breath, palpitations, nausea, vomiting, belly pain, lower extremity swelling. ED documentation reviewed. In the ED patient was treated with 1.5 L bolus of normal saline, potassium chloride 1000 mg IV x 1, Zofran, cefazolin 2 g IV every 6 hours Vitals on admission temperature 98.2, pulse rate 70, respiratory rate is 17, blood pressure 142/62, O2 sat 97% on room air EKG independently interpreted as supraventricular bradycardia with ventricular rate of 36 bpm, prolonged QT interval 494 ms CXR shows new dual lead pacemaker projecting over the right atrium and right ve ntricle. Overlying loop recorder is present. No pneumothorax is identified bilaterally. Labs on admission show WBC 5.3, hemoglobin 11.5, hematocrit 36.2, platelets 152, sodium 135, potassium 4.4, chloride 104, carbon dioxide 24, BUN 20, creatinine 0.77, phosphorus 5.2, total bili 2.1, AST 368, ALT 397, BNP 860, TSH 5.64 Review of systems: Pertinent positives and negatives as discussed in HPI, a complete review of systems was performed and all other systems are negative. PMH: Atrial fibrillation, diabetes mellitus, hyperlipidemia, hypertension PSH: Cholecystectomy, hysterectomy, tonsillectomy FMH: Son has a history of diabetes mellitus Allergies: Infliximab, ondansetron, erythromycin base, adhesive Social history: Tobacco: Never smoker Alcohol: Occasional alcohol use Recreational drugs: No drug use Travel: No travel history Sick contacts: No sick contact Physical examination: Vital signs reviewed General: nontoxic, no distress, appears at stated age Derm: warm, dry, intact Head: atraumatic, normocephalic, symmetric Eyes: EOMI, anicteric sclera Mouth: no lip lesion, mucus membranes moist Cardiovascular: S1 S2 reg, no murmur Lungs: CTA bilateral, no rhonchi, no rales, no accessory muscle use Abdominal: soft, non-tender to palpation Extremities: No cyanosis, clubbing, or pedal edema. Neuro: Alert, Oriented, Gross neurological examination did not reveal any focal deficits. Psych: well appearing, appropriate affect Assessment/Plan: 83-year-old female with atrial fibrillation, diabetes mellitus, hyperlipidemia, hypertension who was brought into the ER by EMS for severe weakness. Active: #. Supraventricular bradycardia Initial EKG showed supraventricular bradycardia with ventricular rate of 36 bpm, prolonged QT interval 494 ms Patient underwent dual-chamber pacemaker implantation on 08/27/2024 Per cardiology recommendation, reduce amiodarone to 200 mg p.o. daily for 1 to 2 months and then subsequently reduce it to 100 mg p.o. daily Continue cardiac monitoring Continue Eliquis 2.5 mg twice daily #. Mild hyponatremia Sodium 135 Continue normal saline at 75 cc an hour Monitor morning CMP #. Hyperphosphatemia Phosphorus 5.2 Monitor morning CMP #. Elevated liver enzymes Total bili 2.1, AST 368, ALT 397 Monitor morning CMP Chronic: #. Diabetes mellitus Hold home diabetic medications Initiate sliding scale insulin #. GERD Continue omeprazole 20 mg at bedtime #. Hypertension Continue lisinopril and metoprolol succinate 12.5 mg daily #. Paroxysmal atrial fibrillation Continue amiodarone 200 mg twice daily and apixaban 2.5 mg twice daily F: No restrictions E: Replete as needed N: Heart healthy diet A: EMS DVT prophylaxis: Apixaban 2.5 mg twice daily The patient is admitted with an anticipated less than 2 midnight stay for evaluation of symptomatic bradycardia CODE STATUS: Full code Discussed with: Patient Anticipated discharge place: Home Past Medical History Past Medical History: Atrial Fibrillation, Asthma, CVA/TIA, Diabetes Mellitus, Hyperlipidemia, Hypertension, Osteoarthritis (OA), Rheumatoid Arthritis (RA) Additional Past Medical History / Comment(s): CVA 2009-loss of short term memory, hx migraines, brain bleed 2019, [facility] causing R. eye blindness, cellulitis History of Any Multi-Drug Resistant Organisms: None Reported Past Surgical History: Cholecystectomy, Hysterectomy, Joint Replacement, Orthopedic Surgery, Pacemaker, Tonsillectomy Additional Past Surgical History / Comment(s): cataracts, lopez knee arthroscopy, rt thumb joint replacement, left knee replacement, lopez shoulder rotator cuff, lopez capral bunnel, lopez bunionectomy Past Anesthesia/Blood Transfusion Reactions: No Reported Reaction Type of Cardiac Device: Permanent Pacemaker Device Placement Date:: 08/27/24 Past Psychological History: No Psychological Hx Reported Smoking Status: Never smoker Past Alcohol Use History: Occasional Past Drug Use History: None Reported - Past Family History Mother Family Medical History: Cancer Son(s) Family Medical History: Diabetes Mellitus Additional Family Medical History / Comment(s): son passed from complications di abetes Medications and Allergies Home Medications Medication Instructions Recorded Confirmed Type Aspirin 81 mg PO DAILY 06/05/19 08/27/24 History Apixaban [Eliquis] 2.5 mg PO BID 06/25/24 08/27/24 History Empagliflozin [Jardiance] 10 mg PO DAILY 06/25/24 08/27/24 History Insulin Aspart [NovoLOG Flexpen] 3 units SQ AC-TID 06/25/24 08/27/24 History Insulin Glargine,Hum.rec.anlog 15 units SQ HS 06/25/24 08/27/24 History [Lantus Solostar Pen] Omeprazole 20 mg PO HS 06/25/24 08/27/24 History Pregabalin [Lyrica] 100 mg PO BID 06/25/24 08/27/24 History Sarilumab [Kevzara] 200 mg IV Q14D 06/25/24 08/27/24 History metFORMIN HCL ER [Glucophage XR] 500 mg PO BID 06/25/24 08/27/24 History Metoprolol Succinate (ER) [Toprol 12.5 mg PO DAILY 30 Days #30 tab 06/27/24 08/27/24 Rx XL] Amiodarone [Cordarone] 200 mg PO BID 08/27/24 08/27/24 History Gabapentin [Neurontin] 400 mg PO TID 08/27/24 08/27/24 History lisinopriL [Zestril] See Taper PO DAILY 08/27/24 08/27/24 History predniSONE 3 mg PO DAILY 08/27/24 08/27/24 History predniSONE 5 mg PO DAILY 08/27/24 08/27/24 History Allergies Allergy/AdvReac Type Severity Reaction Status Date / Time infliximab [From Remicade] Allergy Severe Anaphylaxis Verified 08/27/24 16:20 ondansetron HCl [From Zofran] Allergy Severe Vomiting, Verified 08/27/24 16:20 red streak up arm with IV administration erythromycin base Allergy hives Verified 08/27/24 16:20 [Erythromycin Base] adhesive AdvReac red, itchy Verified 08/27/24 16:20 skin Physical Exam Vitals: Vital Signs Temp Pulse Pulse Resp BP BP Pulse Ox 08/28/24 04:27 70 17 142/62 97 08/28/24 00:04 70 16 150/61 96 08/27/24 22:32 98.2 F 70 17 148/71 96 08/27/24 22:25 70 08/27/24 21:50 98.2 F 70 17 148/71 95 08/27/24 21:23 70 16 179/72 96 08/27/24 21:08 70 16 178/76 100 08/27/24 20:53 98 F 70 16 155/79 98 08/27/24 18:08 57 L 18 120/62 95 08/27/24 18:01 58 L 18 101/74 94 L 08/27/24 17:53 60 18 156/95 96 08/27/24 17:40 60 18 138/72 96 08/27/24 17:29 58 L 18 135/74 94 L 08/27/24 17:25 56 L 18 144/59 08/27/24 17:20 55 L 18 127/87 95 08/27/24 17:15 41 L 18 108/50 08/27/24 17:12 37 L 18 95/50 94 L 08/27/24 16:59 33 L 18 66/46 95 08/27/24 16:50 33 L 18 101/43 08/27/24 16:42 33 L 18 111/88 08/27/24 16:25 32 L 18 54/30 95 08/27/24 15:29 34 L 18 111/56 99 08/27/24 15:13 35 L 18 105/55 100 08/27/24 15:00 97.3 F L 36 L 16 89/50 100 Intake and Output 08/27/24 08/28/24 08/28/24 22:59 06:59 14:59 Intake Total 113.005 Output Total 850 Balance 113.005 -850 Intake: IV 100 Intake, IV Titration 13.005 Amount DOPamine DRIP 800 mg In 13.005 Dextrose/Water 1 250ml. bag @ 1 MCG/KG/MIN 1.123 mls/hr IV .Q24H ONE Rx#: [id number] Output: Urine 850 Other: Voiding Method External Catheter Toilet # Voids 1 Weight 59.874 kg 61.5 kg Results CBC & Chem 7: 08/28/24 02:30 08/28/24 01:59 Labs: Abnormal Lab Results - Last 24 Hours (Table) 08/27/24 08/27/24 08/27/24 Range/Units 15:13 15:28 15:28 MCHC 30.6 L (31.0-37.0) g/dL Lymphocytes # 0.6 L (1.0-4.8) k/uL APTT 20.7 L (22.0-30.0) sec Sodium 135 L (137-145) mmol/L Potassium 5.7 H (3.5-5.1) mmol/L BUN 20 H (7-17) mg/dL Glucose 262 H (74-99) mg/dL POC Glucose (mg/dL) (70-110) mg/dL Plasma Lactic Acid Pepe (0.7-2.0) mmol/L Phosphorus 4.9 H (2.5-4.5) mg/dL Total Bilirubin 1.8 H (0.2-1.3) mg/dL AST 454 H (14-36) U/L ALT 314 H (4-34) U/L Total Protein 6.0 L (6.3-8.2) g/dL TSH 5.640 H (0.465-4.680) mIU/L 08/27/24 08/27/24 08/27/24 Range/Units 15:28 18:18 22:19 MCHC (31.0-37.0) g/dL Lymphocytes # (1.0-4.8) k/uL APTT (22.0-30.0) sec Sodium (137-145) mmol/L Potassium (3.5-5.1) mmol/L BUN (7-17) mg/dL Glucose (74-99) mg/dL POC Glucose (mg/dL) (70-110) mg/dL Plasma Lactic Acid Pepe 5.6 H* 5.3 H* 3.1 H* (0.7-2.0) mmol/L Phosphorus (2.5-4.5) mg/dL Total Bilirubin (0.2-1.3) mg/dL AST (14-36) U/L ALT (4-34) U/L Total Protein (6.3-8.2) g/dL TSH (0.465-4.680) mIU/L 08/28/24 08/28/24 Range/Units 01:59 06:04 MCHC (31.0-37.0) g/dL Lymphocytes # (1.0-4.8) k/uL APTT (22.0-30.0) sec Sodium 135 L (137-145) mmol/L Potassium (3.5-5.1) mmol/L BUN 20 H (7-17) mg/dL Glucose 102 H (74-99) mg/dL POC Glucose (mg/dL) 113 H (70-110) mg/dL Plasma Lactic Acid Pepe (0.7-2.0) mmol/L Phosphorus 5.2 H (2.5-4.5) mg/dL Total Bilirubin 2.1 H (0.2-1.3) mg/dL AST 368 H (14-36) U/L ALT 397 H (4-34) U/L Total Protein 5.4 L (6.3-8.2) g/dL TSH (0.465-4.680) mIU/L Thrombosis Risk Factor Assmnt - Choose All That Apply Each Factor Represents 1 point: Varicose veins Each Risk Factor Represents 3 Points: Age 75 years or older Thrombosis Risk Factor Assessment Total Risk Factor Score: 4 Thrombosis Risk Factor Assessment Level: Moderate Risk
[2024-08-28] MEDS: LORazepam 2 MG/ML INJ IV STA (08:49)
[2024-08-28] MEDS: ACETAMINOPHEN IV (For NPO) 1,000 MG in EMPTY BAG 1 BAG IVPB ONE (08:50)
[2024-08-28] MEDS: AMIODARONE 200 MG TAB PO SCH (08:58)
[2024-08-28] MEDS: METOPROLOL SUCCINATE (ER) 25 MG TAB.ER.24H PO SCH (08:58)
[2024-08-28] MEDS: PANTOPRAZOLE 40 MG/10 ML VIAL IV SCH (08:59)
[2024-08-28] MEDS: ASPIRIN 81 MG PO SCH (08:59)
[2024-08-28 11:00] VITALS: RESP 16
[2024-08-28 11:52] LABS: Glucose,Whole Blood 143 mg/dL (70-110)
[2024-08-28 12:43] VITALS: BP 145/76; PULSE 79
--- NOTE | 2024-08-28 13:50 | P.PN ---
Subjective HISTORY OF PRESENT ILLNESS: This is an 83-year-old female who is admitted to the hospital secondary to symptomatic bradycardia with severe junctional rhythm. Patient underwent dual- chamber pacemaker implantation yesterday with Dr. Cosby. Patient examined this morning the bedside. Patient currently denies chest pain or pressure. She denies shortness of breath. Pacemaker was interrogated this morning by device rep and is functioning appropriately. Postprocedure x-ray completed with no evidence of pneumothorax. PHYSICAL EXAM: VITAL SIGNS: Reviewed. GENERAL: Well-developed in no acute distress. NECK: Supple. No JVD or thyromegaly LUNGS: Respirations even and unlabored. Lungs essentially clear to auscultation bilaterally. HEART: Regular rate and rhythm. S1 and S2 heard. EXTREMITIES: Normal range of motion. No clubbing or cyanosis. Peripheral pulses intact. No lower extremity edema ASSESSMENT: Symptomatic bradycardia, severe junctional rhythm associated with hypotension and confusion, status post dual-chamber pacemaker implantation Tachybradycardia syndrome Persistent atrial fibrillation History of CVA Nonischemic cardiomyopathy History of giant cell arteritis, on prednisone PLAN: Continue current cardiac medications Patient is stable for discharge home today from a cardiac standpoint Patient to follow-up postdischarge with Dr. Cosby Nurse practitioner note has been reviewed by physician. Signing provider agrees with the documented findings, assessment, and plan of care documented by [employer] MANAGER as a scribe. Objective - Vital Signs Vital signs: Vital Signs Temp 98.2 F 08/27/24 22:32 Pulse 79 08/28/24 12:00 Resp 16 08/28/24 12:00 BP 145/76 08/28/24 12:00 Pulse Ox 95 08/28/24 08:00 FiO2 Intake & Output 08/27/24 08/28/24 08/28/24 18:59 06:59 18:59 Intake Total 13.005 100 240 Output Total 850 Balance 13.005 -750 240 Weight 59.874 kg 61.5 kg Intake: IV 100 Intake, IV Titration 13.005 Amount DOPamine DRIP 800 mg In 13.005 Dextrose/Water 1 250ml. bag @ 1 MCG/KG/MIN 1.123 mls/hr IV .Q24H ONE Rx#: [id number] Oral 240 Output: Urine 850 Other: Voiding Method Toilet Toilet # Voids 1 - Labs CBC & Chem 7: 08/28/24 02:30 08/28/24 01:59 Labs: Abnormal Lab Results - Last 24 Hours (Table) 08/27/24 08/27/24 08/27/24 Range/Units 15:13 15:28 15:28 MCHC 30.6 L (31.0-37.0) g/dL Lymphocytes # 0.6 L (1.0-4.8) k/uL APTT 20.7 L (22.0-30.0) sec Sodium 135 L (137-145) mmol/L Potassium 5.7 H (3.5-5.1) mmol/L BUN 20 H (7-17) mg/dL Glucose 262 H (74-99) mg/dL POC Glucose (mg/dL) (70-110) mg/dL Plasma Lactic Acid Pepe (0.7-2.0) mmol/L Phosphorus 4.9 H (2.5-4.5) mg/dL Total Bilirubin 1.8 H (0.2-1.3) mg/dL AST 454 H (14-36) U/L ALT 314 H (4-34) U/L Total Protein 6.0 L (6.3-8.2) g/dL TSH 5.640 H (0.465-4.680) mIU/L 08/27/24 08/27/24 08/27/24 Range/Units 15:28 18:18 22:19 MCHC (31.0-37.0) g/dL Lymphocytes # (1.0-4.8) k/uL APTT (22.0-30.0) sec Sodium (137-145) mmol/L Potassium (3.5-5.1) mmol/L BUN (7-17) mg/dL Glucose (74-99) mg/dL POC Glucose (mg/dL) (70-110) mg/dL Plasma Lactic Acid Pepe 5.6 H* 5.3 H* 3.1 H* (0.7-2.0) mmol/L Phosphorus (2.5-4.5) mg/dL Total Bilirubin (0.2-1.3) mg/dL AST (14-36) U/L ALT (4-34) U/L Total Protein (6.3-8.2) g/dL TSH (0.465-4.680) mIU/L 08/28/24 08/28/24 08/28/24 Range/Units 01:59 06:04 11:51 MCHC (31.0-37.0) g/dL Lymphocytes # (1.0-4.8) k/uL APTT (22.0-30.0) sec Sodium 135 L (137-145) mmol/L Potassium (3.5-5.1) mmol/L BUN 20 H (7-17) mg/dL Glucose 102 H (74-99) mg/dL POC Glucose (mg/dL) 113 H 143 H (70-110) mg/dL Plasma Lactic Acid Pepe (0.7-2.0) mmol/L Phosphorus 5.2 H (2.5-4.5) mg/dL Total Bilirubin 2.1 H (0.2-1.3) mg/dL AST 368 H (14-36) U/L ALT 397 H (4-34) U/L Total Protein 5.4 L (6.3-8.2) g/dL TSH (0.465-4.680) mIU/L
--- NOTE | 2024-08-28 15:20 | P.DS ---
Providers Date of admission: 08/27/24 17:40 Expected date of discharge: 08/28/24 Attending physician: Robert Castle Consults: 08/27/24 17:40 Consult Physician Routine Consulting Provider: Gonzalez Wild Consult Reason/Comments: herve Do you want consulting provider notified?: Yes [facility]: Hospital course: Patient is a 83-year-old female with paroxysmal atrial fibrillation on Eliquis 2.5 mg twice daily, diabetes mellitus, hyperlipidemia, hypertension who was brought in to the ER by EMS for severe weakness. Patient report that yesterday she was feeling a bit lightheaded and dizzy and fell sideways into the couch. Patient denied any loss of consciousness, passing out, syncope. Patient has never had anything like this before. Patient does take Eliquis 2.5 mg twice daily and amiodarone 200 mg daily for paroxysmal atrial fibrillation. Patient was brought in by EMS for severe weakness. Initial EKG showed supraventricular bradycardia with ventricular rate of 36 bpm. Subsequently patient was evaluated by cardiology patient underwent dual-chamber pacemaker implantation on 08/27/2024. She was seen at bedside today. She reports feeling better since the pacemaker implantation yesterday. Patient denies fever, chills, chest pain, shortness of breath, palpitations, nausea, vomiting, belly pain, lower extremity swelling. Patient is medically stable to be discharged back home with home health. Patient's liver enzymes on 08/28/2024 were found to be elevated with total bili 2.1, AST 368, ALT 397 suspecting drug related hepatotoxicity as patient is on amiodarone. TSH was found to be elevated 5.64 suspecting euthyroid sick syndrome. Recommend patient to follow- up with primary care physician in 1 week after discharge to repeat CBC/CMP and TSH lab work. Patient's medications have been resumed with no changes. Recommend patient to follow-up with PCP and filling technician Dr. Cosby in 1 week after discharge. Physical exam at discharge: GENERAL: This is a 83-year-old in no apparent distress at the time of examination. Pleasant and cooperative. HEENT: Head is atraumatic, normocephalic. Pupils are equal, round, and reactive to light. Sclerae anicteric. Conjunctivae are clear. Mucus membranes of the mouth are moist. Neck is supple. RESPIRATORY: Clear to auscultation. No wheezes, rales, or rhonchi. No use of accessory muscles. Patient maintaining oxygen saturation greater than 92%. No chest wall tenderness is noted on palpation or with deep breathing. CARDIOVASCULAR: Regular rate and rhythm. S1 and S2 noted. No systolic or diastolic murmur auscultated. No JVD noted. No S3 or S4 noted. GASTROINTESTINAL: No distention noted. Abdomen soft and round. Normal active bowel sounds auscultated x 4 quadrants. No pain or tenderness noted upon palpation. INTEGUMENTARY: No cyanosis. No jaundice. No rashes noted. No cellulitis noted. EXTREMITIES: 2+ peripheral pulses. No evidence of peripheral edema. No calf tenderness noted. NEUROLOGIC: Cranial nerves II-XII intact. PSYCHIATRIC: Awake, alert, and oriented X 3. Appropriate affect. Intact judgement and insight. Patient Condition at Discharge: Serious Plan - Discharge Summary New Discharge Prescriptions: New Metoprolol Succinate (ER) [Toprol XL] 25 mg PO DAILY 30 Days #30 tab Continue Aspirin 81 mg PO DAILY Empagliflozin [Jardiance] 10 mg PO DAILY metFORMIN HCL ER [Glucophage XR] 500 mg PO BID Omeprazole 20 mg PO HS Sarilumab [Kevzara] 200 mg IV Q14D Pregabalin [Lyrica] 100 mg PO BID Insulin Glargine,Hum.rec.anlog [Lantus Solostar Pen] 15 units SQ HS predniSONE 5 mg PO DAILY Amiodarone [Cordarone] 200 mg PO BID Apixaban [Eliquis] 2.5 mg PO BID Insulin Aspart [NovoLOG Flexpen] 3 units SQ AC-TID Gabapentin [Neurontin] 400 mg PO TID predniSONE 3 mg PO DAILY lisinopriL [Zestril] See Taper PO DAILY 30 Days #30 Discontinued Metoprolol Succinate (ER) [Toprol XL] 12.5 mg PO DAILY 30 Days #30 tab Discharge Medication List Aspirin 81 mg PO DAILY 06/05/19 [History] Apixaban [Eliquis] 2.5 mg PO BID 06/25/24 [History] Empagliflozin [Jardiance] 10 mg PO DAILY 06/25/24 [History] Insulin Aspart [NovoLOG Flexpen] 3 units SQ AC-TID 06/25/24 [History] Insulin Glargine,Hum.rec.anlog [Lantus Solostar Pen] 15 units SQ HS 06/25/24 [History] Omeprazole 20 mg PO HS 06/25/24 [History] Pregabalin [Lyrica] 100 mg PO BID 06/25/24 [History] Sarilumab [Kevzara] 200 mg IV Q14D 06/25/24 [History] metFORMIN HCL ER [Glucophage XR] 500 mg PO BID 06/25/24 [History] Amiodarone [Cordarone] 200 mg PO BID 08/27/24 [History] Gabapentin [Neurontin] 400 mg PO TID 08/27/24 [History] predniSONE 3 mg PO DAILY 08/27/24 [History] predniSONE 5 mg PO DAILY 08/27/24 [History] Metoprolol Succinate (ER) [Toprol XL] 25 mg PO DAILY 30 Days #30 tab 08/28/24 [Rx] lisinopriL [Zestril] See Taper PO DAILY 30 Days #30 08/28/24 [Rx] Follow up Appointment(s)/Referral(s): Garry Cosby MD [STAFF PHYSICIAN] - 1 Week Yana Riley III, MD [Primary Care Provider] - 1-2 days [facility] [NON-STAFF] - Activity/Diet/Wound Care/Special Instructions: PATIENT EDUCATION MATERIAL Instructions following a heart rhythm device implant. 1. Keep dressing DRY for 5 DAYS. You may cover the area with Saran or Cling Wrap, prior to a shower. 2. The dressing will be removed in the Device Clinic at [facility]. Absorbable sutures were used to close the wound. 3. Avoid raising the left arm above the shoulder level. 4 week restriction 4. Avoid arm movements, like backscratching, rubbing the head, or pulling on a cord. 4 weeks restriction 5. Gentle range of motion movements of the shoulder, closest to the incision should be performed to avoid a frozen shoulder. (Pendulum exercises of the shoulder) 6. The opposite arm may be used freely. 7. Avoid driving for 7 days. 8. Avoid activities such as golfing, swimming, weed whacking, lifting more than 10 pounds weight, bowling, gymnastics and weight training/lifting. (6 weeks restriction) 9. Activities such as wood chopping with an axe, pull-ups in the gymnasium, power lifting, arc-welding, being close to home induction cooktops will always be a problem. 10. Arm sling is only a reminder not to raise the arm above the head. You do not need to keep the arm completely immobilized. Your free to move the arm and use it and for normal activities. In case of any problems, please call [facility], [place], @ [phone], Attention: Device Clinic Device clinic follow-up in 5 days Follow-up with primary filling technician in 1 months Discharge/Stand Alone Forms: Who Do I Call? Discharge Disposition: HOME WITH HOME HEALTH SERVICES
== END 2024-08-28 15:45 | disposition home health service (06) | DRG 243 ==
LOC: EC 14:57 → 3SCARD 17:40 → 1SOBS 19:15 → 3SCARD 19:16
PROVIDERS: ADMIT Hospitalist; ATTEND Hospitalist
PROC: 02H63JZ Insertion of Pacemaker Lead into Right Atrium, Percutaneous Approach (ICD-10-PCS; 2024-08-27)
PROC: 02HK3JZ Insertion of Pacemaker Lead into Right Ventricle, Percutaneous Approach (ICD-10-PCS; 2024-08-27)
PROC: 0JH606Z Insertion of Pacemaker, Dual Chamber into Chest Subcutaneous Tissue and Fascia, Open Approach (ICD-10-PCS; principal; 2024-08-27 18:30)
DX: R00.1 Bradycardia, unspecified (principal); E87.1 Hypo-osmolality and hyponatremia; E83.39 Other disorders of phosphorus metabolism; E11.9 Type 2 diabetes mellitus without complications; I10 Essential (primary) hypertension; M06.9 Rheumatoid arthritis, unspecified; J45.909 Unspecified asthma, uncomplicated; I42.8 Other cardiomyopathies; I45.81 Long QT syndrome; E78.5 Hyperlipidemia, unspecified; E86.0 Dehydration; H54.61 Unqualified visual loss, right eye, normal vision left eye; I48.19 Other persistent atrial fibrillation; I49.5 Sick sinus syndrome; G43.909 Migraine, unspecified, not intractable, without status migrainosus; Z86.73 Personal history of transient ischemic attack (TIA), and cerebral infarction without residual deficits; M19.90 Unspecified osteoarthritis, unspecified site; Z79.01 Long term (current) use of anticoagulants; Z79.4 Long term (current) use of insulin; Z79.82 Long term (current) use of aspirin; Z79.84 Long term (current) use of oral hypoglycemic drugs; Z79.899 Other long term (current) drug therapy; Z83.3 Family history of diabetes mellitus; Z90.710 Acquired absence of both cervix and uterus; Z96.652 Presence of left artificial knee joint; Z98.42 Cataract extraction status, left eye; Z98.41 Cataract extraction status, right eye; Z88.1 Allergy status to other antibiotic agents; Z88.8 Allergy status to other drugs, medicaments and biological substances; Z91.048 Other nonmedicinal substance allergy status; I95.9 Hypotension, unspecified; R41.82 Altered mental status, unspecified; Z88.5 Allergy status to narcotic agent
CPT/HCPCS: 33208; 36415; 71045; 80053; 82140; 83605; 83690; 83735; 83880; 84100; 84439; 84443; 84484; 85025; 85610; 85730; 93005; 96361; 96365; 96366; 96375; 99291

== ENCOUNTER → 2025-02-24 | Outpatient (CLI) | payer MEDICARE, OTHER ==
--- NOTE | 2025-02-28 08:38 | CT ---
EXAMINATION TYPE: CT lumbar spine wo con DATE OF EXAM: 02/24/2025 12:43 PM COMPARISON: None. 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 Reconstructed images are performed in the coronal and sagittal planes. Contrast used: mL of , (none if empty) Oral contrast used: (none if empty) CT DLP: 368.6 mGycm, Automated exposure control for dose reduction was used. FINDINGS: T12-L1: No focal disc herniation or significant disc bulge is evident. No spinal canal stenosis. Se jair right foraminal stenosis present. Mild left foraminal narrowing is present L1-L2: Mild disc bulge and anterior thecal sac flattening. No spinal canal stenosis is evident. Mild to moderate foraminal narrowing is present. L2-L3: Disc bulging is mild anterior thecal sac flattening. Facet hypertrophy and ligamentum flavum l axity contributing to spinal canal narrowing. Moderate left and severe right foraminal stenosis is pr esent L3-L4: Broad-based disc bulge with mild anterior thecal sac flattening. Facet hypertrophy and ligamen barbara flavum laxity are contributing to moderate spinal canal stenosis. Severe bilateral foraminal narr owing is present. L4-L5: Disc uncovering is present with moderate anterior thecal sac compression. Facet hypertrophy an d ligamentum flavum laxity contributing to spinal canal stenosis. Severe bilateral foraminal stenosis present. On the left this may have disc material extending towards the exiting nerve root. Correlate for left L5 radicular symptoms. L5-S1: No focal disc herniation or significant disc bulge is evident. No spinal canal stenosis. Sev ere bilateral foraminal narrowing is present. There is a grade 1 spondylolisthesis of L4 and L5. Diffuse loss of disc height is present throughout the lumbar spine but appears greatest at L3-4 through L5-S1. Some minimal vacuum disc phenomenon is p resent at these levels. Scoliosis is present with convexity to the left. Note is made of a cyst at the superior pole left kidney IMPRESSION: 1. Spinal canal stenosis L4-5 and to a lesser degree L3-4 and L2-3. 2. Multilevel severe foraminal stenosis may be greatest on the left at L4-5. Correlate with radicular symptoms. 3. Grade 1 spondylolisthesis of L4 anteriorly on L5. [facility], , 02/28/2025 8:35 AM
== END | disposition home or self-care (01) ==
LOC: RADCTMAIN 12:08
PROVIDERS: ATTEND Physical Medicine & Rehabilitation
DX: M47.816 Spondylosis without myelopathy or radiculopathy, lumbar region (principal); M48.061 Spinal stenosis, lumbar region without neurogenic claudication; M43.16 Spondylolisthesis, lumbar region
CPT/HCPCS: 72131